=== PATIENT | male | born 1950 | race Caucasian/White ===

== ENCOUNTER 2017-10-19 11:16 | Observation (INO) | payer MEDICARE ==
[2017-10-19] MEDS ORDERED: Nitrostat 0.4 MG (ED) SL ONE ×2 (11:49→12:02)
--- NOTE | 2017-10-19 11:54 | ERPHSYRPT ---
- History of Present Illness Time Seen by Provider: 10/19/17 11:35 Historian: patient Exam Limitations: no limitations Patient Subjective Stated Complaint: pt reports indigestion in middle of chest radiating throughout chest-reports vomiting pain takes breath away and breaking out in sweat Triage Nursing Assessment: pt pink warm and dry-resp nonlabored-pt belching intermittant throughout triage-cap refill 3 seconds Physician History: 66 y/o male with history of a fib and DM comes to the ER with complaints of indigestion of the chest for the last few days. Pt describes the pain as pressure, constant, 10/10 and pt has not taken any pain meds. Pt also admits to having nausea, cough and congestion. Pt is on xarelto for a fib. Pt denies any fever, chills, dizziness, SOB or palpitations. Timing/Duration: day(s) Activities at Onset: none Quality: pressure Location: substernal Chest Pain Radiation: no radiation Severity of Pain-Max: severe Severity of Pain-Current: severe Modifying Factors: Improves With: nothing Associated Symptoms: nausea, vomiting Prior Chest Pain/Cardiac Workup: angina Nitro Today/Relief: no nitro taken today Aspirin Treatment Today: no aspirin today Allergies/Adverse Reactions: No Known Allergies Allergy (Verified 10/19/17 11:40) Home Medications: Gabapentin 300 mg [Neurontin 300 mg] 600 mg PO Q4H 02/22/12 [History] Insulin Aspart [Novolog] 10 units SQ TIDWMEALS 02/22/12 [History] Lisinopril 40 mg PO DAILY 02/22/12 [History] Insulin Glargine [Lantus Insulin] 15 unit SQ QAM 11/16/13 [History] Insulin Aspart [NovoLOG Insulin] 0 unit SQ UD PRN 05/20/16 [History] Rivaroxaban [Xarelto] 20 mg PO DAILY 05/20/16 [History] Atorvastatin Calcium [Lipitor] 10 mg PO DAILY 08/19/16 [History] Docusate Sodium [Colace Clear] 50 mg PO QID 08/19/16 [History] Metoprolol Tartrate 25 mg [Lopressor 25MG Tab] 12.5 mg PO BID 08/19/16 [ History] Hydrocodone/APAP 10/325 mg [Boling 10/325 MG Tablet] 1 tab PO Q4-6HPRN PRN 09/15/16 [History] Hx Tetanus, Diphtheria Vaccination/Date Given: Yes Hx Influenza Vaccination/Date Given: Yes Hx Pneumococcal Vaccination/Date Given: Yes Immunizations Up to Date: Yes - Review of Systems Constitutional: No Fever, No Chills Eyes: No Symptoms Ears, Nose, & Throat: No Symptoms Respiratory: No Cough, No Dyspnea Cardiac: Chest Pain, No Edema, No Syncope Abdominal/Gastrointestinal: No Abdominal Pain, No Nausea, No Vomiting, No Diarrhea Genitourinary Symptoms: No Dysuria Musculoskeletal: No Back Pain, No Neck Pain Skin: No Rash Neurological: No Dizziness, No Focal Weakness, No Sensory Changes Psychological: No Symptoms Endocrine: No Symptoms All Other Systems: Reviewed and Negative - Past Medical History Pertinent Past Medical History: Yes Neurological History: No Pertinent History ENT History: Glaucoma Cardiac History: Arrhythmia, Hypertension, Peripheral Vascular Disease Respiratory History: No Pertinent History Endocrine Medical History: Diabetes Type II Musculoskeletal History: Arthritis GI Medical History: Cirrhosis, GERD, Hepatitis, Hernia History: No Pertinent History Psycho-Social History: Anxiety, Bipolar, Depression, Other Male Reproductive Disorders: No Pertinent History Other Medical History: hepatitis C, AFib, has tried to commit suicide in the past - Past Surgical History Past Surgical History: Yes Neuro Surgical History: No Pertinent History Cardiac: No Pertinent History Respiratory: No Pertinent History Gastrointestinal: Hernia Repair Genitourinary: No Pertinent History Musculoskeletal: Amputation Male Surgical History: No Pertinent History Other Surgical History: 4th and 5th toe amputated off of left foot. 5th toe amputated off of the right foot - Social History Smoking Status: Former smoker Exposure to second hand smoke: No Drug Use: none Patient Lives Alone: Yes - Nursing Vital Signs Nursing Vital Signs: Initial Vital Signs Temperature 98.9 F 10/19/17 11:32 Pulse Rate 80 10/19/17 11:32 Respiratory Rate 20 10/19/17 11:32 Blood Pressure 189/100 10/19/17 11:32 O2 Sat by Pulse Oximetry 100 10/19/17 11:32 Pain Scale Pain Intensity 10 - Physical Exam General Appearance: no apparent distress, alert Eye Exam: PERRL/EOMI, eyes nml inspection Ears, Nose, Throat Exam: normal ENT inspection, moist mucous membranes Neck Exam: normal inspection, non-tender, supple, full range of motion Respiratory Exam: normal breath sounds, lungs clear, No chest tenderness, No respiratory distress Cardiovascular Exam: regular rate/rhythm, normal heart sounds Gastrointestinal/Abdomen Exam: soft, No tenderness, No mass Back Exam: normal inspection, No CVA tenderness, No vertebral tenderness Extremity Exam: normal inspection, normal range of motion Neurologic Exam: alert, oriented x 3, cooperative, normal mood/affect, sensation nml, No motor deficits Skin Exam: normal color, warm, dry SpO2: 100 Oxygen Delivery: Room Air - Course Nursing assessment & vital signs reviewed: Yes EKG Interpreted by Me: Sinus Tach, Other (flat t waves V3-V6) Ordered Tests: Active Orders 24 hr Category Date Time Status Bone Crusher STAT Care 10/19/17 11:49 Active EKG-ER Only STAT Care 10/19/17 11:49 Active IV Insertion STAT Care 10/19/17 11:49 Active CHEST 2 VIEWS (PA AND LAT) Stat Exams 10/19/17 11:49 Completed CBC W DIFF Stat Lab 10/19/17 12:00 Completed CK-Creatinine Phosphokinase Stat Lab 10/19/17 12:00 Completed CMP Stat Lab 10/19/17 12:00 Completed Manual Differential NC Stat Lab 10/19/17 12:00 Completed NT PRO BNP Stat Lab 10/19/17 12:00 Completed PROTIME WITH INR Stat Lab 10/19/17 12:00 Completed PTT Stat Lab 10/19/17 12:00 Completed TROPONIN Q3H Lab 10/19/17 12:00 Completed TROPONIN Q3H Lab 10/19/17 15:00 Ordered TROPONIN Q3H Lab 10/19/17 18:00 Ordered TROPONIN Q3H Lab 10/19/17 21:00 Ordered TROPONIN Q3H Lab 10/20/17 00:00 Ordered Medication Summary Discontinued Medications Generic Name Dose Route Start Last Admin Trade Name Freq PRN Reason Stop Dose Admin Al Hydrox/Mg Hydrox/Simethicone Confirm 10/19/17 12:22 Maalox Es 30 Ml Unit Dose Administered 10/19/17 12:23 Dose 30 ml .ROUTE .STK-MED ONE Lidocaine HCl Confirm 10/19/17 12:22 Xylocaine Hcl Viscous * Administered 10/19/17 12:23 Dose 15 ml .ROUTE .STK-MED ONE Magnesium Hydroxide 45 ml 10/19/17 12:17 10/19/17 12:26 Gi Cocktail 45 Ml (Maalox/Lidocaine) PO 10/19/17 12:18 45 ml STAT ONE Administration Morphine Sulfate 4 mg 10/19/17 12:49 Morphine Sulfate 4 Mg Inj IV 10/19/17 12:50 STAT ONE Nitroglycerin 0.4 mg 10/19/17 11:49 10/19/17 12:11 Nitrostat 0.4 Mg (Ed) SL 10/19/17 11:50 0.4 mg STAT ONE Administration Nitroglycerin Confirm 10/19/17 12:02 Nitrostat 0.4 Mg (Ed) Administered 10/19/17 12:03 Dose 0.4 mg SL .STK-MED ONE Ondansetron HCl 4 mg 10/19/17 12:49 Zofran 4 Mg/2 Ml Vial IV 10/19/17 12:50 STAT ONE Lab/Rad Data: Laboratory Result Diagrams 10/19/17 12:00 10/19/17 12:00 Laboratory Results 10/19/17 10/19/17 10/19/17 Range/Units 12:00 12:00 12:00 WBC (4.0-10.5) K/mm3 RBC (4.1-5.6) M/mm3 Hgb (12.5-18.0) gm/dl Hct (42-50) % MCV (78-100) fl MCH (26-32) pg MCHC (32-36) g/dl RDW (11.5-14.0) % Plt Count (150-450) K/mm3 MPV (6-9.5) fl Segmented Neutrophils (36.-66.) % Lymphocytes (Manual) (24-44) % Monocytes (Manual) (0.0-12.0) % Eosinophils (Manual) (0.00-3.0) % Differential Comment Platelet Estimate (NORMAL) Polychromasia Hypochromasia Poikilocytosis Anisocytosis INR 2.29 (0.8-3.0) APTT 40.3 H (24.1-36.1) SECONDS Sodium 136 (136-145) mEq/L Potassium 3.9 (3.5-5.1) mEq/L Chloride 100 (98-107) mEq/L Carbon Dioxide 28.5 (21-32) mEq/L Anion Gap 11.6 (5-15) MEQ/L BUN 16 (9-20) mg/dL Creatinine 0.92 (0.55-1.30) mg/dl Estimated GFR > 60 ML/MIN Glucose 295 H (70-110) MG/DL Calcium 8.9 (8.5-10.1) mg/dL Total Bilirubin 1.50 H (0.2-1.0) mg/dL AST 45 H (15-37) U/L ALT 13 (12-78) U/L Alkaline Phosphatase 122 H (46-116) U/L Creatine Kinase 102 (39-308) U/L Troponin I < 0.017 (0.000-0.056) ng/ml NT-Pro-B Natriuret Pep 415 H (0-125) pg/ml Serum Total Protein 7.1 (6.4-8.2) gm/dL Albumin 3.2 L (3.4-5.0) g/dL 10/19/17 Range/Units 12:00 WBC 2.8 L (4.0-10.5) K/mm3 RBC 3.99 L (4.1-5.6) M/mm3 Hgb 11.4 L (12.5-18.0) gm/dl Hct 35.0 L (42-50) % MCV 87.7 (78-100) fl MCH 28.5 (26-32) pg MCHC 32.6 (32-36) g/dl RDW 16.1 H (11.5-14.0) % Plt Count 50 L (150-450) K/mm3 MPV 12.6 H (6-9.5) fl Segmented Neutrophils 79 H (36.-66.) % Lymphocytes (Manual) 18 L (24-44) % Monocytes (Manual) 1 (0.0-12.0) % Eosinophils (Manual) 2 (0.00-3.0) % Differential Comment ABNORMAL Platelet Estimate DECREASED (NORMAL) Polychromasia RARE Hypochromasia 1+ Poikilocytosis 1+ Anisocytosis 1+ INR (0.8-3.0) APTT (24.1-36.1) SECONDS Sodium (136-145) mEq/L Potassium (3.5-5.1) mEq/L Chloride (98-107) mEq/L Carbon Dioxide (21-32) mEq/L Anion Gap (5-15) MEQ/L BUN (9-20) mg/dL Creatinine (0.55-1.30) mg/dl Estimated GFR ML/MIN Glucose (70-110) MG/DL Calcium (8.5-10.1) mg/dL Total Bilirubin (0.2-1.0) mg/dL AST (15-37) U/L ALT (12-78) U/L Alkaline Phosphatase (46-116) U/L Creatine Kinase (39-308) U/L Troponin I (0.000-0.056) ng/ml NT-Pro-B Natriuret Pep (0-125) pg/ml Serum Total Protein (6.4-8.2) gm/dL Albumin (3.4-5.0) g/dL - Progress Progress: unchanged Progress Note: 10/19/17 12:49 The patient is still having chest pain after receiving nitro and GI cocktail. The EKG does not show any acute findings and the first troponin is negative. Pt is on eliquis. The patient also has chronically low platelet at 50,000 today. The patient will be admitted to Dr Franklin for chest pain. 10/19/17 13:00 - Departure Time of Disposition: 12:52 Departure Disposition: In-patient Admission Clinical Impression: Chest pain Qualifiers: Chest pain type: unspecified Qualified Code(s): R07.9 - Chest pain, unspecified Condition: Fair Critical Care Time: Yes Critical Care Time(excluding separately billable procedures): 30-74 minutes Referrals: ARNAV GONZÁLES [Primary Care Provider] -
[2017-10-19 12:05] LABS: Granulocyte Absolute (ANC) 1.85 (1.4-6.9); Hemoglobin 11.4 gm/dl (12.5-18.0); Mean Cell Volume 87.7 fl (78-100); Mean Corpuscular Hgb Concent. 32.6 g/dl (32-36); Mean Platelet Volume 12.6 fl (6-9.5); Platelet Count 50 K/mm3 (150-450); Red Blood Count 3.99 M/mm3 (4.1-5.6); Red Cell Distribution Width 16.1 % (11.5-14.0); White Blood Count 2.8 K/mm3 (4.0-10.5)
[2017-10-19 12:07] LABS: Mean Corpuscular Hemoglobin 28.5 pg (26-32)
[2017-10-19] MEDS ORDERED: GI COCKTAIL 45 ML (Maalox/Lidocaine) PO ONE (12:17)
[2017-10-19] MEDS ORDERED: MAALOX ES 30 ML UNIT DOSE ONE (12:22)
[2017-10-19] MEDS ORDERED: XYLOCAINE HCl Viscous ONE (12:22)
--- NOTE | 2017-10-19 12:22 | XRAY ---
Indication: Chest pain. Comparison: August 12, 2016. PA/lateral chest again demonstrates normal heart and lungs with a few incidental calcified granulomas. Bony thorax intact again with mild degenerative changes. No new/acute findings.
[2017-10-19 12:25] LABS: INR 2.29 (0.8-3.0)
[2017-10-19 12:28] LABS: PTT 40.3 SECONDS (24.1-36.1)
[2017-10-19 12:32] LABS: Eosinophil 2 % (0.00-3.0); Lymphocytes 18 % (24-44); Monocyte 1 % (0.0-12.0); Neutrophils 79 % (36.-66.); Total Cells Counted 100
[2017-10-19 12:33] LABS: ANISOCYTOSIS 1+; Hypochromia 1+; Platelet Estimate DECREASED (NORMAL); Poikilocytosis 1+; Polychromasia RARE
[2017-10-19 12:35] LABS: ALBUMIN 3.2 g/dL (3.4-5.0); ALKALINE PHOSPHATASE 122 U/L (46-116); ANION GAP 11.6 MEQ/L (5-15); BLOOD UREA NITROGEN 16 mg/dL (9-20); CHLORIDE 100 mEq/L (98-107); CK-Creatinine Phosphokinase 102 U/L (39-308); Calcium 8.9 mg/dL (8.5-10.1); Carbon Dioxide 28.5 mEq/L (21-32); Creatinine 1 0.92 mg/dl (0.55-1.30); EST GLOMERULAR FILTRATION RATE > 60 ML/MIN; Glucose 295 MG/DL (70-110); NT PRO BNP 415 pg/ml (0-125); Potassium 3.9 mEq/L (3.5-5.1); SGOT/AST 45 U/L (15-37); SGPT/ALT 13 U/L (12-78); SODIUM 136 mEq/L (136-145); Total Protein 7.1 gm/dL (6.4-8.2)
[2017-10-19] MEDS ORDERED: Zofran 4 MG/2 ML VIAL IV ONE (12:49)
[2017-10-19] MEDS ORDERED: MORPHINE SULFATE 4 MG INJ IV ONE (12:49)
[2017-10-19] MEDS ORDERED: MORPHINE SULFATE 4 MG INJ ONE (12:59)
[2017-10-19] MEDS ORDERED: TYLENOL 325 MG PO PRN (13:00)
[2017-10-19] MEDS ORDERED: MILK OF MAGNESIA 30 ML PO PRN (13:00)
[2017-10-19] MEDS ORDERED: Senokot-S Tablet PO PRN (13:00)
[2017-10-19] MEDS ORDERED: Zofran 4 MG/2 ML VIAL IV PRN (13:00)
[2017-10-19] MEDS ORDERED: DIPRIVAN 200 MG/20 ML IV ONE (14:06)
[2017-10-19] MEDS ORDERED: Ketamine HCl 50 MG/ML IV ONE (14:06)
[2017-10-19] MEDS: MORPHINE SULFATE 2 MG INJ IV PRN ×2 (16:32→20:50)
[2017-10-19] MEDS: NovoLOG Insulin SQ PRN ×2 (16:49→21:56)
[2017-10-19] MEDS ORDERED: Zocor 10MG ONE (22:50)
[2017-10-19] MEDS: Lopressor 25MG Tab PO SCH (22:51)
[2017-10-19] MEDS: Zocor 10MG PO SCH (22:51)
[2017-10-19] MEDS: NEURONTIN 300 MG PO SCH (22:52)
[2017-10-19] MEDS: MAALOX ES 30 ML UNIT DOSE PO PRN (22:52)
[2017-10-19] MEDS: Lantus Insulin SQ SCH (22:54)
[2017-10-20] MEDS: MORPHINE SULFATE 2 MG INJ IV PRN ×5 (04:34→20:52)
[2017-10-20 06:36] LABS: Risk Ratio 2.9
[2017-10-20] MEDS: NovoLOG Insulin SQ PRN ×4 (07:59→21:34)
[2017-10-20] MEDS: MAALOX ES 30 ML UNIT DOSE PO PRN (08:34)
[2017-10-20] MEDS: NEURONTIN 300 MG PO SCH ×3 (08:35→20:52)
[2017-10-20] MEDS: Colace 100 MG PO SCH (08:35)
[2017-10-20] MEDS: XARELTO 10 MG TABLET PO SCH (08:35)
[2017-10-20] MEDS: LASIX 20 MG PO SCH (08:35)
[2017-10-20] MEDS: Lopressor 25MG Tab PO SCH ×2 (08:36→20:53)
[2017-10-20] MEDS ORDERED: DOCUSATE SODIUM 50 MG PO SCH (10:00)
[2017-10-20] MEDS ORDERED: NON-FORMULARY ITEM (Rivaroxaban [Xarelto] 20 MG) PO SCH (10:00)
[2017-10-20] MEDS: Carafate 1 GM PO SCH ×3 (11:46→20:53)
--- NOTE | 2017-10-20 15:04 | PCM.HP ---
History of Present Illness - Chief Complaint Chief Complaint: CHEST PAIN History of Present Illness: is a 66 year old male pt of mine from [facility] who came to ER with 2d hx of epigastric and RUQ pain. Some vomiting. no fever. Pain was 10/10 on admission, burning. Now 8-9/10. He did tolerate some breakfast. He has a hx of gastritis, EGD done February 2017 at the [facility] showed the gastritis and small varices. Denies any melena or hematochezia. He has a long history of alcoholism, which he has always admitted to me, but he states that his last drink was 6 mo ago. Pt is being treated for liver cancer - according to pt report has no other areas of cancer. - Review of Systems Respiratory: Cough Cardiac: Chest Pain Abdominal/Gastrointestinal: Abdominal Pain, Nausea, Vomiting Psychological: Alcohol Abuse (no EtOH per pt report x 6 mo), No Depression, No Suicidal Ideations All Other Systems: Reviewed and Negative Medications & Allergies Home Medications: Home Medication List Gabapentin 300 mg [Neurontin 300 mg] 600 mg PO TID 02/22/12 [History Confirmed 10/19/17] Insulin Glargine [Lantus Insulin] 50 unit SQ QHS 11/16/13 [History Confirmed 10/19/17] Insulin Aspart [NovoLOG Insulin] 0 unit SQ UD PRN 05/20/16 [History Confirmed 10/19/17] Rivaroxaban [Xarelto] 20 mg PO DAILY 05/20/16 [History Confirmed 10/19/17] Atorvastatin Calcium [Lipitor] 10 mg PO QHS 08/19/16 [History Confirmed 10/19/17 ] Docusate Sodium [Colace Clear] 50 mg PO DAILY 08/19/16 [History Confirmed ] Metoprolol Tartrate 25 mg [Lopressor 25MG Tab] 12.5 mg PO BID 08/19/16 [ History Confirmed 10/19/17] Furosemide 20 mg [Lasix 20 mg] 20 mg PO DAILY 10/19/17 [History Confirmed 10/19/17] Allergies/Adverse Reactions: Allergies Allergy/AdvReac Type Severity Reaction Status Date / Time No Known Allergies Allergy Verified 10/19/17 11:40 - Past Medical History Past Medical History: Yes Neurological History: No Pertinent History ENT History: Glaucoma Cardiac History: Arrhythmia, Hypertension, Peripheral Vascular Disease Respiratory History: No Pertinent History Endocrine Medical History: Diabetes Type II Musculoskelatal History: Arthritis GI Medical History: Cirrhosis, GERD, Hepatitis, Hernia History: No Pertinent History Pyscho-Social History: Anxiety, Bipolar, Depression, Other Male Reproductive Disorders: No Pertinent History Comment: hepatitis C, AFib, has tried to commit suicide in the past - Past Surgical History Past Surgical History: Yes Neuro Surgical History: No Pertinent History Cardiac History: No Pertinent History Respiratory Surgery: No Pertinent History GI Surgical History: Hernia Repair Genitourinary Surgical Hx: No Pertinent History Musculskeletal Surgical Hx: Amputation Male Surgical History: No Pertinent History Other Surgical History: 4th and 5th toe amputated off of left foot. 5th toe amputated off of the right foot - Social History Smoking Status: Former smoker How long have you smoked: 15 Exposure to second hand smoke: No Alcohol: Rarely Drug Use: none - Physical Exam Vital Signs: Vital Signs - 24 hr Temp Pulse Resp BP Pulse Ox 10/20/17 12:00 97 10/20/17 11:25 98.1 F 76 18 130/66 98 10/20/17 08:00 98 10/20/17 07:25 98.2 F 78 22 111/68 97 10/20/17 04:00 98.1 F 75 20 110/59 95 10/20/17 00:15 97.4 F 84 18 153/83 97 10/20/17 00:00 97 10/19/17 20:00 97.9 F 72 20 127/65 97 10/19/17 16:00 97 General Appearance: no apparent distress, alert Neurologic Exam: oriented x 3, cooperative, normal mood/affect Eye Exam: eyes nml inspection Ears, Nose, Throat Exam: moist mucous membranes Neck Exam: normal inspection Respiratory Exam: normal breath sounds, lungs clear, No crackles/rales, No rhonchi, No wheezing Cardiovascular Exam: normal heart sounds, irregular, No murmur Gastrointestinal/Abdomen Exam: soft, normal bowel sounds, tenderness (epigsatrum , RUQ), No mass, No guarding, No rebound Extremity Exam: normal inspection, No pedal edema, No swelling Skin Exam: normal color, warm, dry, No rash Results - Labs Lab/Micro Results: Accuchecks Date 10/19/17 Time 16:30 Accucheck Value: 294 Accucheck Value: 157 Accucheck Value: 292 Accucheck Value: 268 Lab Results-Last 24 Hours 10/19/17 10/19/17 10/19/17 Range/Units 15:13 15:30 18:37 Hemoglobin A1c 9.4 H (4.5-6.2) Troponin I < 0.017 < 0.017 (0.000-0.056) ng/ml Triglycerides (30-200) mg/dL Cholesterol (100-200) mg/dL LDL Cholesterol (5-99) mg/dL HDL Cholesterol (35-60) mg/dL Heart Disease Risk Ratio 10/19/17 10/20/17 10/20/17 Range/Units 21:30 00:25 05:42 Hemoglobin A1c (4.5-6.2) Troponin I < 0.017 < 0.017 (0.000-0.056) ng/ml Triglycerides 46 (30-200) mg/dL Cholesterol 101 (100-200) mg/dL LDL Cholesterol 60 (5-99) mg/dL HDL Cholesterol 35 (35-60) mg/dL Heart Disease Risk Ratio 2.9 Accuchecks Date 10/19/17 Time 16:30 Accucheck Value: 294 Accucheck Value: 157 Accucheck Value: 292 Accucheck Value: 268 - Radiology Impressions Radiology Exams & Impressions: Radiology Procedures Category Date Time Status GALLBLADDER [US] Routine Exams 10/20/17 Ordered - Other Procedures and Tests Respiratory Therapy 10/20/17 05:00 EKG ONCE 10/21/17 05:00 EKG ONCE 10/22/17 05:00 EKG ONCE Assessment/Plan (1) Abdominal pain Current Visit: Yes Status: Acute Qualifiers: Abdominal location: epigastric Qualified Code(s): R10.13 - Epigastric pain Assessment & Plan: Concern for worsening gastritic or PUD. Starting pt on carafate. He has been on PPI. EGD in the morning. Also check GB u/s today. Code(s): R10.9 - UNSPECIFIED ABDOMINAL PAIN (2) Chest pain Current Visit: Yes Status: Acute Qualifiers: Chest pain type: unspecified Qualified Code(s): R07.9 - Chest pain, unspecified Assessment & Plan: SC ruled out wiht negative troponins. Code(s): R07.9 - CHEST PAIN, UNSPECIFIED (3) Alcohol abuse Current Visit: No Status: Resolved Assessment & Plan: Hx of - pt states none x 6 mo. Code(s): F10.10 - ALCOHOL ABUSE, UNCOMPLICATED (4) Diabetes mellitus Current Visit: No Status: Chronic Assessment & Plan: Poorly controlled - BS 157-292 here. A1c = 9.4. Code(s): E11.9 - TYPE 2 DIABETES MELLITUS WITHOUT COMPLICATIONS (5) Liver cancer Current Visit: Yes Status: Acute Qualifiers: Liver malignancy type: unspecified primary liver malignancy Qualified Code( s): C22.8 - Malignant neoplasm of liver, primary, unspecified as to type Assessment & Plan: [facility] Code(s): C22.9 - MALIG NEOPLASM OF LIVER, NOT SPECIFIED PRIMARY OR SEC
--- NOTE | 2017-10-20 16:12 | XRAY ---
Indication: Epigastric pain. History liver carcinoma with chemotherapy and radiation therapy. Two-dimensional right upper quadrant abdominal sonogram performed. Comparison: None Gallbladder appears partially contracted without gallstones. There is wall thickening up to 3.4 mm. No pericholecystic fluid. Common bile duct measures 4.9 mm. No intrahepatic biliary distention. Visualized portions of the liver homogeneous without focal solid/cystic mass or ascites. Pancreas not well visualized due to overlying bowel gas. Right kidney measures 12.2 cm in length and sonographically unremarkable. Impression: 1. Gallbladder wall thickening without gallstones or pericholecystic fluid. Rule out acalculous chronic cholecystitis. 2. Pancreas not well evaluated. 3. Remaining right upper quadrant sonogram is negative.
[2017-10-20] MEDS: Zocor 10MG PO SCH (20:53)
[2017-10-20] MEDS: Lantus Insulin SQ SCH (20:55)
[2017-10-21] MEDS: MORPHINE SULFATE 2 MG INJ IV PRN ×3 (04:30→21:06)
[2017-10-21] MEDS ORDERED: Lactated Ringers 1,000 ML IV ONE (05:56)
[2017-10-21] MEDS ORDERED: Lactated Ringers 1,000 ML IV SCH (06:30)
[2017-10-21] MEDS: Carafate 1 GM PO SCH ×4 (08:27→21:07)
[2017-10-21] MEDS: LASIX 20 MG PO SCH (08:27)
[2017-10-21] MEDS: Lopressor 25MG Tab PO SCH ×2 (08:28→21:07)
[2017-10-21] MEDS: NEURONTIN 300 MG PO SCH ×3 (08:28→21:06)
[2017-10-21] MEDS: XARELTO 10 MG TABLET PO SCH (08:28)
[2017-10-21] MEDS: Colace 100 MG PO SCH (08:28)
--- NOTE | 2017-10-21 08:34 | PCM.NOTE ---
Date and Time: 10/21/17828 Subjective Assessment: He has continued to have epigastric pain radiating into the chest overnight. Just returned from EGD, he thinks the nurse told him he has gastritis. GB u/s done yesterday showed thickening of the GB wall, no stones. He is very hungry this morning. - Review of Systems Constitutional: No Fever Abdominal/Gastrointestinal: Abdominal Pain Objective Exam General Appearance: no apparent distress, alert Neurologic Exam: oriented x 3, cooperative Skin Exam: normal color, warm, dry, No rash Respiratory Exam: normal breath sounds, lungs clear, wheezing (faint scattered) , No crackles/rales, No rhonchi Cardiovascular Exam: regular rate/rhythm, normal heart sounds, No murmur Extremity Exam: normal inspection, No pedal edema, No swelling Back Exam: normal inspection, No rash OBJECTIVE DATA Vital Signs: Vital Signs - 24 hr Temp Pulse Resp BP Pulse Ox 10/21/17 07:20 98.3 F 85 20 141/82 96 10/21/17 06:05 98.3 F 85 20 141/82 96 10/21/17 04:10 98.7 F 77 20 124/67 96 10/21/17 04:00 98 10/21/17 00:01 97.7 F 68 16 120/72 98 10/21/17 00:00 95 10/20/17 20:05 97.9 F 70 18 138/81 99 10/20/17 20:00 99 10/20/17 16:00 96 10/20/17 15:42 98 F 80 20 126/85 96 10/20/17 12:00 97 10/20/17 11:25 98.1 F 76 18 130/66 98 Pain Assessment - Last Documented Pain Intensity 8 Pain Scale Used 0-10 Pain Scale Intake and Output: Intake & Output 10/18/17 10/19/17 10/20/17 10/21/17 11:59 11:59 11:59 11:59 Intake Total 1200 1010 Output Total 700 Balance 1200 310 Weight 110.4 kg 110.4 kg Lab Results: Accuchecks Date 10/21/17 Date 10/20/17 Time 07:00 Time 22:00 Accucheck Value: 83 Accucheck Value: 279 Accucheck Value: 212 Accucheck Value: 294 Radiology Exams: Radiology Procedures Category Date Time Status GALLBLADDER [US] Routine Exams 10/20/17 15:22 Completed HIDA-GALL BLADDER [NUCMED] Routine Exams 10/21/17 08:28 Ordered Assessment/Plan (1) Abdominal pain Current Visit: Yes Status: Acute Qualifiers: Abdominal location: epigastric Qualified Code(s): R10.13 - Epigastric pain Assessment & Plan: Do HIDA scan today. EGD report is pending. I started him on carafate yesterday , and started protonix today (I mistakenly thought he was already on a PPI). He had an EGD and colonoscopy at the [facility] in February 2017 (records were faxed to the office last week, should be scanned into [facility] [facility]). Showed gastritis and multiple colon polyps. Code(s): R10.9 - UNSPECIFIED ABDOMINAL PAIN (2) Chest pain Current Visit: Yes Status: Acute Qualifiers: Chest pain type: unspecified Qualified Code(s): R07.9 - Chest pain, unspecified Assessment & Plan: HI ruled out on admission. nitro without relief yesterday. Code(s): R07.9 - CHEST PAIN, UNSPECIFIED (3) Alcohol abuse Current Visit: No Status: Resolved Assessment & Plan: long hx. Claims no alcohol x 6 mo. Code(s): F10.10 - ALCOHOL ABUSE, UNCOMPLICATED (4) Diabetes mellitus Current Visit: No Status: Chronic Assessment & Plan: Uncontrolled. A1c 9.4. Code(s): E11.9 - TYPE 2 DIABETES MELLITUS WITHOUT COMPLICATIONS (5) Liver cancer Current Visit: Yes Status: Acute Qualifiers: Liver malignancy type: unspecified primary liver malignancy Qualified Code( s): C22.8 - Malignant neoplasm of liver, primary, unspecified as to type Assessment & Plan: Being treated now with radiation, after having had chemotherapy (per pt report) . He states it is a small area of cancer and claims no metastases have been found. Code(s): C22.9 - MALIG NEOPLASM OF LIVER, NOT SPECIFIED PRIMARY OR SEC
[2017-10-21 08:42] LABS: BASOPHIL % 0.4 % (0.0-0.4); Basophil (Absolute #) 0.01 (0-0.4); Eosinophil % 3.9 % (0.00-5.0); Granulocyte Absolute (ANC) 1.64 (1.4-6.9); Granulocytes % 63.3 % (36.0-66.0); Hematocrit 36.1 % (42-50); Hemoglobin 11.4 gm/dl (12.5-18.0); Lymphocyte (Absolute #) 0.41 (1.0-4.6); Lymphocytes % 15.8 % (24.0-44.0); Mean Cell Volume 89.6 fl (78-100); Mean Corpuscular Hgb Concent. 31.6 g/dl (32-36); Mean Platelet Volume 12.2 fl (6-9.5); Monocyte (Absolute #) 0.43 (0.0-1.3); Monocytes % 16.6 % (0.0-12.0); Platelet Count 48 K/mm3 (150-450); Red Blood Count 4.03 M/mm3 (4.1-5.6); Red Cell Distribution Width 16.2 % (11.5-14.0); White Blood Count 2.6 K/mm3 (4.0-10.5)
[2017-10-21 09:03] LABS: ANION GAP 9.2 MEQ/L (5-15); BLOOD UREA NITROGEN 13 mg/dL (9-20); CHLORIDE 103 mEq/L (98-107); Calcium 8.3 mg/dL (8.5-10.1); Carbon Dioxide 30.6 mEq/L (21-32); Creatinine 1 0.87 mg/dl (0.55-1.30); EST GLOMERULAR FILTRATION RATE > 60 ML/MIN; Glucose 109 MG/DL (70-110); Potassium 4.1 mEq/L (3.5-5.1); SODIUM 139 mEq/L (136-145)
[2017-10-21 09:08] LABS: Mean Corpuscular Hemoglobin 28.2 pg (26-32)
[2017-10-21 09:13] LABS: Slide Review 1 YES
[2017-10-21] MEDS ORDERED: Protonix 40MG Tablet PO SCH (10:00)
--- NOTE | 2017-10-21 11:58 | OP ---
SURGERY DATE/TIME: 10/21/201720 PREOPERATIVE DIAGNOSIS: Chest pain, nausea, reflux. POSTOPERATIVE DIAGNOSIS: Severe gastritis. PROCEDURE: Esophagogastroduodenoscopy with biopsy. SURGEON: Dr. Funk. ANESTHESIA: Medications were given by the anesthesia department. BRIEF HISTORY: The patient is a 66 year old white male patient who is currently hospitalized for chest discomfort. His heart had apparently been checked out and fine at this point. We felt he needed endoscopic evaluation to evaluate the esophagus and stomach for etiology of his chest discomfort. The patient was appraised of the risks of the procedure including the risk of perforation, phlebitis, untoward reaction to medication, bleeding and missed lesions. The patient verbalized his understanding and desired to have the procedure performed. DESCRIPTION OF PROCEDURE: The patient was given the medications by the anesthesia department. He had continuous pulse oximetry, ECG monitoring, intermittent blood pressure monitoring and tidal CO2 monitoring during the examination. He was placed in the left lateral decubitus position. A bite block was placed and the flexible Olympus gastroscope was used to intubate the oropharynx. A view of the larynx was obtained and was essentially normal. The scope was easily introduced in the esophagus which was normal throughout its length. The stomach was entered where moderate to severe gastritis was noted. The scope was passed along the greater curvature of the stomach to the antrum where there appeared to be erosions but no deep ulcerations and no bleeding. The pylorus was intubated and the duodenum inspected and found to be essentially normal. At this point the patient was noted to be hypoxic. We terminated this portion of the procedure and bagged him with Ambu for a while until his saturations came back up to normal again. Once he was stable once again we introduced the scope to the antrum and biopsied to rule out the presence of Helicobacter pylori-type organisms. The scope was then removed from the patient who afterwards was continued to be monitored carefully and he quickly responded after the propofol wore off. He was in good shape again and responding, alert and oriented x3. He appeared to be stable. He was taken back to the recovery room stable condition at this point and then back to the hospital [facility] in good condition.
[2017-10-21] MEDS: OXYCODONE-ACETAMINOPHEN 10-325 PO PRN (14:29)
--- NOTE | 2017-10-21 14:45 | XRAY ---
Indication: Epigastric pain. GERD. History liver cancer with radiation and chemotherapy. Gallbladder wall thickening on recent sonogram. Comparison: None Patient received 5.8 mCi technetium 99 Choletec. Immediate anterior planar imaging was performed out to 80 minutes. Normal hepatic activity on the first image. Normal biliary and biliary to bowel activity within 20 minutes. Normal gallbladder activity within 75 minutes. Patient received 2.2 g of IV CCK slowly and asymptomatic during injection. Ejection fraction calculated 45%, within normal range. Impression: Negative HIDA scan. Ejection fraction 45% within normal range.
[2017-10-21] MEDS ORDERED: PROTONIX 40 MG IV IV ONE (16:00)
[2017-10-21] MEDS: NovoLOG Insulin SQ PRN ×2 (16:04→21:08)
[2017-10-21] MEDS: Zocor 10MG PO SCH (21:07)
[2017-10-21] MEDS: Lantus Insulin SQ SCH (21:07)
[2017-10-22] MEDS: MORPHINE SULFATE 2 MG INJ IV PRN ×2 (03:58→07:46)
[2017-10-22 05:59] LABS: Hematocrit 32.6 % (42-50); Hemoglobin 10.3 gm/dl (12.5-18.0); Mean Cell Volume 89.8 fl (78-100); Mean Corpuscular Hgb Concent. 31.6 g/dl (32-36); Mean Platelet Volume 13.1 fl (6-9.5); Red Blood Count 3.63 M/mm3 (4.1-5.6); Red Cell Distribution Width 16.4 % (11.5-14.0); White Blood Count 2.3 K/mm3 (4.0-10.5)
[2017-10-22 06:03] LABS: ANION GAP 11.3 MEQ/L (5-15); BLOOD UREA NITROGEN 15 mg/dL (9-20); CHLORIDE 104 mEq/L (98-107); Calcium 8.4 mg/dL (8.5-10.1); Carbon Dioxide 30.1 mEq/L (21-32); Creatinine 1 0.86 mg/dl (0.55-1.30); EST GLOMERULAR FILTRATION RATE > 60 ML/MIN; Glucose 121 MG/DL (70-110); Potassium 4.1 mEq/L (3.5-5.1); SODIUM 141 mEq/L (136-145)
[2017-10-22 06:05] LABS: Mean Corpuscular Hemoglobin 28.3 pg (26-32)
[2017-10-22 07:31] VITALS: O2SAT 95
[2017-10-22] MEDS: Carafate 1 GM PO SCH ×2 (07:35→11:53)
[2017-10-22] MEDS: XARELTO 10 MG TABLET PO SCH (08:12)
[2017-10-22] MEDS ORDERED: PROTONIX 40 MG IV IV SCH (10:00)
[2017-10-22] MEDS: Colace 100 MG PO SCH (10:03)
[2017-10-22] MEDS: NEURONTIN 300 MG PO SCH (10:03)
[2017-10-22] MEDS: Lopressor 25MG Tab PO SCH (10:03)
[2017-10-22] MEDS: LASIX 20 MG PO SCH (10:04)
[2017-10-22] MEDS: OXYCODONE-ACETAMINOPHEN 10-325 PO PRN (10:12)
--- NOTE | 2017-10-22 10:58 | PCM.DCORD ---
- Discharge Discharge Date: 10/22/17 Disposition: Home, Self-Care Condition: Good Prescriptions: New Sucralfate 1 gm [Carafate 1 GM] 1 g PO ACHS #120 tablet Mag Hydrox/Al Hydrox/Simeth [Maalox Es 30 ml Unit Dose] 30 ml PO Q4H PRN PRN udcup PRN Reason: Indigestion Magnesium Hydroxide 30 ml [Milk of Magnesia 30 ml] 30 - 60 ml PO QDP PRN udcup PRN Reason: Constipation Oxycodone / APAP 10/325 mg [Oxycodone-Acetaminophen 10-325] 1 tab PO Q4H PRN PRN tablet MDD 6 PRN Reason: Pain PANTOPRAZOLE 40 mg Tablet [Protonix 40MG Tablet] 40 mg PO BID #60 tab Continue Gabapentin 300 mg [Neurontin 300 mg] 600 mg PO TID Insulin Glargine [Lantus Insulin] 50 unit SQ QHS Insulin Aspart [NovoLOG Insulin] 0 unit SQ UD PRN PRN Reason: elevated blood sugar Rivaroxaban [Xarelto] 20 mg PO DAILY Atorvastatin Calcium [Lipitor] 10 mg PO QHS Metoprolol Tartrate 25 mg [Lopressor 25MG Tab] 12.5 mg PO BID Docusate Sodium [Colace Clear] 50 mg PO DAILY Furosemide 20 mg [Lasix 20 mg] 20 mg PO DAILY Follow up with: ARNAV GONZÁLES [Primary Care Provider] - 1 Week
[2017-10-22 11:50] VITALS: BP 138/65; PULSE 81
[2017-10-22 14:20] LABS: Eosinophil 1 % (0.00-3.0); Lymphocytes 18 % (24-44); Monocyte 7 % (0.0-12.0); Neutrophils 74 % (36.-66.); Total Cells Counted 100
[2017-10-22 14:21] LABS: ANISOCYTOSIS 1+; Platelet Estimate DECREASED (NORMAL); Poikilocytosis 1+; Schistocytes 1+
[2017-10-22 14:23] LABS: Platelet Count 48 K/mm3 (150-450)
== END 2017-10-22 13:45 | disposition home or self-care (01) ==
LOC: ED 11:16 → MED SURG 14:05
PROVIDERS: ADMIT Family Medicine; ATTEND Family Medicine
PROC: 0DB78ZX Excision of Stomach, Pylorus, Via Natural or Artificial Opening Endoscopic, Diagnostic (ICD-10-PCS; principal; 2017-10-21)
DX: R10.13 Epigastric pain (principal); R07.9 Chest pain, unspecified; F10.10 Alcohol abuse, uncomplicated; E11.9 Type 2 diabetes mellitus without complications; C22.8 Malignant neoplasm of liver, primary, unspecified as to type; K29.70 Gastritis, unspecified, without bleeding
CPT/HCPCS: 00731; 36000; 36415; 71046; 76705; 78227; 80048; 80053; 80061; 82550; 82962; 83036; 83721; 83880; 84484; 85025; 85610; 85730; 93005; 93041; 93268; 96374; 96375; 99285; A9537; G0378; J2270; J2405; J2704; J2805; A9270-GY

== ENCOUNTER 2018-12-10 14:07 | Emergency (ER) | payer MEDICARE ==
[2018-12-10] MEDS ORDERED: MORPHINE SULFATE 2 MG INJ IV ONE (14:35)
[2018-12-10] MEDS ORDERED: MORPHINE SULFATE 2 MG INJ ONE (14:40)
--- NOTE | 2018-12-10 14:41 | ERPHSYRPT ---
- History of Present Illness Time Seen by Provider: 12/10/18 14:38 Source: patient Exam Limitations: no limitations Patient Subjective Stated Complaint: states noticed red, tender area to right lateral thigh this am. Triage Nursing Assessment: large red, tender open area noted to right lateral thigh. appears to have skin slough. small amt drainage noted. patient denies using a heating pad or injuring leg. Physician History: states noticed red, tender area to right lateral thigh this am. Timing/Duration: today Quality: burning, painful Severity: moderate Location: extremities Possible Causes: no cause identified Associated Symptoms: denies symptoms Allergies/Adverse Reactions: duloxetine [From Cymbalta] Allergy (Verified 12/10/18 14:12) pregabalin [From Lyrica] Allergy (Verified 12/10/18 14:12) Home Medications: Gabapentin 300 mg [Neurontin 300 mg] 600 mg PO TID 02/22/12 [History] Insulin Glargine [Lantus Insulin] 50 unit SQ QHS 11/16/13 [History] Insulin Aspart [NovoLOG Insulin] 0 unit SQ UD PRN 05/20/16 [History] Rivaroxaban [Xarelto] 20 mg PO DAILY 05/20/16 [History] Atorvastatin Calcium [Lipitor] 10 mg PO QHS 08/19/16 [History] Docusate Sodium [Colace Clear] 50 mg PO DAILY 08/19/16 [History] Metoprolol Tartrate 25 mg [Lopressor 25MG Tab] 12.5 mg PO BID 08/19/16 [ History] Furosemide 20 mg [Lasix 20 mg] 20 mg PO DAILY 10/19/17 [History] Hx Tetanus, Diphtheria Vaccination/Date Given: Yes Hx Influenza Vaccination/Date Given: Yes Hx Pneumococcal Vaccination/Date Given: Yes - Review of Systems Constitutional: No Fever, No Chills Eyes: No Symptoms Ears, Nose, & Throat: No Symptoms Respiratory: No Cough, No Dyspnea Cardiac: No Chest Pain, No Edema, No Syncope Abdominal/Gastrointestinal: No Abdominal Pain, No Nausea, No Vomiting, No Diarrhea Genitourinary Symptoms: No Dysuria Musculoskeletal: No Back Pain, No Neck Pain Skin: Other (superficial epidermal exfoliation), No Rash Neurological: No Dizziness, No Focal Weakness, No Sensory Changes Psychological: No Symptoms Endocrine: No Symptoms All Other Systems: Reviewed and Negative - Past Medical History Pertinent Past Medical History: Yes Neurological History: No Pertinent History ENT History: Glaucoma Cardiac History: Arrhythmia, Hypertension, Peripheral Vascular Disease Respiratory History: No Pertinent History Endocrine Medical History: Diabetes Type II Musculoskeletal History: Arthritis GI Medical History: Cirrhosis, GERD, Hepatitis, Hernia, Liver Cancer History: No Pertinent History Psycho-Social History: Anxiety, Bipolar, Depression, Other Male Reproductive Disorders: No Pertinent History Other Medical History: hepatitis C, AFib, has tried to commit suicide in the past - Past Surgical History Past Surgical History: Yes Neuro Surgical History: No Pertinent History Cardiac: No Pertinent History Respiratory: No Pertinent History Gastrointestinal: Hernia Repair Genitourinary: No Pertinent History Musculoskeletal: Amputation Male Surgical History: No Pertinent History Other Surgical History: 4th and 5th toe amputated off of left foot. 5th toe amputated off of the right foot - Social History Smoking Status: Former smoker How long have you smoked: 15 Exposure to second hand smoke: Yes Drug Use: none Patient Lives Alone: Yes - Nursing Vital Signs Nursing Vital Signs: Initial Vital Signs Temperature 98 F 12/10/18 14:10 Pulse Rate 73 12/10/18 14:10 Respiratory Rate 16 12/10/18 14:10 Blood Pressure 162/101 12/10/18 14:10 O2 Sat by Pulse Oximetry 96 12/10/18 14:10 Pain Scale Pain Intensity 8 - Physical Exam General Appearance: no apparent distress, alert Eye Exam: PERRL/EOMI, eyes nml inspection Ears, Nose, Throat Exam: normal ENT inspection, pharynx normal, moist mucous membranes Neck Exam: normal inspection, non-tender, supple, full range of motion Respiratory Exam: normal breath sounds, lungs clear, No respiratory distress Cardiovascular Exam: regular rate/rhythm, normal heart sounds Gastrointestinal/Abdomen Exam: soft, mass, No tenderness Back Exam: normal inspection, normal range of motion, No CVA tenderness, No vertebral tenderness Extremity Exam: normal inspection, normal range of motion Neurologic Exam: alert, oriented x 3, cooperative, normal mood/affect, sensation nml, No motor deficits Skin Exam: normal color, warm, dry, other (exfoliation of skin on right lateral thigh) SpO2: 96 - Course Nursing assessment & vital signs reviewed: Yes Ordered Tests: Active Orders 24 hr Category Date Time Status Wound Care STAT Care 12/10/18 14:35 Active CBC W DIFF Stat Lab 12/10/18 14:44 Completed CMP Stat Lab 12/10/18 14:44 Completed Lactic Acid Stat Lab 12/10/18 14:35 Completed UA W/RFX UR CULTURE Stat Lab 12/10/18 14:37 Uncollected Medication Summary Discontinued Medications Generic Name Dose Route Start Last Admin Trade Name Freq PRN Reason Stop Dose Admin Bacitracin Zinc 0.9 gm 12/10/18 14:49 12/10/18 14:51 Baciguent Packet TP 12/10/18 14:50 0.9 gm STAT ONE Administration Morphine Sulfate 2 mg 12/10/18 14:35 12/10/18 14:42 Morphine Sulfate 2 Mg Inj IV 12/10/18 14:36 2 mg STAT ONE Administration Morphine Sulfate Confirm 12/10/18 14:40 Morphine Sulfate 2 Mg Inj Administered 12/10/18 14:41 Dose 2 mg .ROUTE .STK-MED ONE Lab/Rad Data: Laboratory Result Diagrams 12/10/18 14:44 12/10/18 14:44 Laboratory Results 12/10/18 12/10/18 12/10/18 Range/Units 14:44 14:44 14:35 WBC 5.6 (4.0-10.5) K/mm3 RBC 3.76 L (4.1-5.6) M/mm3 Hgb 10.6 L (12.5-18.0) gm/dl Hct 33.6 L (42-50) % MCV 89.4 (78-100) fl MCH 28.1 (26-32) pg MCHC 31.5 L (32-36) g/dl RDW 18.2 H (11.5-14.0) % Plt Count 60 L (150-450) K/mm3 MPV 11.9 H (6-9.5) fl Gran % 78.5 H (36.0-66.0) % Eos # (Auto) 0.10 (0-0.5) Absolute Lymphs (auto) 0.60 L (1.0-4.6) Absolute Monos (auto) 0.50 (0.0-1.3) Lymphocytes % 10.6 L (24.0-44.0) % Monocytes % 8.9 (0.0-12.0) % Eosinophils % 1.8 (0.00-5.0) % Basophils % 0.2 (0.0-0.4) % Absolute Granulocytes 4.43 (1.4-6.9) Basophils # 0.01 (0-0.4) Sodium 136 L (137-145) mmol/L Potassium 4.1 (3.5-5.1) mmol/L Chloride 98 (98-107) mmol/L Carbon Dioxide 31 H (22-30) mmol/L Anion Gap 10.8 (5-15) MEQ/L BUN 13 (9-20) mg/dL Creatinine 0.71 (0.66-1.25) mg/dL Estimated GFR > 60.0 ML/MIN Glucose 323 H (74-106) mg/dL Lactic Acid 1.4 (0.4-2.0) Calcium 8.9 (8.4-10.2) mg/dL Total Bilirubin 1.70 H (0.2-1.3) mg/dL AST 34 (17-59) U/L ALT 12 (0-50) U/L Alkaline Phosphatase 158 H (38-126) U/L Serum Total Protein 7.6 (6.3-8.2) g/dL Albumin 3.6 (3.5-5.0) g/dL Slides for Path Review YES - Progress Progress: unchanged, pain not gone completely Counseled pt/family regarding: lab results, diagnosis, need for follow-up - Departure Departure Disposition: Home Clinical Impression: Cicatricial pemphigoid Condition: Stable Critical Care Time: No Referrals: ARNAV GONZÁLES [Primary Care Provider] - Prescriptions: Mupirocin [Bactroban OINTMENT] 1 gm TP BID #30 tube Methylprednisolone Packet [Medrol Dosepack] 4 mg PO UD #30 packet
[2018-12-10] MEDS ORDERED: BACIGUENT PACKET TP ONE (14:49)
[2018-12-10 14:50] LABS: BASOPHIL % 0.2 % (0.0-0.4); Basophil (Absolute #) 0.01 (0-0.4); Eosinophil % 1.8 % (0.00-5.0); Granulocyte Absolute (ANC) 4.43 (1.4-6.9); Granulocytes % 78.5 % (36.0-66.0); Hematocrit 33.6 % (42-50); Hemoglobin 10.6 gm/dl (12.5-18.0); Lymphocytes % 10.6 % (24.0-44.0); Mean Cell Volume 89.4 fl (78-100); Mean Corpuscular Hgb Concent. 31.5 g/dl (32-36); Mean Platelet Volume 11.9 fl (6-9.5); Monocytes % 8.9 % (0.0-12.0); Platelet Count 60 K/mm3 (150-450); Red Blood Count 3.76 M/mm3 (4.1-5.6); Red Cell Distribution Width 18.2 % (11.5-14.0); White Blood Count 5.6 K/mm3 (4.0-10.5)
[2018-12-10 14:57] LABS: ALBUMIN 3.6 g/dL (3.5-5.0); ALKALINE PHOSPHATASE 158 U/L (38-126); ANION GAP 10.8 MEQ/L (5-15); BLOOD UREA NITROGEN 13 mg/dL (9-20); CHLORIDE 98 mmol/L (98-107); Calcium 8.9 mg/dL (8.4-10.2); Carbon Dioxide 31 mmol/L (22-30); Creatinine 1 0.71 mg/dL (0.66-1.25); Glucose 323 mg/dL (74-106); Potassium 4.1 mmol/L (3.5-5.1); SGOT/AST 34 U/L (17-59); SGPT/ALT 12 U/L (0-50); SODIUM 136 mmol/L (137-145); Total Protein 7.6 g/dL (6.3-8.2)
[2018-12-10 14:58] LABS: Mean Corpuscular Hemoglobin 28.1 pg (26-32)
[2018-12-10 14:59] LABS: Slide Review 1 YES
[2018-12-10 16:19] VITALS: BP 155/85; PULSE 85; O2SAT 94
[2018-12-10] MEDS ORDERED: TORAdol 30 mg Injection IM ONE (16:36)
[2018-12-10] MEDS ORDERED: TORAdol 30 mg Injection ONE (16:45)
== END 2018-12-10 17:37 | disposition home or self-care (01) ==
LOC: ED 14:07
DX: L12.1 Cicatricial pemphigoid (principal); I10 Essential (primary) hypertension; I73.9 Peripheral vascular disease, unspecified; E11.8 Type 2 diabetes mellitus with unspecified complications; K74.60 Unspecified cirrhosis of liver; K21.9 Gastro-esophageal reflux disease without esophagitis; K75.9 Inflammatory liver disease, unspecified; Z85.05 Personal history of malignant neoplasm of liver
CPT/HCPCS: 36415; 80053; 83605; 85025; 96372; 96374; 99284; J1885; J2270; A9270-GY

== ENCOUNTER 2019-03-08 13:02 | Emergency (ER) | payer MEDICARE ==
--- NOTE | 2019-03-08 13:51 | ERPHSYRPT ---
- History of Present Illness Source: patient Exam Limitations: clinical condition Patient Subjective Stated Complaint: Pt states that he has drank over 9 (1/2 gallon) bottles of vodka in the past 2 weeks and hasn't eaten anything for 2 weeks, been an alcoholic for years, stated that the [facility] told him to get in here and get some fluids, he had called Dr. Zhou's office and they told him that they were going to see about getting him admitted Triage Nursing Assessment: Pt walks in with a cane with an unsteady gait, stated that his last drink was about 0300, tremors, hypertensive, belching, bowel sounds heard in all 4 quadrants, pulses normal, rates pain 8/10 in abdomen and lower extremeties, states that he does have neuropathy, liver cancer , sleepy Physician History: Pt is a 68 y/o male with a h/o alcohol abvuse, and hepatic carcinoma. Pt had Hep C as well, but was treated for it. Pt was on a drinking binge and had multiple bottles of vodka in the last two weeks. He did not eat for a prolonged period of time. Pt called the [facility], and was told to come to the ER and to go to [facility]. Pt complains of severe N/V, tremors and anxiety. He said that5 did not have seizures in the past with his DTs. Last ETOH drink was today at 3; 30AM. Timing/Duration: today Severity of Symptoms-Max: moderate Severity of Symptoms-Current: moderate Associated Symptoms: anxiety, depressed, impaired concentration Allergies/Adverse Reactions: duloxetine [From Cymbalta] Allergy (Verified 12/10/18 14:12) pregabalin [From Lyrica] Allergy (Verified 12/10/18 14:12) Home Medications: Insulin Glargine [Lantus Insulin] 50 unit SQ QHS 11/16/13 [History] Insulin Aspart [NovoLOG Insulin] 0 unit SQ UD PRN 05/20/16 [History] Metoprolol Tartrate 25 mg [Lopressor 25MG Tab] 12.5 mg PO BID 08/19/16 [ History] Furosemide 20 mg [Lasix 20 mg] 20 mg PO DAILY 10/19/17 [History] Spironolactone 25 mg [Aldactone 25 MG] 50 mg PO DAILY 03/08/19 [History] Hx Tetanus, Diphtheria Vaccination/Date Given: Yes Hx Influenza Vaccination/Date Given: Yes Hx Pneumococcal Vaccination/Date Given: Yes - Past Medical History Pertinent Past Medical History: Yes Neurological History: No Pertinent History ENT History: Glaucoma Cardiac History: Arrhythmia, Hypertension, Peripheral Vascular Disease Respiratory History: No Pertinent History Endocrine Medical History: Diabetes Type II Musculoskeletal History: Arthritis GI Medical History: Cirrhosis, GERD, Hepatitis, Hernia, Liver Cancer History: No Pertinent History Psycho-Social History: Anxiety, Bipolar, Depression, Other Male Reproductive Disorders: No Pertinent History Other Medical History: hepatitis C, AFib, has tried to commit suicide in the past - Past Surgical History Past Surgical History: Yes Neuro Surgical History: No Pertinent History Cardiac: No Pertinent History Respiratory: No Pertinent History Gastrointestinal: Hernia Repair Genitourinary: No Pertinent History Musculoskeletal: Amputation Male Surgical History: No Pertinent History Other Surgical History: 4th and 5th toe amputated off of left foot. 5th toe amputated off of the right foot - Social History Smoking Status: Former smoker How long have you smoked: 15 Exposure to second hand smoke: Yes Drug Use: none Patient Lives Alone: Yes - Review of Systems Constitutional: Malaise, Night Sweats, Weakness Eyes: No Symptoms Ears, Nose, & Throat: No Symptoms Respiratory: No Cough, No Dyspnea Cardiac: No Chest Pain, No Edema, No Syncope Abdominal/Gastrointestinal: Abdominal Pain, Nausea, Vomiting, Diarrhea Genitourinary Symptoms: No Dysuria Musculoskeletal: Arthralgias, Myalgias Skin: No Rash Psychological: Alcohol Abuse, Anxiety, Depression - Nursing Vital Signs Nursing Vital Signs: Initial Vital Signs Temperature 97.4 F 03/08/19 13:11 Pulse Rate 96 H 03/08/19 13:11 Respiratory Rate 16 03/08/19 13:11 Blood Pressure 163/94 03/08/19 13:11 O2 Sat by Pulse Oximetry 96 03/08/19 13:11 Pain Scale Pain Intensity 8 - Physical Exam General Appearance: moderate distress, anxiety Eyes, Ears, Nose, Throat Exam: normal ENT inspection, moist mucous membranes Neck Exam: normal inspection, non-tender, supple Respiratory Exam: normal breath sounds, lungs clear, No respiratory distress Cardiovascular Exam: regular rate/rhythm, No edema Gastrointestinal/Abdominal Exam: soft, tenderness (diffused) Current Suicidality: denies suicide plan Neurological Exam: anxious, depressed affect Appearance: disheveled Behavior/Eye Contact/Speech: alert & cooperative Skin Exam: normal color, warm, dry, No rash SpO2 Interpretation: normal SpO2: 96 O2 Delivery: Room Air - Progress Progress: unchanged Progress Note: 03/08/19 13:54 [facility]. Pt will be give IVF, and Ativan 2mg IV prior to transfer. [facility] Pt is aware of the transfer. Will see patient in: other ([facility] the [facility]) Counseled pt/family regarding: drug and/or alcohol abuse - Departure Departure Disposition: Transfer Clinical Impression: DTs (delirium tremens), Alcohol withdrawal syndrome Condition: Stable Critical Care Time: No Referrals: ARNAV ZHOU [Primary Care Provider] - Additional Instructions: [facility].
[2019-03-08] MEDS ORDERED: Sodium Chloride 0.9% 1000 ML 1,000 ML IV STA (13:56)
[2019-03-08] MEDS ORDERED: Ativan 2 MG/1 ML VIAL IV ONE (13:57)
[2019-03-08] MEDS ORDERED: Vitamins For Infusion 10 ML INJECTION*** 10 ML, THIAMINE 200 MG/2 ML*** 100 MG, FOLNATE... IV SCH ×4 (14:00)
[2019-03-08] MEDS ORDERED: Ativan 2 MG/1 ML VIAL ONE (14:04)
[2019-03-08] MEDS ORDERED: Sodium Chloride 0.9% 1000 ML 1,000 ML ONE (14:05)
[2019-03-08 14:18] LABS: BASOPHIL % 0.2 % (0.0-0.4); Basophil (Absolute #) 0.01 (0-0.4); Granulocyte Absolute (ANC) 3.23 (1.4-6.9); Granulocytes % 64.9 % (36.0-66.0); Hematocrit 37.6 % (42-50); Hemoglobin 12.7 gm/dl (12.5-18.0); Lymphocyte (Absolute #) 1.07 (1.0-4.6); Lymphocytes % 21.5 % (24.0-44.0); Mean Cell Volume 94.5 fl (78-100); Mean Corpuscular Hemoglobin 31.9 pg (26-32); Mean Corpuscular Hgb Concent. 33.8 g/dl (32-36); Monocyte (Absolute #) 0.57 (0.0-1.3); Monocytes % 11.4 % (0.0-12.0); Platelet Count 46 K/mm3 (150-450); Red Blood Count 3.98 M/mm3 (4.1-5.6); Red Cell Distribution Width 17.8 % (11.5-14.0)
[2019-03-08 14:30] LABS: ALBUMIN 3.7 g/dL (3.5-5.0); ALKALINE PHOSPHATASE 151 U/L (38-126); ANION GAP 14.9 MEQ/L (5-15); BLOOD UREA NITROGEN 15 mg/dL (9-20); CHLORIDE 96 mmol/L (98-107); Calcium 8.8 mg/dL (8.4-10.2); Carbon Dioxide 30 mmol/L (22-30); Creatinine 1 0.65 mg/dL (0.66-1.25); Glucose 209 mg/dL (74-106); Potassium 3.8 mmol/L (3.5-5.1); SGOT/AST 64 U/L (17-59); SGPT/ALT 17 U/L (0-50); SODIUM 137 mmol/L (137-145); Total Protein 7.4 g/dL (6.3-8.2)
[2019-03-08] MEDS ORDERED: MORPHINE SULFATE 2 MG INJ IV ONE (15:16)
[2019-03-08 15:23] LABS: MAGNESIUM 1.7 mg/dL (1.6-2.3)
[2019-03-08] MEDS ORDERED: MORPHINE SULFATE 2 MG INJ ONE (15:28)
[2019-03-08 16:07] VITALS: BP 160/106; PULSE 98; O2SAT 95
== END 2019-03-08 16:08 | disposition short-term general hospital (02) ==
LOC: ED 13:02 → UNDOADMOB 14:19 → MED SURG 14:19 → ED 16:08
DX: F10.231 Alcohol dependence with withdrawal delirium (principal); F10.239 Alcohol dependence with withdrawal, unspecified; E11.9 Type 2 diabetes mellitus without complications; Z79.899 Other long term (current) drug therapy; I73.9 Peripheral vascular disease, unspecified; M19.90 Unspecified osteoarthritis, unspecified site; K21.9 Gastro-esophageal reflux disease without esophagitis; F31.9 Bipolar disorder, unspecified; B19.20 Unspecified viral hepatitis C without hepatic coma
CPT/HCPCS: 36415; 80053; 82746; 83735; 85025; 96360; 96374; 96375; 99285; G0480; 80307; J2060; J2270

== ENCOUNTER 2019-04-06 11:58 | Observation (INO) | payer OTHER, MEDICARE ==
[2019-04-06] MEDS ORDERED: XYLOCAINE 1% HCL 20 ML MDV IJ ONE (11:59)
--- NOTE | 2019-04-06 12:34 | ERPHSYRPT ---
- History of Present Illness Time Seen by Provider: 04/06/19 12:24 Source: patient Exam Limitations: no limitations Physician History: 68-year-old white male with history of glaucoma, redness, high blood pressure, peripheral vascular disease, diabetes type 2, arthritis, cirrhosis Patient states she's been short of breath for 2 weeks he states that this has been worse since last night he apparently has been seen by his physician [facility] yesterday and told he had fluid on the right side of his lung he states he occasionally gets fluid in his lungs and he goes to the [facility] in a drain in his. He denies any chest pain he does have some pain in his shoulders but she's had for several days. Past medical history includes glaucoma coronary, high blood pressure, peripheral vascular disease, diabetes type 2, arthritis, cirrhosis, GERD, hepatitis, hernia, liver cancer, anxiety, bipolar depression, hepatitis C, atrial fibrillation patient has had a suicide attempt in the past. Past surgical history includes amputation of fourth and fifth toes on the left fifth toe on her right, appendectomy, Timing/Duration: other (short of breath for a week worse since last night) Activities at Onset: none Severity of Dyspnea-Max: moderate Severity of Dyspnea-Current: moderate Possible Cause: frequent episodes Modifying Factors: Improves With: nothing Associated Symptoms: constant, edema, ankle swelling, No intermittent, No anxiety, No cough, No chest pain/discomfort, No fever, No insomnia, No loss of appetite, No lightheadedness, No wheezing, No weakness, No chills, No hemoptysis , No calf pain, No dizziness, No heaviness, No heart racing, No lightheadedness , No leg swelling, No muscle spasms feet, No muscle spasms hands, No painful breathing, No productive cough, No sweating, No tightness, No tingling face International travel in last 2 weeks: No Allergies/Adverse Reactions: duloxetine [From Cymbalta] Allergy (Verified 04/06/19 12:18) pregabalin [From Lyrica] Allergy (Verified 04/06/19 12:18) Home Medications: Insulin Glargine [Lantus Insulin] 50 unit SQ QHS 11/16/13 [History] Insulin Aspart [NovoLOG Insulin] 0 unit SQ UD PRN 05/20/16 [History] Metoprolol Tartrate 25 mg [Lopressor 25MG Tab] 12.5 mg PO BID 08/19/16 [ History] Folic Acid 1 mg [Folate 1 mg] 1 mg PO DAILY 04/06/19 [History] Multivitamin [Multivitamins] 1 each PO DAILY 04/06/19 [History] Hx Tetanus, Diphtheria Vaccination/Date Given: Yes Hx Influenza Vaccination/Date Given: Yes Hx Pneumococcal Vaccination/Date Given: Yes - Review of Systems Constitutional: No Fever, No Chills Eyes: No Symptoms Ears, Nose, & Throat: No Symptoms Respiratory: Dyspnea Cardiac: Edema, No Chest Pain, No Palpitations, No Syncope, No Orthopnea, No PND Abdominal/Gastrointestinal: No Abdominal Pain, No Nausea, No Vomiting, No Diarrhea Genitourinary Symptoms: No Dysuria Musculoskeletal: No Back Pain, No Neck Pain Skin: No Rash Neurological: No Dizziness, No Focal Weakness, No Sensory Changes Psychological: No Symptoms Endocrine: No Symptoms All Other Systems: Reviewed and Negative - Past Medical History Pertinent Past Medical History: Yes Neurological History: No Pertinent History ENT History: Glaucoma Cardiac History: Arrhythmia, Hypertension, Peripheral Vascular Disease Respiratory History: No Pertinent History Endocrine Medical History: Diabetes Type II Musculoskeletal History: Arthritis GI Medical History: Cirrhosis, GERD, Hepatitis, Hernia, Liver Cancer History: No Pertinent History Psycho-Social History: Anxiety, Bipolar, Depression, Other Male Reproductive Disorders: No Pertinent History Other Medical History: hepatitis C, AFib, has tried to commit suicide in the past - Past Surgical History Past Surgical History: Yes Neuro Surgical History: No Pertinent History Cardiac: No Pertinent History Respiratory: No Pertinent History Gastrointestinal: Hernia Repair Genitourinary: No Pertinent History Musculoskeletal: Amputation Male Surgical History: No Pertinent History Other Surgical History: 4th and 5th toe amputated off of left foot. 5th toe amputated off of the right foot - Social History Smoking Status: Former smoker How long have you smoked: 15 Exposure to second hand smoke: Yes Drug Use: none Patient Lives Alone: Yes - Nursing Vital Signs Nursing Vital Signs: Initial Vital Signs Temperature 97.8 F 04/06/19 12:06 Pulse Rate 85 04/06/19 12:06 Respiratory Rate 22 04/06/19 12:06 Blood Pressure 135/88 04/06/19 12:06 O2 Sat by Pulse Oximetry 90 L 04/06/19 12:06 Pain Scale Pain Intensity 7 - Physical Exam General Appearance: mild distress, alert Eye Exam: PERRL/EOMI Ears, Nose, Throat Exam: hearing grossly normal, normal ENT inspection, normal pharynx, No abnormal TM (R), No abnormal TM (L), No sinus pain/drainage, No hearing decreased Neck Exam: normal inspection, supple Respiratory Exam: airway intact, diminished breath sounds (breath sounds diminished on the right), No normal breath sounds Cardiovascular/Chest Exam: normal heart sounds, regular rate/rhythm Abdominal/Gastrointestinal Exam: soft, No tenderness, No distention, No mass Extremity Exam: non-tender, normal range of motion, normal inspection, no calf tenderness, no pedal edema Peripheral Pulses Exam: dorsalis-pedis (R): 2+, dorsalis-pedis (L): 2+ Neurologic Exam: alert, oriented x 3, cooperative, batch maker II-XII nml as tested, sensation nml, No motor deficits Skin Exam: normal color, warm, No dry SpO2 Interpretation: normal - Course Nursing assessment & vital signs reviewed: Yes EKG Interpreted by Me: RATE, A-fib, NORMAL AXIS (EKG: Atrial fibrillation, 82 beats per minute, normal axis, no acute ST or T wave changes noted compared to October 22, 2017) - Radiology Exams Chest X-ray Interpretation: Discussed w/ radiologist (chest x-ray: Impression: New right effusion/atelectasis occupying more than 50% of the right hemithorax. Remaining heart and lungs unremarkable with incidental calcified granuloma. Bony thorax intact) - CT Exams Chest CT Interpretation: Discussed w/radiologist (CT chest: Impression: 1. Pulmonary embolism evaluation limited by respiratory artifact no large central pulmonary embolus 2. Large right effusion with compressive atelectasis and mediastinal shift. 3. And completely visualize right lobe hepatic mass present known malignancy. 4. Cirrhotic liver with and completely visualized perihepatic fluid and splenomegaly. 5. Incidental bilateral gynecomastia) Ordered Tests: Active Orders 24 hr Category Date Time Status EKG-ER Only STAT Care 04/06/19 12:28 Active IV Insertion STAT Care 04/06/19 12:28 Active Pulse Oximetry (ED) STAT Care 04/06/19 12:28 Active CHEST 1 VIEW (PORTABLE) Routine Exams 04/06/19 15:08 Completed CHEST 1 VIEW (PORTABLE) Stat Exams 04/06/19 12:40 Completed CHEST WITH CONTRAST [CT] Stat Exams 04/06/19 13:33 Completed THORACENTESIS [US] Stat Exams 04/06/19 15:16 Completed BLOOD CULTURE Stat Lab 04/06/19 12:40 Received CBC W DIFF Stat Lab 04/06/19 12:40 Completed CMP Stat Lab 04/06/19 12:40 Completed CULTURE,URINE Stat Lab 04/06/19 14:40 Received D-DIMER QUANTITATION Stat Lab 04/06/19 12:40 Completed NT PRO BNP Stat Lab 04/06/19 12:40 Completed TROPONIN Q3H Lab 04/06/19 12:40 Completed TROPONIN Q3H Lab 04/06/19 15:30 Ordered TROPONIN Q3H Lab 04/06/19 18:30 Ordered TROPONIN Q3H Lab 04/06/19 21:30 Ordered TROPONIN Q3H Lab 04/07/19 00:30 Ordered UA W/RFX UR CULTURE Stat Lab 04/06/19 14:40 Completed VENOUS BLOOD GAS Stat Lab 04/06/19 12:28 Completed Peak Expiratory Flow Rate ONCE RT 04/06/19 14:08 Completed Respiratory Therapy Assessment DAILY RT 04/06/19 14:07 Completed Medication Summary Discontinued Medications Generic Name Dose Route Start Last Admin Trade Name Freq PRN Reason Stop Dose Admin Albuterol/Ipratropium 3 ml 04/06/19 12:51 04/06/19 12:55 Duoneb 0.5-3 Mg/3 Ml Neb IH 04/06/19 12:52 3 ml STAT ONE Administration Albuterol/Ipratropium Confirm 04/06/19 12:51 Duoneb 0.5-3 Mg/3 Ml Neb Administered 04/06/19 12:52 Dose 3 ml IH .STK-MED ONE Furosemide 40 mg 04/06/19 13:50 04/06/19 14:09 Lasix 40 Mg/4 Ml IV 04/06/19 13:51 40 mg STAT ONE Administration Furosemide Confirm 04/06/19 14:07 Lasix 40 Mg/4 Ml Administered 04/06/19 14:08 Dose 40 mg .ROUTE .STK-MED ONE Lidocaine HCl 20 ml 04/06/19 11:59 Xylocaine 1% Hcl 20 Ml Mdv IJ 04/06/19 12:00 .STK-MED ONE Morphine Sulfate 4 mg 04/06/19 16:29 Morphine Sulfate 4 Mg Inj IV 04/06/19 16:30 STAT ONE Ondansetron HCl 4 mg 04/06/19 16:29 Zofran 4 Mg/2 Ml Vial IV 04/06/19 16:30 STAT ONE Lab/Rad Data: Laboratory Result Diagrams 04/06/19 12:40 04/06/19 12:40 Laboratory Results 04/06/19 04/06/19 04/06/19 Range/Units 14:40 12:40 12:40 WBC (4.0-10.5) K/mm3 RBC (4.1-5.6) M/mm3 Hgb (12.5-18.0) gm/dl Hct (42-50) % MCV (78-100) fl MCH (26-32) pg MCHC (32-36) g/dl RDW (11.5-14.0) % Plt Count (150-450) K/mm3 MPV (6-9.5) fl Gran % (36.0-66.0) % Eos # (Auto) (0-0.5) Absolute Lymphs (auto) (1.0-4.6) Absolute Monos (auto) (0.0-1.3) Lymphocytes % (24.0-44.0) % Monocytes % (0.0-12.0) % Eosinophils % (0.00-5.0) % Basophils % (0.0-0.4) % Absolute Granulocytes (1.4-6.9) Basophils # (0-0.4) D-Dimer 1779 H* (215-500) ng/mL pO2/FiO2 Ratio % VBG pH (7.32-7.42) VBG pCO2 at Pat Temp (42-55) mm/Hg VBG pO2 at Pat Temp (25-40) mm/Hg VBG HCO3 (22-28) meq/L VBG O2 Sat (Jeff) (95-100) VBG Base Excess (-2.0-2.0) VBG Hemoglobin VBG Carboxyhemoglobin (0.0-6.9) % T HGB POC Potassium (3.5-5.1) Sodium (137-145) mmol/L Potassium (3.5-5.1) mmol/L Chloride (98-107) mmol/L Carbon Dioxide (22-30) mmol/L Anion Gap (5-15) MEQ/L BUN (9-20) mg/dL Creatinine (0.66-1.25) mg/dL Estimated GFR ML/MIN Glucose (74-106) mg/dL Calcium (8.4-10.2) mg/dL Total Bilirubin (0.2-1.3) mg/dL AST (17-59) U/L ALT (0-50) U/L Alkaline Phosphatase (38-126) U/L Troponin I 0.015 (0.000-0.034) ng/mL NT-Pro-B Natriuret Pep (0-900) pg/mL Serum Total Protein (6.3-8.2) g/dL Albumin (3.5-5.0) g/dL Urine Color YELLOW (YELLOW) Urine Appearance CLEAR (CLEAR) Urine pH 5.0 (5-6) Ur Specific Spencer 1.025 (1.005-1.025) Urine Protein 30 (Negative) Urine Ketones NEGATIVE (NEGATIVE) Urine Blood MODERATE (0-5) Alvarado/ul Urine Nitrite NEGATIVE (NEGATIVE) Urine Bilirubin NEGATIVE (NEGATIVE) Urine Urobilinogen 2 (0-1) mg/dL Ur Leukocyte Esterase NEGATIVE (NEGATIVE) Urine WBC (Auto) 3-5 (0-5) /HPF Urine RBC (Auto) 6-10 (0-2) /HPF U Hyaline Cast (Auto) 0-2 (0-2) /LPF U Epithel Cells (Auto) NONE (FEW) /HPF Urine Bacteria (Auto) NONE (NEGATIVE) /HPF Urine Mucus (Auto) SLIGHT (NEGATIVE) /HPF Urine Culture Reflexed YES (NO) Urine Glucose 50 (NEGATIVE) mg/dL Slides for Path Review 04/06/19 04/06/19 04/06/19 Range/Units 12:40 12:40 12:28 WBC 4.0 (4.0-10.5) K/mm3 RBC 4.12 (4.1-5.6) M/mm3 Hgb 13.3 (12.5-18.0) gm/dl Hct 40.6 L (42-50) % MCV 98.5 (78-100) fl MCH 32.3 H (26-32) pg MCHC 32.8 (32-36) g/dl RDW 15.8 H (11.5-14.0) % Plt Count 41 L (150-450) K/mm3 MPV 12.7 H (6-9.5) fl Gran % 66.9 H (36.0-66.0) % Eos # (Auto) 0.16 (0-0.5) Absolute Lymphs (auto) 0.71 L (1.0-4.6) Absolute Monos (auto) 0.43 (0.0-1.3) Lymphocytes % 17.8 L (24.0-44.0) % Monocytes % 10.8 (0.0-12.0) % Eosinophils % 4.0 (0.00-5.0) % Basophils % 0.5 (0.0-0.4) % Absolute Granulocytes 2.66 (1.4-6.9) Basophils # 0.02 (0-0.4) D-Dimer (215-500) ng/mL pO2/FiO2 Ratio 28.0 % VBG pH 7.33 (7.32-7.42) VBG pCO2 at Pat Temp 57 H (42-55) mm/Hg VBG pO2 at Pat Temp 63 H (25-40) mm/Hg VBG HCO3 30.1 H* (22-28) meq/L VBG O2 Sat (Jeff) 93.6 L (95-100) VBG Base Excess 2.8 H (-2.0-2.0) VBG Hemoglobin 13.4 VBG Carboxyhemoglobin 4.7 (0.0-6.9) % T HGB POC Potassium 4.0 (3.5-5.1) Sodium 140 (137-145) mmol/L Potassium 3.7 (3.5-5.1) mmol/L Chloride 103 (98-107) mmol/L Carbon Dioxide 29 (22-30) mmol/L Anion Gap 11.8 (5-15) MEQ/L BUN 17 (9-20) mg/dL Creatinine 0.56 L (0.66-1.25) mg/dL Estimated GFR > 60.0 ML/MIN Glucose 203 H (74-106) mg/dL Calcium 8.9 (8.4-10.2) mg/dL Total Bilirubin 1.00 (0.2-1.3) mg/dL AST 69 H (17-59) U/L ALT 17 (0-50) U/L Alkaline Phosphatase 155 H (38-126) U/L Troponin I (0.000-0.034) ng/mL NT-Pro-B Natriuret Pep 353 (0-900) pg/mL Serum Total Protein 7.3 (6.3-8.2) g/dL Albumin 3.6 (3.5-5.0) g/dL Urine Color (YELLOW) Urine Appearance (CLEAR) Urine pH (5-6) Ur Specific Spencer (1.005-1.025) Urine Protein (Negative) Urine Ketones (NEGATIVE) Urine Blood (0-5) Alvarado/ul Urine Nitrite (NEGATIVE) Urine Bilirubin (NEGATIVE) Urine Urobilinogen (0-1) mg/dL Ur Leukocyte Esterase (NEGATIVE) Urine WBC (Auto) (0-5) /HPF Urine RBC (Auto) (0-2) /HPF U Hyaline Cast (Auto) (0-2) /LPF U Epithel Cells (Auto) (FEW) /HPF Urine Bacteria (Auto) (NEGATIVE) /HPF Urine Mucus (Auto) (NEGATIVE) /HPF Urine Culture Reflexed (NO) Urine Glucose (NEGATIVE) mg/dL Slides for Path Review YES - Progress Progress: improved Air Movement: fair Progress Note: 04/06/19 15:52 68-year-old white male with history of liver cancer and history of recurrent effusions in his lungs who has had pleural fluid removed in the past arrives with complaint of shortness of breath for a week which has been much worse yesterday since yesterday Patient was x-ray of the chest which is remarkable for a new large right effusion/atelectasis occupying more and 50% of the right hemithorax Patient had a CT secondary to elevated d-dimer which was remarkable for limited evaluation for pulmonary embolism secondary to respiratory artifact no large central pulmonary embolus, large right effusion with compressive atelectasis and mediastinal shift. 3. Incompletely visualized right lobe hepatic mass presumed known malignancy. Slight liver with incompletely visualized. Pelvic fluid and splenomegaly. 5 incidental bilateral gynecomastia patient was given duo neb treatment as well as Lasix 40 mg IV he continued to complain of shortness of breath I discussed the patient with Dr. Lion in radiology he was able to perform her right chest thoracentesis using ultrasound guidance for diagnostic and therapeutic purposes and approximately 4 L of fluid was aspirated Patient had a post procedure chest x-ray which was negative for pneumothorax. The patient's large right effusion/atelectasis was improved with small residual near the base Remaining heart and lungs unremarkable is incidental calcified granulomas Patient's blood gases on arrival pH 7.33 PCO2 is 57 this was a venous sample troponin was 0.015 Chemistry sodium 140 potassium 3.7 chloride 103 bicarbonate 29 BUN 17 creatinine 0.56 glucose 203 CBC white blood cell 4.0 hemoglobin 13.3 hematocrit 40.6 platelets were 41,000 Patient's d-dimer 1779 EKG atrial fibrillation 82 beats per minute normal axis no acute ST or T wave changes The patient states he doesn't feel a whole lot better after having the fluid pulled off his lungs however he is breathing well saturations are improved and he has increased air movement on auscultation. I've discussed the patient's case briefly with Dr. Zhou she states she would prefer that the patient be referred to the [facility]. Will go ahead and contact them for possible transfer. Impression shortness of breath. , Pleural effusion. History of liver cancer. 04/06/19 15:59 04/06/19 16:26 [facility] was contacted by the patient's nurse unfortunately the beds are full at the [facility] and none are available therefore I contacted Dr. Zhou. Will place patient on observation telemetry provide morphine for pain control oxygen duo nebs as needed. impression shortness of breath, pleural effusion - Departure Departure Disposition: Observation Clinical Impression: Shortness of breath, Pleural effusion Condition: Fair Critical Care Time: No Referrals: ARNAV ZHOU [Primary Care Provider] -
[2019-04-06 12:49] LABS: VBG BASE EXCESS 2.8 (-2.0-2.0); VBG CARBOXYHEMOGLOBIN 4.7 % T HGB (0.0-6.9); VBG HCO3- 30.1 meq/L (22-28); VBG HEMOGLOBIN 13.4; VBG O2 SATURATION 93.6 (95-100); VBG pH 7.33 (7.32-7.42)
[2019-04-06] MEDS ORDERED: DUONEB 0.5-3 MG/3 ml Neb IH ONE ×2 (12:51)
--- NOTE | 2019-04-06 12:54 | XRAY ---
Indication: Short of breath. History liver cancer. Comparison: October 19, 2017. Portable chest demonstrates new large right effusion/atelectasis occupying more than 50% of the right hemithorax. Remaining heart and lungs unremarkable again with incidental calcified granulomas. Bony thorax intact.
[2019-04-06 13:09] LABS: BASOPHIL % 0.5 % (0.0-0.4); Basophil (Absolute #) 0.02 (0-0.4); Eosinophil (Absolute #) 0.16 (0-0.5); Granulocyte Absolute (ANC) 2.66 (1.4-6.9); Granulocytes % 66.9 % (36.0-66.0); Hematocrit 40.6 % (42-50); Hemoglobin 13.3 gm/dl (12.5-18.0); Lymphocyte (Absolute #) 0.71 (1.0-4.6); Lymphocytes % 17.8 % (24.0-44.0); Mean Cell Volume 98.5 fl (78-100); Mean Corpuscular Hemoglobin 32.3 pg (26-32); Mean Corpuscular Hgb Concent. 32.8 g/dl (32-36); Mean Platelet Volume 12.7 fl (6-9.5); Monocyte (Absolute #) 0.43 (0.0-1.3); Monocytes % 10.8 % (0.0-12.0); Platelet Count 41 K/mm3 (150-450); Red Blood Count 4.12 M/mm3 (4.1-5.6); Red Cell Distribution Width 15.8 % (11.5-14.0)
[2019-04-06 13:29] LABS: ALBUMIN 3.6 g/dL (3.5-5.0); ALKALINE PHOSPHATASE 155 U/L (38-126); ANION GAP 11.8 MEQ/L (5-15); BLOOD UREA NITROGEN 17 mg/dL (9-20); CHLORIDE 103 mmol/L (98-107); Calcium 8.9 mg/dL (8.4-10.2); Carbon Dioxide 29 mmol/L (22-30); Creatinine 1 0.56 mg/dL (0.66-1.25); Glucose 203 mg/dL (74-106); NT PRO BNP 353 pg/mL (0-900); Potassium 3.7 mmol/L (3.5-5.1); SGOT/AST 69 U/L (17-59); SGPT/ALT 17 U/L (0-50); SODIUM 140 mmol/L (137-145); Total Protein 7.3 g/dL (6.3-8.2)
[2019-04-06] MEDS ORDERED: Lasix 40 MG/4 ML IV ONE (13:50)
[2019-04-06] MEDS ORDERED: Lasix 40 MG/4 ML ONE (14:07)
[2019-04-06 14:22] LABS: Slide Review 1 YES
--- NOTE | 2019-04-06 14:36 | XRAY ---
Indication: Short of breath. Elevated d-dimer. History liver carcinoma. Multiple contiguous axial images obtained through the chest using 100 cc Isovue 370 contrast and PE protocol. Comparison: None There is satisfactory opacification of the pulmonary arteries. However mild respiratory motion artifact limits evaluation for pulmonary embolus. No central pulmonary embolus. Heart is not enlarged. Aorta is mildly arteriosclerotic without aneurysm/dissection. Left perihilar calcified nodes. No pathologic mediastinal/hilar lymphadenopathy. Large right effusion occupies at least 75% of the right hemithorax. There is also compressive right lower lobe and lesser degree right middle lobe atelectasis. Heart and mediastinal structures slightly shifted to the left. Left lung demonstrates small lingula calcified granuloma. Bony thorax intact with minimal degenerative changes throughout the spine. Incidental bilateral gynecomastia. Limited upper abdomen demonstrates cirrhotic liver. Also incompletely visualized right lobe hepatic mass measuring at least 6.5 x 7.7 cm presumed known malignancy. Also partially visualized perihepatic fluid inferiorly and 15.3 cm splenomegaly. Impression: 1. Pulmonary embolus evaluation limited by respiration artifact. No large central pulmonary embolus. 2. Large right effusion with compressive atelectasis and mediastinal shift. 3. Incompletely visualized right lobe hepatic mass presumed known malignancy. 4. Cirrhotic liver with incompletely visualized perihepatic fluid and splenomegaly. 5. Incidental bilateral gynecomastia. CT DI 23.68
--- NOTE | 2019-04-06 15:19 | XRAY ---
Indication: Right pleural effusion. Thoracentesis for therapeutic and diagnostic purpose. Informed consent obtained. Initial sonographic imaging of the right lower back was performed for localization. Skin was prepped and draped in sterile fashion. 1% lidocaine plain used for local anesthesia. Tiny skin incision made. Then a 5 [employer] thoracentesis catheter with introducer needle was inserted into the right hemithorax. Small flash of effusion seen in the syringe at which point the outer catheter was advanced and the inner needle removed. Catheter was then connected to a Vacutainer. Approximately 4 L tyler colored transudative fluid was aspirated. Fluid was sent to laboratory for analysis. Repeat sonogram demonstrates markedly diminished effusion with small residual. Hemostasis achieved using digital pressure over the puncture site. Small Band-Aid applied. Postoperative instructions and orders given. Impression: Technically successful right chest thoracentesis using ultrasound guidance for diagnostic and therapeutic purpose. Approximately 4 L aspirated. Postprocedure chest radiograph pending.
--- NOTE | 2019-04-06 15:27 | XRAY ---
Indication: Status post right thoracentesis. Comparison: Taken earlier in the day. Portable chest obtained in expiration negative for pneumothorax. Previous large right effusion/atelectasis improved with small residual near the base. Remaining heart and lungs unremarkable again with incidental calcified granulomas.
[2019-04-06 16:02] LABS: Appearance CLEAR (CLEAR); Bilirubin NEGATIVE (NEGATIVE); Blood MODERATE Ery/ul (0-5); Glucose 50 mg/dL (NEGATIVE); Hyaline Casts 0-2 /LPF (0-2); Ketones NEGATIVE (NEGATIVE); Leukocyte Esterase NEGATIVE (NEGATIVE); Mucus SLIGHT /HPF (NEGATIVE); Nitrite NEGATIVE (NEGATIVE); Protein,Urine Dip 30 (Negative); Specific Gravity 1.025 (1.005-1.025); Urobilinogen 2 mg/dL (0-1)
[2019-04-06] MEDS ORDERED: Zofran 4 MG/2 ML VIAL IV ONE (16:29)
[2019-04-06] MEDS ORDERED: MORPHINE SULFATE 4 MG INJ IV ONE (16:29)
[2019-04-06] MEDS ORDERED: Zofran 4 MG/2 ML VIAL ONE (17:06)
[2019-04-06] MEDS ORDERED: MORPHINE SULFATE 4 MG INJ ONE (17:07)
[2019-04-06] MEDS ORDERED: NovoLOG Insulin SQ PRN (17:33)
[2019-04-06] MEDS ORDERED: DUONEB 0.5-3 MG/3 ml Neb IH PRN (17:33)
--- NOTE | 2019-04-06 19:09 | PCM.HP ---
History of Present Illness - Chief Complaint Chief Complaint: SOB pleural effusion History of Present Illness: is a 68 year old male pt of the [facility], who has seen my in office, with liver ca, alcoholism, afib, HTM, and DM who was admitted for a tap of his pleural fluid. [facility] and was set up for a tap on 04/16/19, but the pt was having R sided CP (05/08) and SOB, had to sleep sitting up last night, so he came to the ER today. Dr. Lion pulled 4L of fluid from his chest cavity. Pt is still having pain, now 8-, but is feeling better evidenced by the fact that he ate a large supper ( previously not feeling well enough to eat). Mr. Olguin was dx with liver ca about 3 yrs ago and has had chemotherapy and radiation at the [facility]. He thinks his liver tests recently have come back good. He endorses a possible history of esophageal varices but does not sound as though he's had a rupture. Pt states he last drank alcohol about 1 mo ago. - Review of Systems Respiratory: Cough (prod some sputum) Cardiac: Chest Pain, Edema Abdominal/Gastrointestinal: Appetite Changes Musculoskeletal: Arthralgias (R shoulder pain rad to neck and L shoulder) Psychological: No Suicidal Ideations, No Homicidal Ideations All Other Systems: Reviewed and Negative Medications & Allergies Home Medications: Home Medication List Insulin Glargine [Lantus Insulin] 50 unit SQ QHS 11/16/13 [History Confirmed 04/06/19] Insulin Aspart [NovoLOG Insulin] 0 unit SQ UD PRN 05/20/16 [History Confirmed 04/06/19] Metoprolol Tartrate 25 mg [Lopressor 25MG Tab] 12.5 mg PO BID 08/19/16 [ History Confirmed 04/06/19] Folic Acid 1 mg [Folate 1 mg] 1 mg PO DAILY 04/06/19 [History Confirmed ] Multivitamin [Multivitamins] 1 each PO DAILY 04/06/19 [History Confirmed ] Allergies/Adverse Reactions: Allergies Allergy/AdvReac Type Severity Reaction Status Date / Time pregabalin [From Lyrica] Allergy Severe Verified 04/06/19 17:42 duloxetine [From Cymbalta] Allergy Rash Verified 04/06/19 17:42 - Past Medical History Past Medical History: Yes Neurological History: No Pertinent History ENT History: Glaucoma Cardiac History: Arrhythmia, Hypertension, Peripheral Vascular Disease Respiratory History: No Pertinent History Endocrine Medical History: Diabetes Type II Musculoskelatal History: Arthritis GI Medical History: Cirrhosis, GERD, Hepatitis, Hernia, Liver Cancer History: No Pertinent History Pyscho-Social History: Anxiety, Bipolar, Depression, Other Male Reproductive Disorders: No Pertinent History Comment: hepatitis C (treated), AFib, has tried to commit suicide in the past. Prior drug and ETOH use (no longer uses) - Past Surgical History Past Surgical History: Yes Neuro Surgical History: No Pertinent History Cardiac History: No Pertinent History Respiratory Surgery: No Pertinent History GI Surgical History: Hernia Repair Genitourinary Surgical Hx: No Pertinent History Musculskeletal Surgical Hx: Amputation Male Surgical History: No Pertinent History Other Surgical History: 4th and 5th toe amputated off of left foot. 5th toe amputated off of the right foot. fluid drained from lungs 4 times in the last 3 months. fluid drained from abd once in the last 3 months - Social History Smoking Status: Former smoker How long have you smoked: 20 years Exposure to second hand smoke: Yes Alcohol: None, Occasionally Drug Use: none - Physical Exam Vital Signs: Vital Signs - 24 hr Temp Pulse Resp BP Pulse Ox 04/06/19 17:59 90 20 171/84 95 04/06/19 17:54 91 H 20 96 04/06/19 17:53 96 04/06/19 17:28 98.7 F 96 H 20 171/84 96 04/06/19 17:01 98.2 F 80 16 134/99 97 04/06/19 16:08 77 20 157/97 97 04/06/19 15:00 24 155/101 96 04/06/19 14:08 99 04/06/19 13:37 156/94 04/06/19 12:42 90 L 04/06/19 12:06 97.8 F 85 22 135/88 90 L Oxygen-Last 24 hours O2 Percentage 2 Liters = 28% O2 Percentage 2 Liters = 28% O2 Percentage 3 Liters = 32% O2 Percentage 3 Liters = 32% General Appearance: no apparent distress, alert, other (somewhat disheveled) Neurologic Exam: cooperative, normal mood/affect Eye Exam: eyes nml inspection Ears, Nose, Throat Exam: moist mucous membranes Neck Exam: normal inspection, non-tender, No lymphadenopathy Respiratory Exam: diminished breath sounds (minimal sounds in RLL) Cardiovascular Exam: normal heart sounds, irregular, No murmur Gastrointestinal/Abdomen Exam: soft, normal bowel sounds, No tenderness, No distention, No mass, No guarding, No rebound Extremity Exam: pedal edema (1+ LE edema bilat), No normal inspection (bilat feet with digit amputations. no lesions.) Skin Exam: normal color, warm, dry, No rash Results - Labs Lab/Micro Results: Lab Results-Last 24 Hours 04/06/19 04/06/19 04/06/19 Range/Units 12:28 12:40 12:40 WBC 4.0 (4.0-10.5) K/mm3 RBC 4.12 (4.1-5.6) M/mm3 Hgb 13.3 (12.5-18.0) gm/dl Hct 40.6 L (42-50) % MCV 98.5 (78-100) fl MCH 32.3 H (26-32) pg MCHC 32.8 (32-36) g/dl RDW 15.8 H (11.5-14.0) % Plt Count 41 L (150-450) K/mm3 MPV 12.7 H (6-9.5) fl Gran % 66.9 H (36.0-66.0) % Eos # (Auto) 0.16 (0-0.5) Absolute Lymphs (auto) 0.71 L (1.0-4.6) Absolute Monos (auto) 0.43 (0.0-1.3) Lymphocytes % 17.8 L (24.0-44.0) % Monocytes % 10.8 (0.0-12.0) % Eosinophils % 4.0 (0.00-5.0) % Basophils % 0.5 (0.0-0.4) % Absolute Granulocytes 2.66 (1.4-6.9) Basophils # 0.02 (0-0.4) D-Dimer (215-500) ng/mL pO2/FiO2 Ratio 28.0 % VBG pH 7.33 (7.32-7.42) VBG pCO2 at Pat Temp 57 H (42-55) mm/Hg VBG pO2 at Pat Temp 63 H (25-40) mm/Hg VBG HCO3 30.1 H* (22-28) meq/L VBG O2 Sat (Jeff) 93.6 L (95-100) VBG Base Excess 2.8 H (-2.0-2.0) VBG Hemoglobin 13.4 VBG Carboxyhemoglobin 4.7 (0.0-6.9) % T HGB POC Potassium 4.0 (3.5-5.1) Sodium 140 (137-145) mmol/L Potassium 3.7 (3.5-5.1) mmol/L Chloride 103 (98-107) mmol/L Carbon Dioxide 29 (22-30) mmol/L Anion Gap 11.8 (5-15) MEQ/L BUN 17 (9-20) mg/dL Creatinine 0.56 L (0.66-1.25) mg/dL Estimated GFR > 60.0 ML/MIN Glucose 203 H (74-106) mg/dL Calcium 8.9 (8.4-10.2) mg/dL Total Bilirubin 1.00 (0.2-1.3) mg/dL AST 69 H (17-59) U/L ALT 17 (0-50) U/L Alkaline Phosphatase 155 H (38-126) U/L Troponin I (0.000-0.034) ng/mL NT-Pro-B Natriuret Pep 353 (0-900) pg/mL Serum Total Protein 7.3 (6.3-8.2) g/dL Albumin 3.6 (3.5-5.0) g/dL Urine Color (YELLOW) Urine Appearance (CLEAR) Urine pH (5-6) Ur Specific [place] (1.005-1.025) Urine Protein (Negative) Urine Ketones (NEGATIVE) Urine Blood (0-5) Alvarado/ul Urine Nitrite (NEGATIVE) Urine Bilirubin (NEGATIVE) Urine Urobilinogen (0-1) mg/dL Ur Leukocyte Esterase (NEGATIVE) Urine WBC (Auto) (0-5) /HPF Urine RBC (Auto) (0-2) /HPF U Hyaline Cast (Auto) (0-2) /LPF U Epithel Cells (Auto) (FEW) /HPF Urine Bacteria (Auto) (NEGATIVE) /HPF Urine Mucus (Auto) (NEGATIVE) /HPF Urine Culture Reflexed (NO) Urine Glucose (NEGATIVE) mg/dL Slides for Path Review YES 04/06/19 04/06/19 04/06/19 Range/Units 12:40 12:40 14:40 WBC (4.0-10.5) K/mm3 RBC (4.1-5.6) M/mm3 Hgb (12.5-18.0) gm/dl Hct (42-50) % MCV (78-100) fl MCH (26-32) pg MCHC (32-36) g/dl RDW (11.5-14.0) % Plt Count (150-450) K/mm3 MPV (6-9.5) fl Gran % (36.0-66.0) % Eos # (Auto) (0-0.5) Absolute Lymphs (auto) (1.0-4.6) Absolute Monos (auto) (0.0-1.3) Lymphocytes % (24.0-44.0) % Monocytes % (0.0-12.0) % Eosinophils % (0.00-5.0) % Basophils % (0.0-0.4) % Absolute Granulocytes (1.4-6.9) Basophils # (0-0.4) D-Dimer 1779 H* (215-500) ng/mL pO2/FiO2 Ratio % VBG pH (7.32-7.42) VBG pCO2 at Pat Temp (42-55) mm/Hg VBG pO2 at Pat Temp (25-40) mm/Hg VBG HCO3 (22-28) meq/L VBG O2 Sat (Jeff) (95-100) VBG Base Excess (-2.0-2.0) VBG Hemoglobin VBG Carboxyhemoglobin (0.0-6.9) % T HGB POC Potassium (3.5-5.1) Sodium (137-145) mmol/L Potassium (3.5-5.1) mmol/L Chloride (98-107) mmol/L Carbon Dioxide (22-30) mmol/L Anion Gap (5-15) MEQ/L BUN (9-20) mg/dL Creatinine (0.66-1.25) mg/dL Estimated GFR ML/MIN Glucose (74-106) mg/dL Calcium (8.4-10.2) mg/dL Total Bilirubin (0.2-1.3) mg/dL AST (17-59) U/L ALT (0-50) U/L Alkaline Phosphatase (38-126) U/L Troponin I 0.015 (0.000-0.034) ng/mL NT-Pro-B Natriuret Pep (0-900) pg/mL Serum Total Protein (6.3-8.2) g/dL Albumin (3.5-5.0) g/dL Urine Color YELLOW (YELLOW) Urine Appearance CLEAR (CLEAR) Urine pH 5.0 (5-6) Ur Specific [place] 1.025 (1.005-1.025) Urine Protein 30 (Negative) Urine Ketones NEGATIVE (NEGATIVE) Urine Blood MODERATE (0-5) Alvarado/ul Urine Nitrite NEGATIVE (NEGATIVE) Urine Bilirubin NEGATIVE (NEGATIVE) Urine Urobilinogen 2 (0-1) mg/dL Ur Leukocyte Esterase NEGATIVE (NEGATIVE) Urine WBC (Auto) 3-5 (0-5) /HPF Urine RBC (Auto) 6-10 (0-2) /HPF U Hyaline Cast (Auto) 0-2 (0-2) /LPF U Epithel Cells (Auto) NONE (FEW) /HPF Urine Bacteria (Auto) NONE (NEGATIVE) /HPF Urine Mucus (Auto) SLIGHT (NEGATIVE) /HPF Urine Culture Reflexed YES (NO) Urine Glucose 50 (NEGATIVE) mg/dL Slides for Path Review 04/06/19 Range/Units 16:10 WBC (4.0-10.5) K/mm3 RBC (4.1-5.6) M/mm3 Hgb (12.5-18.0) gm/dl Hct (42-50) % MCV (78-100) fl MCH (26-32) pg MCHC (32-36) g/dl RDW (11.5-14.0) % Plt Count (150-450) K/mm3 MPV (6-9.5) fl Gran % (36.0-66.0) % Eos # (Auto) (0-0.5) Absolute Lymphs (auto) (1.0-4.6) Absolute Monos (auto) (0.0-1.3) Lymphocytes % (24.0-44.0) % Monocytes % (0.0-12.0) % Eosinophils % (0.00-5.0) % Basophils % (0.0-0.4) % Absolute Granulocytes (1.4-6.9) Basophils # (0-0.4) D-Dimer (215-500) ng/mL pO2/FiO2 Ratio % VBG pH (7.32-7.42) VBG pCO2 at Pat Temp (42-55) mm/Hg VBG pO2 at Pat Temp (25-40) mm/Hg VBG HCO3 (22-28) meq/L VBG O2 Sat (Jeff) (95-100) VBG Base Excess (-2.0-2.0) VBG Hemoglobin VBG Carboxyhemoglobin (0.0-6.9) % T HGB POC Potassium (3.5-5.1) Sodium (137-145) mmol/L Potassium (3.5-5.1) mmol/L Chloride (98-107) mmol/L Carbon Dioxide (22-30) mmol/L Anion Gap (5-15) MEQ/L BUN (9-20) mg/dL Creatinine (0.66-1.25) mg/dL Estimated GFR ML/MIN Glucose (74-106) mg/dL Calcium (8.4-10.2) mg/dL Total Bilirubin (0.2-1.3) mg/dL AST (17-59) U/L ALT (0-50) U/L Alkaline Phosphatase (38-126) U/L Troponin I 0.017 (0.000-0.034) ng/mL NT-Pro-B Natriuret Pep (0-900) pg/mL Serum Total Protein (6.3-8.2) g/dL Albumin (3.5-5.0) g/dL Urine Color (YELLOW) Urine Appearance (CLEAR) Urine pH (5-6) Ur Specific [place] (1.005-1.025) Urine Protein (Negative) Urine Ketones (NEGATIVE) Urine Blood (0-5) Alvarado/ul Urine Nitrite (NEGATIVE) Urine Bilirubin (NEGATIVE) Urine Urobilinogen (0-1) mg/dL Ur Leukocyte Esterase (NEGATIVE) Urine WBC (Auto) (0-5) /HPF Urine RBC (Auto) (0-2) /HPF U Hyaline Cast (Auto) (0-2) /LPF U Epithel Cells (Auto) (FEW) /HPF Urine Bacteria (Auto) (NEGATIVE) /HPF Urine Mucus (Auto) (NEGATIVE) /HPF Urine Culture Reflexed (NO) Urine Glucose (NEGATIVE) mg/dL Slides for Path Review - Radiology Impressions Radiology Exams & Impressions: Radiology Procedures Category Date Time Status CHEST 1 VIEW (PORTABLE) Routine Exams 04/06/19 15:08 Completed CHEST 1 VIEW (PORTABLE) Stat Exams 04/06/19 12:40 Completed CHEST WITH CONTRAST [CT] Stat Exams 04/06/19 13:33 Completed THORACENTESIS [US] Stat Exams 04/06/19 15:16 Completed - Other Procedures and Tests Respiratory Therapy 04/06/19 17:33 Oxygen Nasal Cannula 2 lpm 04/06/19 17:54 Respiratory Therapy Assessment DAILY Assessment/Plan (1) Pleural effusion Current Visit: Yes Status: Chronic Assessment & Plan: Has been drained apparently 4x in the past 3 mo. Expect him to start feeling better this evening. If stable x 24 h can probably send him home. Code(s): J90 - PLEURAL EFFUSION, NOT ELSEWHERE CLASSIFIED (2) Chest pain Current Visit: No Status: Acute Qualifiers: Chest pain type: unspecified Qualified Code(s): R07.9 - Chest pain, unspecified Assessment & Plan: I think just related to the fluid, troponin wnl x 2. Code(s): R07.9 - CHEST PAIN, UNSPECIFIED (3) Liver cancer Current Visit: No Status: Chronic Qualifiers: Liver malignancy type: unspecified primary liver malignancy Qualified Code( s): C22.8 - Malignant neoplasm of liver, primary, unspecified as to type Code(s): C22.9 - MALIG NEOPLASM OF LIVER, NOT SPECIFIED PRIMARY OR SEC (4) Diabetes mellitus Current Visit: No Status: Chronic Code(s): E11.9 - TYPE 2 DIABETES MELLITUS WITHOUT COMPLICATIONS (5) Atrial fibrillation Current Visit: Yes Status: Chronic Qualifiers: Atrial fibrillation type: chronic Qualified Code(s): I48.2 - Chronic atrial fibrillation Code(s): I48.91 - UNSPECIFIED ATRIAL FIBRILLATION
[2019-04-06] MEDS ORDERED: Tums EX 750 MG PO PRN (19:59)
[2019-04-06] MEDS: Lopressor 25MG Tab PO SCH (21:03)
[2019-04-06] MEDS: Zofran 4 MG/2 ML VIAL IV PRN (21:03)
[2019-04-06] MEDS: Lantus Insulin SQ SCH (21:05)
[2019-04-06] MEDS: NovoLOG Insulin SQ PRN (21:06)
[2019-04-06] MEDS: MORPHINE SULFATE 4 MG INJ IV PRN (22:05)
[2019-04-07 01:04] LABS: BASOPHIL % 0.4 % (0.0-0.4); Basophil (Absolute #) 0.02 (0-0.4); Eosinophil % 2.5 % (0.00-5.0); Eosinophil (Absolute #) 0.13 (0-0.5); Granulocyte Absolute (ANC) 3.71 (1.4-6.9); Granulocytes % 70.8 % (36.0-66.0); Hematocrit 39.4 % (42-50); Hemoglobin 12.9 gm/dl (12.5-18.0); Lymphocyte (Absolute #) 0.72 (1.0-4.6); Lymphocytes % 13.7 % (24.0-44.0); Mean Corpuscular Hgb Concent. 32.7 g/dl (32-36); Mean Platelet Volume 12.9 fl (6-9.5); Monocyte (Absolute #) 0.66 (0.0-1.3); Monocytes % 12.6 % (0.0-12.0); Platelet Count 39 K/mm3 (150-450); Red Blood Count 4.02 M/mm3 (4.1-5.6); Red Cell Distribution Width 15.7 % (11.5-14.0); White Blood Count 5.2 K/mm3 (4.0-10.5)
[2019-04-07 01:15] LABS: ALBUMIN 2.9 g/dL (3.5-5.0); ALKALINE PHOSPHATASE 124 U/L (38-126); ANION GAP 8.9 MEQ/L (5-15); BLOOD UREA NITROGEN 16 mg/dL (9-20); CHLORIDE 100 mmol/L (98-107); Calcium 8.5 mg/dL (8.4-10.2); Carbon Dioxide 32 mmol/L (22-30); Creatinine 1 0.56 mg/dL (0.66-1.25); Glucose 217 mg/dL (74-106); Potassium 3.8 mmol/L (3.5-5.1); SGOT/AST 55 U/L (17-59); SGPT/ALT 16 U/L (0-50); SODIUM 137 mmol/L (137-145); Total Protein 6.3 g/dL (6.3-8.2)
[2019-04-07 04:02] LABS: BF Color Straw; BF Mononuclear 81 %; BF Polymorphonuclear 19 %
[2019-04-07] MEDS: OXYCODONE-ACETAMINOPHEN 10-325 PO PRN ×3 (06:19→22:29)
[2019-04-07] MEDS: FOLATE 1 MG PO SCH (08:12)
[2019-04-07] MEDS: Lopressor 25MG Tab PO SCH ×2 (08:12→22:26)
[2019-04-07] MEDS: THERAGRAN MULTIVITAMIN PO SCH (08:12)
[2019-04-07] MEDS: NovoLOG Insulin SQ SCH ×3 (08:13→16:48)
[2019-04-07] MEDS: NovoLOG Insulin SQ PRN ×2 (08:14→22:37)
[2019-04-07] MEDS: Zofran 4 MG/2 ML VIAL IV PRN (08:21)
[2019-04-07] MEDS ORDERED: NON-FORMULARY ITEM (Multivitamin [Multivitamins] 1 EACH) PO SCH (10:00)
--- NOTE | 2019-04-07 11:55 | PCM.NOTE ---
Date and Time: 04/07/19 1150 Subjective Assessment: He is not feeling great today. Feels shaky and fatigued; feels that he needs help getting up to the bathroom. Chest and shoulder pain are decreased but persistent. Laura po,but having some nausea despite anti-emetics. - Review of Systems Constitutional: No Fever Neurological: Other (gen weakness) Objective Exam General Appearance: no apparent distress, alert Neurologic Exam: oriented x 3, cooperative Skin Exam: normal color, warm, dry, No rash Ears, Nose, Throat Exam: moist mucous membranes Respiratory Exam: diminished breath sounds (very diminished RLL, however some crackles audible), other (MARCELA and LLL wnl), No rhonchi, No wheezing Cardiovascular Exam: regular rate/rhythm, normal heart sounds, No murmur Gastrointestinal/Abdomen Exam: soft, normal bowel sounds, tenderness (RUQ), other (pt burping almost continually when he sits up during exam) Extremity Exam: other (tr LE edema) Back Exam: normal inspection, No rash OBJECTIVE DATA Vital Signs: Vital Signs - 24 hr Temp Pulse Resp BP Pulse Ox 04/07/19 07:45 97.6 F 86 20 137/60 97 04/07/19 07:12 73 18 96 04/07/19 03:39 97.6 F 94 H 20 149/70 96 04/06/19 23:58 82 20 98 04/06/19 20:00 97.9 F 99 H 20 148/70 93 L 04/06/19 19:57 104 H 20 94 L 04/06/19 17:59 90 20 171/84 95 04/06/19 17:54 91 H 20 96 04/06/19 17:53 96 04/06/19 17:28 98.7 F 96 H 20 171/84 96 04/06/19 17:01 98.2 F 80 16 134/99 97 04/06/19 16:08 77 20 157/97 97 04/06/19 15:00 24 155/101 96 04/06/19 14:08 99 04/06/19 13:37 156/94 04/06/19 12:42 90 L 04/06/19 12:06 97.8 F 85 22 135/88 90 L Oxygen-Last 24 hours O2 Percentage 2 Liters = 28% O2 Percentage 2 Liters = 28% O2 Percentage 3 Liters = 32% O2 Percentage 3 Liters = 32% Oxygen Flowrate (L/min)-RT 2 Oxygen Flowrate (L/min)-RT 2 Oxygen Flowrate (L/min)-RT 2 Pain Assessment - Last Documented Pain Intensity 7 Pain Scale Used 0-10 Pain Scale Intake and Output: Intake & Output 04/04/19 04/05/19 04/06/19 04/07/19 11:59 11:59 11:59 11:59 Intake Total 560 Balance 560 Weight 101.2 kg Lab Results: Accuchecks Date 04/06/19 Date 04/06/19 Time 20:30 Time 20:30 Accucheck Value: 211 Accucheck Value: 301 Accucheck Value: 301 Lab Results-Last 24 Hours 04/06/19 04/06/19 04/06/19 Range/Units 12:28 12:40 12:40 WBC 4.0 (4.0-10.5) K/mm3 RBC 4.12 (4.1-5.6) M/mm3 Hgb 13.3 (12.5-18.0) gm/dl Hct 40.6 L (42-50) % MCV 98.5 (78-100) fl MCH 32.3 H (26-32) pg MCHC 32.8 (32-36) g/dl RDW 15.8 H (11.5-14.0) % Plt Count 41 L (150-450) K/mm3 MPV 12.7 H (6-9.5) fl Gran % 66.9 H (36.0-66.0) % Eos # (Auto) 0.16 (0-0.5) Absolute Lymphs (auto) 0.71 L (1.0-4.6) Absolute Monos (auto) 0.43 (0.0-1.3) Lymphocytes % 17.8 L (24.0-44.0) % Monocytes % 10.8 (0.0-12.0) % Eosinophils % 4.0 (0.00-5.0) % Basophils % 0.5 (0.0-0.4) % Absolute Granulocytes 2.66 (1.4-6.9) Basophils # 0.02 (0-0.4) D-Dimer (215-500) ng/mL pO2/FiO2 Ratio 28.0 % VBG pH 7.33 (7.32-7.42) VBG pCO2 at Pat Temp 57 H (42-55) mm/Hg VBG pO2 at Pat Temp 63 H (25-40) mm/Hg VBG HCO3 30.1 H* (22-28) meq/L VBG O2 Sat (Jeff) 93.6 L (95-100) VBG Base Excess 2.8 H (-2.0-2.0) VBG Hemoglobin 13.4 VBG Carboxyhemoglobin 4.7 (0.0-6.9) % T HGB POC Potassium 4.0 (3.5-5.1) Sodium 140 (137-145) mmol/L Potassium 3.7 (3.5-5.1) mmol/L Chloride 103 (98-107) mmol/L Carbon Dioxide 29 (22-30) mmol/L Anion Gap 11.8 (5-15) MEQ/L BUN 17 (9-20) mg/dL Creatinine 0.56 L (0.66-1.25) mg/dL Estimated GFR > 60.0 ML/MIN Glucose 203 H (74-106) mg/dL Hemoglobin A1c (4.5-6.0) % Calcium 8.9 (8.4-10.2) mg/dL Total Bilirubin 1.00 (0.2-1.3) mg/dL AST 69 H (17-59) U/L ALT 17 (0-50) U/L Alkaline Phosphatase 155 H (38-126) U/L Troponin I (0.000-0.034) ng/mL NT-Pro-B Natriuret Pep 353 (0-900) pg/mL Serum Total Protein 7.3 (6.3-8.2) g/dL Albumin 3.6 (3.5-5.0) g/dL Urine Color (YELLOW) Urine Appearance (CLEAR) Urine pH (5-6) Ur Specific [place] (1.005-1.025) Urine Protein (Negative) Urine Ketones (NEGATIVE) Urine Blood (0-5) Alvarado/ul Urine Nitrite (NEGATIVE) Urine Bilirubin (NEGATIVE) Urine Urobilinogen (0-1) mg/dL Ur Leukocyte Esterase (NEGATIVE) Urine WBC (Auto) (0-5) /HPF Urine RBC (Auto) (0-2) /HPF U Hyaline Cast (Auto) (0-2) /LPF U Epithel Cells (Auto) (FEW) /HPF Urine Bacteria (Auto) (NEGATIVE) /HPF Urine Mucus (Auto) (NEGATIVE) /HPF Urine Culture Reflexed (NO) Urine Glucose (NEGATIVE) mg/dL Slides for Path Review YES 04/06/19 04/06/19 04/06/19 Range/Units 12:40 12:40 12:40 WBC (4.0-10.5) K/mm3 RBC (4.1-5.6) M/mm3 Hgb (12.5-18.0) gm/dl Hct (42-50) % MCV (78-100) fl MCH (26-32) pg MCHC (32-36) g/dl RDW (11.5-14.0) % Plt Count (150-450) K/mm3 MPV (6-9.5) fl Gran % (36.0-66.0) % Eos # (Auto) (0-0.5) Absolute Lymphs (auto) (1.0-4.6) Absolute Monos (auto) (0.0-1.3) Lymphocytes % (24.0-44.0) % Monocytes % (0.0-12.0) % Eosinophils % (0.00-5.0) % Basophils % (0.0-0.4) % Absolute Granulocytes (1.4-6.9) Basophils # (0-0.4) D-Dimer 1779 H* (215-500) ng/mL pO2/FiO2 Ratio % VBG pH (7.32-7.42) VBG pCO2 at Pat Temp (42-55) mm/Hg VBG pO2 at Pat Temp (25-40) mm/Hg VBG HCO3 (22-28) meq/L VBG O2 Sat (Jeff) (95-100) VBG Base Excess (-2.0-2.0) VBG Hemoglobin VBG Carboxyhemoglobin (0.0-6.9) % T HGB POC Potassium (3.5-5.1) Sodium (137-145) mmol/L Potassium (3.5-5.1) mmol/L Chloride (98-107) mmol/L Carbon Dioxide (22-30) mmol/L Anion Gap (5-15) MEQ/L BUN (9-20) mg/dL Creatinine (0.66-1.25) mg/dL Estimated GFR ML/MIN Glucose (74-106) mg/dL Hemoglobin A1c 7.90 H (4.5-6.0) % Calcium (8.4-10.2) mg/dL Total Bilirubin (0.2-1.3) mg/dL AST (17-59) U/L ALT (0-50) U/L Alkaline Phosphatase (38-126) U/L Troponin I 0.015 (0.000-0.034) ng/mL NT-Pro-B Natriuret Pep (0-900) pg/mL Serum Total Protein (6.3-8.2) g/dL Albumin (3.5-5.0) g/dL Urine Color (YELLOW) Urine Appearance (CLEAR) Urine pH (5-6) Ur Specific [place] (1.005-1.025) Urine Protein (Negative) Urine Ketones (NEGATIVE) Urine Blood (0-5) Alvarado/ul Urine Nitrite (NEGATIVE) Urine Bilirubin (NEGATIVE) Urine Urobilinogen (0-1) mg/dL Ur Leukocyte Esterase (NEGATIVE) Urine WBC (Auto) (0-5) /HPF Urine RBC (Auto) (0-2) /HPF U Hyaline Cast (Auto) (0-2) /LPF U Epithel Cells (Auto) (FEW) /HPF Urine Bacteria (Auto) (NEGATIVE) /HPF Urine Mucus (Auto) (NEGATIVE) /HPF Urine Culture Reflexed (NO) Urine Glucose (NEGATIVE) mg/dL Slides for Path Review 04/06/19 04/06/19 04/06/19 Range/Units 14:40 16:10 18:37 WBC (4.0-10.5) K/mm3 RBC (4.1-5.6) M/mm3 Hgb (12.5-18.0) gm/dl Hct (42-50) % MCV (78-100) fl MCH (26-32) pg MCHC (32-36) g/dl RDW (11.5-14.0) % Plt Count (150-450) K/mm3 MPV (6-9.5) fl Gran % (36.0-66.0) % Eos # (Auto) (0-0.5) Absolute Lymphs (auto) (1.0-4.6) Absolute Monos (auto) (0.0-1.3) Lymphocytes % (24.0-44.0) % Monocytes % (0.0-12.0) % Eosinophils % (0.00-5.0) % Basophils % (0.0-0.4) % Absolute Granulocytes (1.4-6.9) Basophils # (0-0.4) D-Dimer (215-500) ng/mL pO2/FiO2 Ratio % VBG pH (7.32-7.42) VBG pCO2 at Pat Temp (42-55) mm/Hg VBG pO2 at Pat Temp (25-40) mm/Hg VBG HCO3 (22-28) meq/L VBG O2 Sat (Jeff) (95-100) VBG Base Excess (-2.0-2.0) VBG Hemoglobin VBG Carboxyhemoglobin (0.0-6.9) % T HGB POC Potassium (3.5-5.1) Sodium (137-145) mmol/L Potassium (3.5-5.1) mmol/L Chloride (98-107) mmol/L Carbon Dioxide (22-30) mmol/L Anion Gap (5-15) MEQ/L BUN (9-20) mg/dL Creatinine (0.66-1.25) mg/dL Estimated GFR ML/MIN Glucose (74-106) mg/dL Hemoglobin A1c (4.5-6.0) % Calcium (8.4-10.2) mg/dL Total Bilirubin (0.2-1.3) mg/dL AST (17-59) U/L ALT (0-50) U/L Alkaline Phosphatase (38-126) U/L Troponin I 0.017 0.015 (0.000-0.034) ng/mL NT-Pro-B Natriuret Pep (0-900) pg/mL Serum Total Protein (6.3-8.2) g/dL Albumin (3.5-5.0) g/dL Urine Color YELLOW (YELLOW) Urine Appearance CLEAR (CLEAR) Urine pH 5.0 (5-6) Ur Specific [place] 1.025 (1.005-1.025) Urine Protein 30 (Negative) Urine Ketones NEGATIVE (NEGATIVE) Urine Blood MODERATE (0-5) Alvarado/ul Urine Nitrite NEGATIVE (NEGATIVE) Urine Bilirubin NEGATIVE (NEGATIVE) Urine Urobilinogen 2 (0-1) mg/dL Ur Leukocyte Esterase NEGATIVE (NEGATIVE) Urine WBC (Auto) 3-5 (0-5) /HPF Urine RBC (Auto) 6-10 (0-2) /HPF U Hyaline Cast (Auto) 0-2 (0-2) /LPF U Epithel Cells (Auto) NONE (FEW) /HPF Urine Bacteria (Auto) NONE (NEGATIVE) /HPF Urine Mucus (Auto) SLIGHT (NEGATIVE) /HPF Urine Culture Reflexed YES (NO) Urine Glucose 50 (NEGATIVE) mg/dL Slides for Path Review 04/06/19 04/07/19 04/07/19 Range/Units 21:45 00:59 00:59 WBC 5.2 (4.0-10.5) K/mm3 RBC 4.02 L (4.1-5.6) M/mm3 Hgb 12.9 (12.5-18.0) gm/dl Hct 39.4 L (42-50) % MCV 98.0 (78-100) fl MCH 32.0 (26-32) pg MCHC 32.7 (32-36) g/dl RDW 15.7 H (11.5-14.0) % Plt Count 39 L (150-450) K/mm3 MPV 12.9 H (6-9.5) fl Gran % 70.8 H (36.0-66.0) % Eos # (Auto) 0.13 (0-0.5) Absolute Lymphs (auto) 0.72 L (1.0-4.6) Absolute Monos (auto) 0.66 (0.0-1.3) Lymphocytes % 13.7 L (24.0-44.0) % Monocytes % 12.6 H (0.0-12.0) % Eosinophils % 2.5 (0.00-5.0) % Basophils % 0.4 (0.0-0.4) % Absolute Granulocytes 3.71 (1.4-6.9) Basophils # 0.02 (0-0.4) D-Dimer (215-500) ng/mL pO2/FiO2 Ratio % VBG pH (7.32-7.42) VBG pCO2 at Pat Temp (42-55) mm/Hg VBG pO2 at Pat Temp (25-40) mm/Hg VBG HCO3 (22-28) meq/L VBG O2 Sat (Jeff) (95-100) VBG Base Excess (-2.0-2.0) VBG Hemoglobin VBG Carboxyhemoglobin (0.0-6.9) % T HGB POC Potassium (3.5-5.1) Sodium (137-145) mmol/L Potassium (3.5-5.1) mmol/L Chloride (98-107) mmol/L Carbon Dioxide (22-30) mmol/L Anion Gap (5-15) MEQ/L BUN (9-20) mg/dL Creatinine (0.66-1.25) mg/dL Estimated GFR ML/MIN Glucose (74-106) mg/dL Hemoglobin A1c (4.5-6.0) % Calcium (8.4-10.2) mg/dL Total Bilirubin (0.2-1.3) mg/dL AST (17-59) U/L ALT (0-50) U/L Alkaline Phosphatase (38-126) U/L Troponin I 0.013 0.013 (0.000-0.034) ng/mL NT-Pro-B Natriuret Pep (0-900) pg/mL Serum Total Protein (6.3-8.2) g/dL Albumin (3.5-5.0) g/dL Urine Color (YELLOW) Urine Appearance (CLEAR) Urine pH (5-6) Ur Specific [place] (1.005-1.025) Urine Protein (Negative) Urine Ketones (NEGATIVE) Urine Blood (0-5) Alvarado/ul Urine Nitrite (NEGATIVE) Urine Bilirubin (NEGATIVE) Urine Urobilinogen (0-1) mg/dL Ur Leukocyte Esterase (NEGATIVE) Urine WBC (Auto) (0-5) /HPF Urine RBC (Auto) (0-2) /HPF U Hyaline Cast (Auto) (0-2) /LPF U Epithel Cells (Auto) (FEW) /HPF Urine Bacteria (Auto) (NEGATIVE) /HPF Urine Mucus (Auto) (NEGATIVE) /HPF Urine Culture Reflexed (NO) Urine Glucose (NEGATIVE) mg/dL Slides for Path Review 04/07/19 Range/Units 00:59 WBC (4.0-10.5) K/mm3 RBC (4.1-5.6) M/mm3 Hgb (12.5-18.0) gm/dl Hct (42-50) % MCV (78-100) fl MCH (26-32) pg MCHC (32-36) g/dl RDW (11.5-14.0) % Plt Count (150-450) K/mm3 MPV (6-9.5) fl Gran % (36.0-66.0) % Eos # (Auto) (0-0.5) Absolute Lymphs (auto) (1.0-4.6) Absolute Monos (auto) (0.0-1.3) Lymphocytes % (24.0-44.0) % Monocytes % (0.0-12.0) % Eosinophils % (0.00-5.0) % Basophils % (0.0-0.4) % Absolute Granulocytes (1.4-6.9) Basophils # (0-0.4) D-Dimer (215-500) ng/mL pO2/FiO2 Ratio % VBG pH (7.32-7.42) VBG pCO2 at Pat Temp (42-55) mm/Hg VBG pO2 at Pat Temp (25-40) mm/Hg VBG HCO3 (22-28) meq/L VBG O2 Sat (Jeff) (95-100) VBG Base Excess (-2.0-2.0) VBG Hemoglobin VBG Carboxyhemoglobin (0.0-6.9) % T HGB POC Potassium (3.5-5.1) Sodium 137 (137-145) mmol/L Potassium 3.8 (3.5-5.1) mmol/L Chloride 100 (98-107) mmol/L Carbon Dioxide 32 H (22-30) mmol/L Anion Gap 8.9 (5-15) MEQ/L BUN 16 (9-20) mg/dL Creatinine 0.56 L (0.66-1.25) mg/dL Estimated GFR > 60.0 ML/MIN Glucose 217 H (74-106) mg/dL Hemoglobin A1c (4.5-6.0) % Calcium 8.5 (8.4-10.2) mg/dL Total Bilirubin 1.20 (0.2-1.3) mg/dL AST 55 (17-59) U/L ALT 16 (0-50) U/L Alkaline Phosphatase 124 (38-126) U/L Troponin I (0.000-0.034) ng/mL NT-Pro-B Natriuret Pep (0-900) pg/mL Serum Total Protein 6.3 (6.3-8.2) g/dL Albumin 2.9 L (3.5-5.0) g/dL Urine Color (YELLOW) Urine Appearance (CLEAR) Urine pH (5-6) Ur Specific [place] (1.005-1.025) Urine Protein (Negative) Urine Ketones (NEGATIVE) Urine Blood (0-5) Alvarado/ul Urine Nitrite (NEGATIVE) Urine Bilirubin (NEGATIVE) Urine Urobilinogen (0-1) mg/dL Ur Leukocyte Esterase (NEGATIVE) Urine WBC (Auto) (0-5) /HPF Urine RBC (Auto) (0-2) /HPF U Hyaline Cast (Auto) (0-2) /LPF U Epithel Cells (Auto) (FEW) /HPF Urine Bacteria (Auto) (NEGATIVE) /HPF Urine Mucus (Auto) (NEGATIVE) /HPF Urine Culture Reflexed (NO) Urine Glucose (NEGATIVE) mg/dL Slides for Path Review Radiology Exams: Radiology Procedures Category Date Time Status CHEST 1 VIEW (PORTABLE) Routine Exams 04/06/19 15:08 Completed CHEST 1 VIEW (PORTABLE) Stat Exams 04/06/19 12:40 Completed CHEST WITH CONTRAST [CT] Stat Exams 04/06/19 13:33 Completed THORACENTESIS [US] Stat Exams 04/06/19 15:16 Completed Assessment/Plan (1) Pleural effusion Current Visit: Yes Status: Chronic Assessment & Plan: s/p draining 4L. He is still having pain, although it is less. Code(s): J90 - PLEURAL EFFUSION, NOT ELSEWHERE CLASSIFIED (2) General weakness Current Visit: No Status: Acute Assessment & Plan: work with PT as tolerated. I think due to his chronic conditions and recent pleural effusion. Code(s): R53.1 - WEAKNESS (3) Chest pain Current Visit: No Status: Acute Qualifiers: Chest pain type: unspecified Qualified Code(s): R07.9 - Chest pain, unspecified Code(s): R07.9 - CHEST PAIN, UNSPECIFIED (4) Liver cancer Current Visit: No Status: Chronic Qualifiers: Liver malignancy type: unspecified primary liver malignancy Qualified Code( s): C22.8 - Malignant neoplasm of liver, primary, unspecified as to type Code(s): C22.9 - MALIG NEOPLASM OF LIVER, NOT SPECIFIED PRIMARY OR SEC (5) Diabetes mellitus Current Visit: No Status: Chronic Code(s): E11.9 - TYPE 2 DIABETES MELLITUS WITHOUT COMPLICATIONS (6) Atrial fibrillation Current Visit: Yes Status: Chronic Qualifiers: Atrial fibrillation type: chronic Qualified Code(s): I48.2 - Chronic atrial fibrillation Code(s): I48.91 - UNSPECIFIED ATRIAL FIBRILLATION
[2019-04-07] MEDS: Phenergan 25 MG INJ IV PRN (12:09)
[2019-04-07] MEDS: MORPHINE SULFATE 4 MG INJ IV PRN (16:35)
[2019-04-07] MEDS: Lantus Insulin SQ SCH (22:30)
[2019-04-08] MEDS: MORPHINE SULFATE 4 MG INJ IV PRN ×2 (03:06→13:00)
[2019-04-08] MEDS: Phenergan 25 MG INJ IV PRN (03:33)
[2019-04-08] MEDS: NovoLOG Insulin SQ SCH ×3 (07:40→17:25)
[2019-04-08] MEDS: THERAGRAN MULTIVITAMIN PO SCH (09:36)
[2019-04-08] MEDS: Lopressor 25MG Tab PO SCH ×2 (09:36→22:53)
[2019-04-08] MEDS: FOLATE 1 MG PO SCH (09:37)
--- NOTE | 2019-04-08 15:35 | PCM.NOTE ---
Date and Time: 04/08/19 1531 Subjective Assessment: BP up to 160s systolic. He is still c/o R upper back pain. After morphine his pain decreases from 9/10 to 7/10. He needs assist to get to the bathroom. - Review of Systems Constitutional: No Fever Musculoskeletal: Back Pain Objective Exam General Appearance: no apparent distress, alert Neurologic Exam: oriented x 3, cooperative Skin Exam: normal color, warm, dry, No rash Respiratory Exam: lungs clear, diminished breath sounds (but present/increased in RLL), No crackles/rales, No rhonchi, No wheezing Cardiovascular Exam: regular rate/rhythm, normal heart sounds, No murmur Gastrointestinal/Abdomen Exam: soft, normal bowel sounds, tenderness (RUQ), No mass, No guarding, No rebound Extremity Exam: normal inspection, No pedal edema, No swelling (ASHLEY hose inplace ; SCDs unhooked) OBJECTIVE DATA Vital Signs: Vital Signs - 24 hr Temp Pulse Resp BP Pulse Ox 04/08/19 11:50 97.8 F 99 H 20 139/72 97 04/08/19 07:54 97.7 F 92 H 20 147/79 90 L 04/08/19 06:41 86 18 92 L 04/08/19 04:00 97.6 F 82 18 163/76 95 04/07/19 23:41 98.2 F 91 H 20 160/77 97 04/07/19 20:00 97.6 F 87 20 166/84 95 04/07/19 19:13 86 18 96 04/07/19 16:30 97.0 F 80 20 138/76 95 04/07/19 16:00 97.0 F 80 20 138/76 95 Oxygen-Last 24 hours O2 Percentage 2 Liters = 28% O2 Percentage 2 Liters = 28% O2 Percentage 2 Liters = 28% Pain Assessment - Last Documented Pain Intensity 8 Pain Scale Used 0-10 Pain Scale Intake and Output: Intake & Output 04/06/19 04/07/19 04/08/19 04/09/19 11:59 11:59 11:59 11:59 Intake Total 560 1720 480 Output Total 875 Balance 560 845 480 Weight 101.2 kg 100.1 kg Lab Results: Accuchecks Date 04/08/19 Date 04/08/19 Date 04/07/19 Time 11:30 Time 07:41 Time 21:00 Accucheck Value: 79 Accucheck Value: 231 Accucheck Value: 122 Radiology Exams: Radiology Procedures Category Date Time Status CHEST 1 VIEW (PORTABLE) Routine Exams 04/06/19 15:08 Completed CHEST 2 VIEWS (PA AND LAT) Routine Exams 04/08/19 14:41 Taken THORACENTESIS [US] Stat Exams 04/06/19 15:16 Completed Assessment/Plan (1) Pleural effusion Current Visit: Yes Status: Chronic Assessment & Plan: Recheck CXR, but his exam is much better. Code(s): J90 - PLEURAL EFFUSION, NOT ELSEWHERE CLASSIFIED (2) General weakness Current Visit: No Status: Acute Assessment & Plan: Persistent. Would definitely benefit from therapy; will talk to discharge planning tomorrow about whether he may qualify for a swing bed stay or rehab. Definitely not safe to go home at this time. Code(s): R53.1 - WEAKNESS (3) Chest pain Current Visit: No Status: Acute Qualifiers: Chest pain type: unspecified Qualified Code(s): R07.9 - Chest pain, unspecified Assessment & Plan: actually it's back/shoulder pain, but has been present since he needed the fluid tapped so I am considering it to be chest pain. Code(s): R07.9 - CHEST PAIN, UNSPECIFIED (4) Liver cancer Current Visit: No Status: Chronic Qualifiers: Liver malignancy type: unspecified primary liver malignancy Qualified Code( s): C22.8 - Malignant neoplasm of liver, primary, unspecified as to type Code(s): C22.9 - MALIG NEOPLASM OF LIVER, NOT SPECIFIED PRIMARY OR SEC (5) Diabetes mellitus Current Visit: No Status: Chronic Code(s): E11.9 - TYPE 2 DIABETES MELLITUS WITHOUT COMPLICATIONS (6) Atrial fibrillation Current Visit: Yes Status: Chronic Qualifiers: Atrial fibrillation type: chronic Qualified Code(s): I48.2 - Chronic atrial fibrillation Code(s): I48.91 - UNSPECIFIED ATRIAL FIBRILLATION
[2019-04-08] MEDS: NovoLOG Insulin SQ PRN (17:26)
--- NOTE | 2019-04-08 20:36 | XRAY ---
Indication: Short of breath. Shoulder pain. Status post right thoracentesis 2 days ago. Comparison: April 06, 2019. PA/lateral chest demonstrates reaccumulating moderate right effusion with compressive atelectasis now occupying at least 50% of the hemithorax. Remaining heart and lungs unremarkable again with left lung calcified granulomas. Comment: Preliminary interpretation was made by [facility]. No discrepancy.
[2019-04-08] MEDS: OXYCODONE-ACETAMINOPHEN 10-325 PO PRN (20:46)
[2019-04-08] MEDS: Lantus Insulin SQ SCH (22:55)
[2019-04-09] MEDS: MORPHINE SULFATE 4 MG INJ IV PRN (01:51)
[2019-04-09] MEDS: OXYCODONE-ACETAMINOPHEN 10-325 PO PRN ×2 (08:25→12:54)
[2019-04-09] MEDS: THERAGRAN MULTIVITAMIN PO SCH (08:25)
[2019-04-09] MEDS: Lopressor 25MG Tab PO SCH (08:25)
[2019-04-09] MEDS: FOLATE 1 MG PO SCH (08:26)
[2019-04-09] MEDS: NovoLOG Insulin SQ SCH ×2 (08:34→12:49)
[2019-04-09 09:13] LABS: BASOPHIL % 0.3 % (0.0-0.4); Basophil (Absolute #) 0.01 (0-0.4); Eosinophil % 5.4 % (0.00-5.0); Eosinophil (Absolute #) 0.19 (0-0.5); Granulocyte Absolute (ANC) 2.24 (1.4-6.9); Hematocrit 38.3 % (42-50); Hemoglobin 12.9 gm/dl (12.5-18.0); Lymphocyte (Absolute #) 0.62 (1.0-4.6); Lymphocytes % 17.7 % (24.0-44.0); Mean Cell Volume 98.7 fl (78-100); Mean Corpuscular Hemoglobin 33.2 pg (26-32); Mean Corpuscular Hgb Concent. 33.7 g/dl (32-36); Mean Platelet Volume 13.6 fl (6-9.5); Monocyte (Absolute #) 0.44 (0.0-1.3); Monocytes % 12.6 % (0.0-12.0); Platelet Count 34 K/mm3 (150-450); Red Blood Count 3.88 M/mm3 (4.1-5.6); Red Cell Distribution Width 15.9 % (11.5-14.0); White Blood Count 3.5 K/mm3 (4.0-10.5)
[2019-04-09 09:35] LABS: ALKALINE PHOSPHATASE 131 U/L (38-126); ANION GAP 6.7 MEQ/L (5-15); BLOOD UREA NITROGEN 19 mg/dL (9-20); CHLORIDE 97 mmol/L (98-107); Calcium 8.9 mg/dL (8.4-10.2); Carbon Dioxide 39 mmol/L (22-30); Creatinine 1 0.54 mg/dL (0.66-1.25); Glucose 179 mg/dL (74-106); Potassium 4.6 mmol/L (3.5-5.1); SGOT/AST 53 U/L (17-59); SGPT/ALT 14 U/L (0-50); SODIUM 138 mmol/L (137-145); Total Protein 6.5 g/dL (6.3-8.2)
[2019-04-09 10:16] LABS: Slide Review 1 YES
[2019-04-09 12:29] VITALS: BP 141/67; PULSE 73; O2SAT 96
[2019-04-09] MEDS: NovoLOG Insulin SQ PRN (12:48)
--- NOTE | 2019-04-09 13:21 | PCM.DS ---
Discharge Summary Date of Admission: 04/06/19 17:21 Admitting Physician: ARNAV GONZÁLES Primary Care Provider: ARNAV GONZÁLES Allergies Allergies pregabalin [From Lyrica] Allergy (Severe, Verified 04/06/19 17:42) trouble breathing and rash duloxetine [From Cymbalta] Allergy (Verified 04/06/19 17:42) Rash Hospital Summary - Hospital Course Hospital Course: Pt is a 68 yo male pt of the [place] [facility], does see me in clinic at times as well, with hx alcohol abuse, liver cancer, HTN, DM, afib who was admitted directly 3d ago after his pleural fluid was drained. Pt was seen at [facility] in by Dr. Valiente and was set up wtih an appt to have his fluid drained on 04/16, but was told he might need to come to [place] to see about getting it drained earlier. Pt was up all nigth having SOB and R upper back pain so he came to ER. On CXR >50% of the R hemithorax was opaque. On CT scan 75% of the R hemithorax had fluid and there was a mediastinal shift, so our radiologist Dr. Lion drained 4L of fluid. Pt was still not feeling well so was admitted for observation. He continued to have the pain, although it was somewhat better until last night. He was also SOB last night. CXR done yesterday (called to me at 6 a.m. this morning) showed re-accumulation of fluid, to 50% of the hemithorax on R. I called the [facility] and spoke with Dr. Chavis; she spoke with the pt's pulmonary team and they would like the pt transferred up so they can evaluate him in person. Discussed drainage tube but thought he might not qualify due to his alcohol abuse (I did let them know he states he was sober x 1 mo). Pt's vitals have been stable throughout his stay. Plt are low at 34. Hgb is stable, nl. CMP overall grossly nl. Pt continues to complain of feeling weak, has to have assistance to the bathroom. He lives alone so may be interested in rehab after he is discharged. - Vitals & Intake/Output Vital Signs: Vital Signs Temperature 98.0 F 04/09/19 12:00 Pulse Rate 73 04/09/19 12:00 Respiratory Rate 20 08/12/19 12:00 Blood Pressure 141/67 04/09/19 12:00 O2 Sat by Pulse Oximetry 96 04/09/19 12:00 Oxygen-Last Documented O2 Percentage 2 Liters = 28% Intake & Output: Intake & Output 04/07/19 04/08/19 04/09/19 04/10/19 11:59 11:59 11:59 11:59 Intake Total 560 1720 1360 Output Total 875 Balance 718 904 2011 Weight 101.2 kg 100.1 kg 103.6 kg - Lab Result Diagrams: 04/09/19 08:42 04/09/19 08:42 Lab Results-Last 24 Hrs: Accuchecks Date 04/08/19 Date 04/08/19 Time 21:00 Time 16:30 Accucheck Value: 216 Accucheck Value: 126 Accucheck Value: 101 Accucheck Value: 211 Lab Results-Last 24 Hours 04/09/19 04/09/19 Range/Units 08:42 08:42 WBC 3.5 L (4.0-10.5) K/mm3 RBC 3.88 L (4.1-5.6) M/mm3 Hgb 12.9 (12.5-18.0) gm/dl Hct 38.3 L (42-50) % MCV 98.7 (78-100) fl MCH 33.2 H (26-32) pg MCHC 33.7 (32-36) g/dl RDW 15.9 H (11.5-14.0) % Plt Count 34 L (150-450) K/mm3 MPV 13.6 H (6-9.5) fl Gran % 64.0 (36.0-66.0) % Eos # (Auto) 0.19 (0-0.5) Absolute Lymphs (auto) 0.62 L (1.0-4.6) Absolute Monos (auto) 0.44 (0.0-1.3) Lymphocytes % 17.7 L (24.0-44.0) % Monocytes % 12.6 H (0.0-12.0) % Eosinophils % 5.4 H (0.00-5.0) % Basophils % 0.3 (0.0-0.4) % Absolute Granulocytes 2.24 (1.4-6.9) Basophils # 0.01 (0-0.4) Sodium 138 (137-145) mmol/L Potassium 4.6 (3.5-5.1) mmol/L Chloride 97 L (98-107) mmol/L Carbon Dioxide 39 H (22-30) mmol/L Anion Gap 6.7 (5-15) MEQ/L BUN 19 (9-20) mg/dL Creatinine 0.54 L (0.66-1.25) mg/dL Estimated GFR > 60.0 ML/MIN Glucose 179 H (74-106) mg/dL Calcium 8.9 (8.4-10.2) mg/dL Total Bilirubin 1.00 (0.2-1.3) mg/dL AST 53 (17-59) U/L ALT 14 (0-50) U/L Alkaline Phosphatase 131 H (38-126) U/L Serum Total Protein 6.5 (6.3-8.2) g/dL Albumin 3.0 L (3.5-5.0) g/dL Slides for Path Review YES Micro Results-Entire Visit: Microbiology 04/06/19 14:40 Urine Culture - Final Urine, Void NO GROWTH Accuchecks Date 04/08/19 Date 04/08/19 Time 21:00 Time 16:30 Accucheck Value: 216 Accucheck Value: 126 Accucheck Value: 101 Accucheck Value: 211 - Radiology Exams Ordered Rad Exams-Entire Visit: Radiology Procedures Category Date Time Status CHEST 2 VIEWS (PA AND LAT) Routine Exams 04/08/19 14:41 Completed - Procedures and Test Procedures and Tests throughout Hospitalization: Therapy Orders & Screens 04/06/19 14:07 Respiratory Therapy Assessment DAILY Comment: 04/06/19 14:08 Peak Expiratory Flow Rate ONCE Comment: Reason For Exam: 04/06/19 17:33 Oxygen Nasal Cannula 2 lpm Comment: Respiratory Therapy Consult ROUTINE Comment: Reason For Exam: 04/06/19 17:54 Respiratory Therapy Assessment DAILY Comment: 04/07/19 11:56 PT Eval & Treat (MD Order) Reason for Eval:: Generalized weakness and unsteadiness Diagnosis: SOB pleural effusion Discharge Exam General Appearance: mild distress, other (exam done this morning) Neurologic Exam: alert, oriented x 3, cooperative Eye Exam: eyes nml inspection Ears, Nose, Throat Exam: moist mucous membranes Respiratory Exam: diminished breath sounds (very diminished RLL), crackles/ rales (LLL), No rhonchi, No wheezing Cardiovascular Exam: regular rate/rhythm, normal heart sounds, No murmur Skin Exam: normal color, warm, dry, No rash Final Diagnosis/Problem List - Final Discharge Diagnosis/Problem (1) Pleural effusion Current Visit: Yes Status: Chronic Assessment & Plan: WIll transfer pt up to [facility]. I spoke with Dr. Chavis. thank you! Code(s): J90 - PLEURAL EFFUSION, NOT ELSEWHERE CLASSIFIED (2) General weakness Current Visit: No Status: Acute Assessment & Plan: worse this past week. Code(s): R53.1 - WEAKNESS (3) Chest pain Current Visit: No Status: Acute Assessment & Plan: His pain is actually upper back on R, but I do believe it is due to the pleural effusion. Code(s): R07.9 - CHEST PAIN, UNSPECIFIED (4) Liver cancer Current Visit: No Status: Chronic Code(s): C22.9 - MALIG NEOPLASM OF LIVER, NOT SPECIFIED PRIMARY OR SEC (5) Diabetes mellitus Current Visit: No Status: Chronic Code(s): E11.9 - TYPE 2 DIABETES MELLITUS WITHOUT COMPLICATIONS (6) Atrial fibrillation Current Visit: Yes Status: Chronic Code(s): I48.91 - UNSPECIFIED ATRIAL FIBRILLATION - Discharge Disposition: DC TO OTHER HOSP Condition: Stable Prescriptions: No Action Insulin Glargine [Lantus Insulin] 50 unit SQ QHS Insulin Aspart [NovoLOG Insulin] 0 unit SQ UD PRN PRN Reason: elevated blood sugar Metoprolol Tartrate 25 mg [Lopressor 25MG Tab] 12.5 mg PO BID Folic Acid 1 mg [Folate 1 mg] 1 mg PO DAILY Multivitamin [Multivitamins] 1 each PO DAILY Follow up with: ARNAV GONZÁLES [Primary Care Provider] - 1 Week
== END 2019-04-09 13:50 ==
LOC: ED 11:58 → MED SURG 17:21
PROVIDERS: ADMIT Family Medicine; ATTEND Family Medicine
DX: J90 Pleural effusion, not elsewhere classified (principal); R53.1 Weakness; R07.9 Chest pain, unspecified; C22.9 Malignant neoplasm of liver, not specified as primary or secondary; E11.9 Type 2 diabetes mellitus without complications; I48.91 Unspecified atrial fibrillation; Z79.899 Other long term (current) drug therapy; I10 Essential (primary) hypertension; M25.512 Pain in left shoulder; M25.511 Pain in right shoulder; K74.60 Unspecified cirrhosis of liver; B19.20 Unspecified viral hepatitis C without hepatic coma; R09.02 Hypoxemia; F10.21 Alcohol dependence, in remission
CPT/HCPCS: 32557; 36000; 36415; 71045; 71046; 71260; 80053; 81001; 82805; 82962; 83036; 83880; 84484; 85025; 85379; 87040; 87070; 87086; 89050; 89051; 93005; 93268; 94150; 94640; 94760; 94762; 96374; 96375; 99285; G0378; J1940; J2270; J2405; J2550; A9270-GY

== ENCOUNTER 2019-08-04 15:56 | Inpatient (IN) | payer MEDICARE, OTHER ==
[2019-08-04] MEDS ORDERED: Dextrose 5%-Lr IV Solution 1000 ML 1,000 ML IV ONE ×4 (16:08→17:54)
--- NOTE | 2019-08-04 16:38 | ERPHSYRPT ---
- History of Present Illness Source: patient, family Exam Limitations: clinical condition, physical impairment Patient Subjective Stated Complaint: INCREASED WEAKNESS TODAY. HX OF LIVER CA. STATES UNABLE TO EAT OR DRINK TODAY. Triage Nursing Assessment: TO ROOM PER AMB COT. SKIN W/D, COLOR JAUNDICED. RESP NONLABORED. PATIENT DOZING OFF DURING TRIAGE. Associated Symptoms: loss of appetite, weakness Hx Tetanus, Diphtheria Vaccination/Date Given: Yes Hx Influenza Vaccination/Date Given: Yes Hx Pneumococcal Vaccination/Date Given: Yes - History of Present Illness Time Seen by Provider: 08/04/19 16:33 Physician History: patient came to ER c/o weakness and unable to eat. 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 (OTILIA,YONIS) Allergies/Adverse Reactions: pregabalin [From Lyrica] Allergy (Severe, Verified 04/06/19 17:42) trouble breathing and rash duloxetine [From Cymbalta] Allergy (Verified 04/06/19 17:42) Rash Home Medications: Insulin Glargine [Lantus Insulin] 50 unit SQ QHS 11/16/13 [History] Insulin Aspart [NovoLOG Insulin] 0 unit SQ UD PRN 05/20/16 [History] Metoprolol Tartrate 25 mg [Lopressor 25MG Tab] 12.5 mg PO BID 08/19/16 [ History] Folic Acid 1 mg [Folate 1 mg] 1 mg PO DAILY 04/06/19 [History] Multivitamin [Multivitamins] 1 each PO DAILY 04/06/19 [History] - Review of Systems Constitutional: Fatigue, Lethargy, Malaise, Weakness Eyes: No Symptoms Ears, Nose, & Throat: No Symptoms Respiratory: Dyspnea on Exertion (ZACARIAS) Cardiac: No Symptoms Abdominal/Gastrointestinal: Abdominal Pain, Nausea Genitourinary Symptoms: No Symptoms Musculoskeletal: No Symptoms Skin: No Symptoms Neurological: Lethargy Psychological: No Symptoms - Past Medical History Pertinent Past Medical History: Yes Neurological History: No Pertinent History ENT History: Glaucoma Cardiac History: Arrhythmia, Hypertension, Peripheral Vascular Disease Respiratory History: No Pertinent History Endocrine Medical History: Diabetes Type II Musculoskeletal History: Arthritis GI Medical History: Cirrhosis, GERD, Hepatitis, Hernia, Liver Cancer History: No Pertinent History Psycho-Social History: Anxiety, Bipolar, Depression, Other Male Reproductive Disorders: No Pertinent History Other Medical History: hepatitis C (treated), AFib, has tried to commit suicide in the past. Prior drug and ETOH use (no longer uses) - Past Surgical History Past Surgical History: Yes Neuro Surgical History: No Pertinent History Cardiac: No Pertinent History Respiratory: No Pertinent History Gastrointestinal: Hernia Repair Genitourinary: No Pertinent History Musculoskeletal: Amputation Male Surgical History: No Pertinent History Other Surgical History: 4th and 5th toe amputated off of left foot. 5th toe amputated off of the right foot. fluid drained from lungs 4 times in the last 3 months. fluid drained from abd once in the last 3 months - Social History Smoking Status: Former smoker How long have you smoked: 20 years Exposure to second hand smoke: No Drug Use: none Patient Lives Alone: Yes - Physical Exam General Appearance: moderate distress, alert Eye Exam: PERRL/EOMI, eyes nml inspection Ears, Nose, Throat Exam: normal ENT inspection, TMs normal, pharynx normal, moist mucous membranes Neck Exam: normal inspection, non-tender, supple, full range of motion Respiratory Exam: normal breath sounds, lungs clear, No respiratory distress Cardiovascular Exam: regular rate/rhythm, normal heart sounds, normal peripheral pulses Gastrointestinal/Abdomen Exam: soft, normal bowel sounds, No tenderness, No mass Back Exam: normal inspection, normal range of motion, No CVA tenderness, No vertebral tenderness Extremity Exam: normal inspection, normal range of motion, pelvis stable Neurologic Exam: alert, oriented x 3, cooperative, normal mood/affect, nml cerebellar function, nml station & gait, sensation nml, No motor deficits Skin Exam: normal color, warm, dry, No rash Lymphatic Exam: No adenopathy SpO2: 94 - Nursing Vital Signs Nursing Vital Signs: Initial Vital Signs Temperature 97.3 F 08/04/19 16:04 Pulse Rate 63 08/04/19 16:04 Respiratory Rate 18 08/04/19 16:04 Blood Pressure 152/93 08/04/19 16:04 O2 Sat by Pulse Oximetry 94 L 08/04/19 16:04 Pain Scale Pain Intensity 4 - Course Nursing assessment & vital signs reviewed: Yes Ordered Tests: Active Orders 24 hr Category Date Time Status Up Ad Katie ROUTINE Activity 08/04/19 21:23 Active Admit as Inpatient ROUTINE Care 08/04/19 21:23 Active Code Status Order ROUTINE Care 08/04/19 21:23 Active Fall Protocol ROUTINE Care 08/04/19 21:23 Active IV Care Q6H Care 08/04/19 21:23 Active Miscellaneous Nursing Order ROUTINE Care 08/04/19 21:23 Active Regular Diet Diet 08/04/19 Breakfast Active Transfer Order Routine Transfer 08/04/19 Completed Medication Summary Generic Name Dose Route Start Last Admin Trade Name Freq PRN Reason Stop Dose Admin Dextrose/Sodium Chloride 1,000 mls @ 100 mls/hr 08/04/19 21:23 Dextrose 5% -0.45 Nacl 1000 Ml IV 09/03/19 21:22 .Q10H AMADA Morphine Sulfate 4 mg 08/04/19 21:23 Morphine Sulfate 4 Mg Inj IV 08/09/19 21:22 Q4H PRN PRN PAIN Ondansetron HCl 4 mg 08/04/19 21:23 Zofran 4 Mg/2 Ml Vial IV 09/03/19 21:22 Q6H PRN PRN NAUSEA/VOMITING Discontinued Medications Generic Name Dose Route Start Last Admin Trade Name Freq PRN Reason Stop Dose Admin Dextrose/Lactated Ringer's 1,000 mls @ 999 mls/hr 08/04/19 16:08 08/04/19 18: 49 Dextrose 5%-Lr Iv Solution 1000 Ml IV 08/04/19 17:08 Infused .Q1H1M ONE Infusion Dextrose/Lactated Ringer's Confirm 08/04/19 16:19 Dextrose 5%-Lr Iv Solution 1000 Ml Administered 08/04/19 16:20 Dose 1,000 mls @ ud IV .STK-MED ONE Dextrose/Lactated Ringer's 1,000 mls @ 999 mls/hr 08/04/19 17:54 08/04/19 19: 00 Dextrose 5%-Lr Iv Solution 1000 Ml IV 08/04/19 18:54 Infused .Q1H1M ONE Infusion Dextrose/Lactated Ringer's Confirm 08/04/19 17:54 Dextrose 5%-Lr Iv Solution 1000 Ml Administered 08/04/19 17:55 Dose 1,000 mls @ ud IV .STK-MED ONE Morphine Sulfate 4 mg 08/04/19 18:04 08/04/19 18:28 Morphine Sulfate 4 Mg Inj IV 08/04/19 18:05 4 mg STAT ONE Administration Morphine Sulfate Confirm 08/04/19 18:19 Morphine Sulfate 4 Mg Inj Administered 08/04/19 18:20 Dose 4 mg .ROUTE .STK-MED ONE - Progress Progress: unchanged Counseled pt/family regarding: diagnosis - Progress Progress Note: 08/04/19 18:05 Initially [facility]PID care at local [facility] was considered but due to weekend, no perssonel were available . [facility] local arrangements can be made as patient is very weak and do require 24 hours care. Son is trying to make arrangement at his home but It may take 2-3 days so we will try to arrange temporary placement. 08/04/19 18:51 c/o intractable abdominal pain , morphine has not helped him. unable to reach anybody at [facility]. will admit patient at [facility] as G[facility] for control of abdominal pain and other related symptoms (YONIS BINGHAM) 08/04/19 21:26 pt was admitted by Dr. Bingham , but also required hospice eval in ER prior to sending to floor - pt tolerating this well and is comfortable and now transfered to floor without additional concerns. (CHILO BERNAL) - Departure Departure Disposition: In-patient Admission Critical Care Time: No - Departure Clinical Impression: Liver cancer, primary, with metastasis from liver to other site, Hospice care patient, Intractable abdominal pain Condition: Fair
[2019-08-04] MEDS ORDERED: MORPHINE SULFATE 4 MG INJ IV ONE (18:04)
[2019-08-04] MEDS ORDERED: MORPHINE SULFATE 4 MG INJ ONE (18:19)
[2019-08-04] MEDS ORDERED: Dextrose 5% -0.45 NaCl 1000 ML 1,000 ML IV SCH (21:23)
[2019-08-04] MEDS ORDERED: Ativan 2 MG/1 ML VIAL ONE (22:02)
[2019-08-04] MEDS: Ativan 2 MG/1 ML VIAL IV PRN (22:14)
[2019-08-04] MEDS: MORPHINE SULFATE 4 MG INJ IV PRN (22:14)
[2019-08-04] MEDS: Zofran 4 MG/2 ML VIAL IV PRN (22:14)
[2019-08-05] MEDS: MORPHINE SULFATE 4 MG INJ IV PRN ×4 (08:02→20:19)
[2019-08-05] MEDS: Zofran 4 MG/2 ML VIAL IV PRN ×2 (12:13→16:34)
[2019-08-06] MEDS: MORPHINE SULFATE 4 MG INJ IV PRN ×4 (00:43→23:27)
[2019-08-06] MEDS: Ativan 2 MG/1 ML VIAL IV PRN ×3 (03:31→18:13)
--- NOTE | 2019-08-06 13:29 | PCM.HP ---
History of Present Illness - Chief Complaint Chief Complaint: patient admitted for pain control and dysphagia management under hospice ca History of Present Illness: is a 68 year old male admitted for comfort measures and pain and dysphagia symptoms control - Review of Systems Constitutional: Lethargy, Weakness, Weight Loss, No Fever, No Chills Eyes: No Symptoms Ears, Nose, & Throat: No Symptoms Respiratory: Orthopnea, Short Of Breath, No Cough Cardiac: No Chest Pain, No Edema, No Syncope Abdominal/Gastrointestinal: No Abdominal Pain, No Nausea, No Vomiting, No Diarrhea Genitourinary Symptoms: No Dysuria Musculoskeletal: No Back Pain, No Neck Pain Skin: No Rash Neurological: Lethargy, Speech Changes, No Dizziness, No Focal Weakness, No Sensory Changes Psychological: No Symptoms Endocrine: No Symptoms Hematologic/Lymphatic: No Symptoms Immunological/Allergic: No Symptoms Medications & Allergies Home Medications: Home Medication List Insulin Glargine [Lantus Insulin] 50 unit SQ QHS 11/16/13 [History Confirmed 04/06/19] Insulin Aspart [NovoLOG Insulin] 0 unit SQ UD PRN 05/20/16 [History Confirmed 04/06/19] Metoprolol Tartrate 25 mg [Lopressor 25MG Tab] 12.5 mg PO BID 08/19/16 [ History Confirmed 04/06/19] Folic Acid 1 mg [Folate 1 mg] 1 mg PO DAILY 04/06/19 [History Confirmed ] Multivitamin [Multivitamins] 1 each PO DAILY 04/06/19 [History Confirmed ] Allergies/Adverse Reactions: Allergies Allergy/AdvReac Type Severity Reaction Status Date / Time pregabalin [From Lyrica] Allergy Severe Verified 04/06/19 17:42 duloxetine [From Cymbalta] Allergy Rash Verified 04/06/19 17:42 - Past Medical History Past Medical History: Yes Neurological History: No Pertinent History ENT History: Glaucoma Cardiac History: Arrhythmia, Hypertension, Peripheral Vascular Disease Respiratory History: No Pertinent History Endocrine Medical History: Diabetes Type II Musculoskelatal History: Arthritis GI Medical History: Cirrhosis, GERD, Hepatitis, Hernia, Liver Cancer History: No Pertinent History Pyscho-Social History: Anxiety, Bipolar, Depression, Other Male Reproductive Disorders: No Pertinent History Comment: hepatitis C (treated), AFib, has tried to commit suicide in the past. Prior drug and ETOH use (no longer uses) - Past Surgical History Past Surgical History: Yes Neuro Surgical History: No Pertinent History Cardiac History: No Pertinent History Respiratory Surgery: No Pertinent History GI Surgical History: Hernia Repair Genitourinary Surgical Hx: No Pertinent History Musculskeletal Surgical Hx: Amputation Male Surgical History: No Pertinent History Other Surgical History: 4th and 5th toe amputated off of left foot. 5th toe amputated off of the right foot. fluid drained from lungs 4 times in the last 3 months. fluid drained from abd once in the last 3 months - Social History Smoking Status: Former smoker How long have you smoked: 20 years Exposure to second hand smoke: No Alcohol: None Drug Use: none - Physical Exam Vital Signs: Vital Signs - 24 hr Temp Pulse Resp BP Pulse Ox 08/06/19 07:45 92 L 08/06/19 07:26 97.9 F 93 H 18 163/86 91 L 08/05/19 20:24 98.2 F 84 18 185/100 93 L 08/05/19 18:50 93 L General Appearance: moderate distress, lethargy Neurologic Exam: slurred speech Eye Exam: PERRL/EOMI Ears, Nose, Throat Exam: normal ENT inspection Neck Exam: normal inspection Respiratory Exam: diminished breath sounds, crackles/rales, rhonchi Cardiovascular Exam: regular rate/rhythm Gastrointestinal/Abdomen Exam: distention, hepatomegaly, organomegaly Assessment/Plan (1) Hospice care patient Current Visit: Yes Status: Acute Assessment & Plan: Chief Complaint Diagnosis Abdominal pain Allergies Allergy/AdvReac Type Severity Reaction Status Date / Time pregabalin [From Lyrica] Allergy Severe Verified 04/06/19 17:42 duloxetine [From Cymbalta] Allergy Rash Verified 04/06/19 17:42 Vital Signs (Last 24 hours) Temp Pulse Resp BP Pulse Ox 08/06/19 07:45 92 L 08/06/19 07:26 97.9 F 93 H 18 163/86 91 L 08/05/19 20:24 98.2 F 84 18 185/100 93 L 08/05/19 18:50 93 L Current Medications Generic Name Dose Route Start Last Admin Trade Name Freq PRN Reason Stop Dose Admin Lorazepam 1 mg 08/04/19 22:07 08/06/19 10:55 Ativan 2 Mg/1 Ml Vial IV 09/03/19 22:06 1 mg Q4H PRN PRN Administration ANXIETY/AGITATION Morphine Sulfate 4 mg 08/04/19 21:23 08/06/19 10:03 Morphine Sulfate 4 Mg Inj IV 08/09/19 21:22 4 mg Q4H PRN PRN Administration PAIN Ondansetron HCl 4 mg 08/04/19 21:23 08/05/19 16:34 Zofran 4 Mg/2 Ml Vial IV 09/03/19 21:22 4 mg Q6H PRN PRN Administration NAUSEA/VOMITING Discontinued Medications Generic Name Dose Route Start Last Admin Trade Name Freq PRN Reason Stop Dose Admin Dextrose/Lactated Ringer's 1,000 mls @ 999 mls/hr 08/04/19 16:08 08/04/19 18: 49 Dextrose 5%-Lr Iv Solution 1000 Ml IV 08/04/19 17:08 Infused .Q1H1M ONE Infusion Dextrose/Lactated Ringer's Confirm 08/04/19 16:19 Dextrose 5%-Lr Iv Solution 1000 Ml Administered 08/04/19 16:20 Dose 1,000 mls @ ud IV .STK-MED ONE Dextrose/Lactated Ringer's 1,000 mls @ 999 mls/hr 08/04/19 17:54 08/04/19 19: 00 Dextrose 5%-Lr Iv Solution 1000 Ml IV 08/04/19 18:54 Infused .Q1H1M ONE Infusion Dextrose/Lactated Ringer's Confirm 08/04/19 17:54 Dextrose 5%-Lr Iv Solution 1000 Ml Administered 08/04/19 17:55 Dose 1,000 mls @ ud IV .STK-MED ONE Dextrose/Sodium Chloride 1,000 mls @ 100 mls/hr 08/04/19 21:23 Dextrose 5% -0.45 Nacl 1000 Ml IV 09/03/19 21:22 .Q10H AMADA Lorazepam Confirm 08/04/19 22:02 Ativan 2 Mg/1 Ml Vial Administered 08/04/19 22:03 Dose 2 mg .ROUTE .STK-MED ONE Morphine Sulfate 4 mg 08/04/19 18:04 08/04/19 18:28 Morphine Sulfate 4 Mg Inj IV 08/04/19 18:05 4 mg STAT ONE Administration Morphine Sulfate Confirm 08/04/19 18:19 Morphine Sulfate 4 Mg Inj Administered 08/04/19 18:20 Dose 4 mg .ROUTE .STK-MED ONE Intake & Output (Last 24 hours) 08/04/19 08/05/19 08/06/19 08/07/19 11:59 11:59 11:59 11:59 Intake Total 220 320 Output Total 350 625 Balance -130 -305 Weight 93.6 kg Orders (Last 24 hours) Category Date Time Status Saline Lock ROUTINE Care 08/05/19 15:56 Active Patient Care Notes (Last 24 hours) 08/06/19 12:22 Case Management Note by Lilian Maya PAPERWORK IN PROGRESS. AWAIT NOTIFICATION FROM [facility] IF LEVEL II WILL BE NEEDED. PT SHOULD QUALIFY FOR 30 DAY EXEMPTION. WILL FOLLOW. Initialized on 08/06/19 12:22 - END OF NOTE 08/06/19 09:45 (created 08/06/19 12:18) Case Management Note by Lilian Maya PT WANTING TO GO TO PRISON, REPORTS THAT HE DOES NOT WANT TO BE A BURDEN TO HIS FAMILY. HOSPICE IS HERE TALKING WITH PT ABOUT GOING TO [facility] FOR RESPITE STAY. PT IS IN AGREEMENT WITH THIS PLAN. VALERIA, GENERAL TECHNICIAN WITH HOSPICE AT BEDSIDE TALKING WITH PT. WILL PLAN FOR TRANSITION TO RESPITE STAY IF [facility] CAN ACCEPT PT. Initialized on 08/06/19 12:18 - END OF NOTE 08/05/19 16:26 Nursing Note by Manan Kaba Earlier today pt's son Johnathan came in and brought in home meds for us to update home meds in chart. Bisacodyl 5mg, Sennoside 25mg, loperimide 2mg, and Xarleto 20mg were brought in. I asked if that was all the meds that he takes, son stated yes. After writing down meds, I instructed son to take meds back home. After son left a pill was discovered on pt's gown, verified with [facility] the pill was Lasix 40mg. No PO meds have been administered by nursing staff today. Pill disposed of properly. Will educate family if son returns and inform nurse at shift change during report Initialized on 08/05/19 16:26 - END OF NOTE 08/05/19 15:53 Nursing Note by Manan Kaba Spoke to Tessa from [facility], states she talked to Dr Bailey, pt can be saline locked Initialized on 08/05/19 15:53 - END OF NOTE 08/05/19 15:30 Nursing Note by Manan aKba Pt requesting for us to call hospice because he wants to be taken off IV fluids , called [facility] answering service Initialized on 08/05/19 15:30 - END OF NOTE (2) Intractable abdominal pain Current Visit: Yes Status: Acute Code(s): R10.9 - UNSPECIFIED ABDOMINAL PAIN (3) Liver cancer, primary, with metastasis from liver to other site Current Visit: Yes Status: Acute Code(s): C22.8 - MALIGNANT NEOPLASM OF LIVER, PRIMARY, UNSPECIFIED TO TYPE
--- NOTE | 2019-08-06 13:35 | PCM.NOTE ---
Date and Time: 08/06/19 1329 Subjective Assessment: patient seen and examined. still c/o abdominal pain, severe dysphagia - Review of Systems Constitutional: Fatigue, Lethargy, Malaise, Weakness, Weight Loss, No Fever, No Chills Eyes: No Symptoms Ears, Nose, & Throat: No Symptoms Respiratory: No Cough, No Short Of Breath Cardiac: No Chest Pain, No Edema, No Syncope Abdominal/Gastrointestinal: Abdominal Pain, No Nausea, No Vomiting, No Diarrhea Genitourinary Symptoms: No Dysuria Musculoskeletal: No Back Pain, No Neck Pain Skin: No Rash Neurological: No Dizziness, No Focal Weakness, No Sensory Changes Psychological: No Symptoms Endocrine: No Symptoms Hematologic/Lymphatic: No Symptoms Immunological/Allergic: No Symptoms Objective Exam General Appearance: moderate distress Neurologic Exam: alert, depressed mood/affect Skin Exam: jaundice Eye Exam: PERRL Ears, Nose, Throat Exam: normal ENT inspection Respiratory Exam: diminished breath sounds, prolonged expirations, crackles/ rales, rhonchi, wheezing OBJECTIVE DATA Vital Signs: Vital Signs - 24 hr Temp Pulse Resp BP Pulse Ox 08/06/19 07:45 92 L 08/06/19 07:26 97.9 F 93 H 18 163/86 91 L 08/05/19 20:24 98.2 F 84 18 185/100 93 L 08/05/19 18:50 93 L Pain Assessment - Last Documented Pain Intensity 10 Pain Scale Used 0-10 Pain Scale Intake and Output: Intake & Output 08/04/19 08/05/19 08/06/19 08/07/19 11:59 11:59 11:59 11:59 Intake Total 220 320 Output Total 350 625 Balance -130 -305 Weight 93.6 kg Multi-Disciplinary Progress Notes: Multi-Disciplinary Progress Notes 08/06/19 12:22 Case Management Note by Lilian Maya PAPERWORK IN PROGRESS. AWAIT NOTIFICATION FROM [facility] IF LEVEL II WILL BE NEEDED. PT SHOULD QUALIFY FOR 30 DAY EXEMPTION. WILL FOLLOW. Initialized on 08/06/19 12:22 - END OF NOTE 08/06/19 09:45 (created 08/06/19 12:18) Case Management Note by Lilian Maya PT WANTING TO GO TO [facility], REPORTS THAT HE DOES NOT WANT TO BE A BURDEN TO HIS FAMILY. HOSPICE IS HERE TALKING WITH PT ABOUT GOING TO [facility] FOR RESPITE STAY. PT IS IN AGREEMENT WITH THIS PLAN. [facility]ILOS[facility]HY FACULTY WITH HOSPICE AT BEDSIDE TALKING WITH PT. WILL PLAN FOR TRANSITION TO RESPITE STAY IF [facility] CAN ACCEPT PT. Initialized on 08/06/19 12:18 - END OF NOTE Assessment/Plan (1) Hospice care patient Current Visit: Yes Status: Acute Assessment & Plan: Chief Complaint Diagnosis patient admitted for pain control and dysphagia management under hospice ca Allergies Allergy/AdvReac Type Severity Reaction Status Date / Time pregabalin [From Lyrica] Allergy Severe Verified 04/06/19 17:42 duloxetine [From Cymbalta] Allergy Rash Verified 04/06/19 17:42 Vital Signs (Last 24 hours) Temp Pulse Resp BP Pulse Ox 08/06/19 07:45 92 L 08/06/19 07:26 97.9 F 93 H 18 163/86 91 L 08/05/19 20:24 98.2 F 84 18 185/100 93 L 08/05/19 18:50 93 L Current Medications Generic Name Dose Route Start Last Admin Trade Name Freq PRN Reason Stop Dose Admin Lorazepam 1 mg 08/04/19 22:07 08/06/19 10:55 Ativan 2 Mg/1 Ml Vial IV 09/03/19 22:06 1 mg Q4H PRN PRN Administration ANXIETY/AGITATION Morphine Sulfate 4 mg 08/04/19 21:23 08/06/19 10:03 Morphine Sulfate 4 Mg Inj IV 08/09/19 21:22 4 mg Q4H PRN PRN Administration PAIN Ondansetron HCl 4 mg 08/04/19 21:23 08/05/19 16:34 Zofran 4 Mg/2 Ml Vial IV 09/03/19 21:22 4 mg Q6H PRN PRN Administration NAUSEA/VOMITING Discontinued Medications Generic Name Dose Route Start Last Admin Trade Name Freq PRN Reason Stop Dose Admin Dextrose/Lactated Ringer's 1,000 mls @ 999 mls/hr 08/04/19 16:08 08/04/19 18: 49 Dextrose 5%-Lr Iv Solution 1000 Ml IV 08/04/19 17:08 Infused .Q1H1M ONE Infusion Dextrose/Lactated Ringer's Confirm 08/04/19 16:19 Dextrose 5%-Lr Iv Solution 1000 Ml Administered 12/07/19 16:20 Dose 1,000 mls @ ud IV .STK-MED ONE Dextrose/Lactated Ringer's 1,000 mls @ 999 mls/hr 08/04/19 17:54 08/04/19 19: 00 Dextrose 5%-Lr Iv Solution 1000 Ml IV 08/04/19 18:54 Infused .Q1H1M ONE Infusion Dextrose/Lactated Ringer's Confirm 08/04/19 17:54 Dextrose 5%-Lr Iv Solution 1000 Ml Administered 08/04/19 17:55 Dose 1,000 mls @ ud IV .STK-MED ONE Dextrose/Sodium Chloride 1,000 mls @ 100 mls/hr 08/04/19 21:23 Dextrose 5% -0.45 Nacl 1000 Ml IV 09/03/19 21:22 .Q10H AMADA Lorazepam Confirm 08/04/19 22:02 Ativan 2 Mg/1 Ml Vial Administered 08/04/19 22:03 Dose 2 mg .ROUTE .STK-MED ONE Morphine Sulfate 4 mg 08/04/19 18:04 08/04/19 18:28 Morphine Sulfate 4 Mg Inj IV 08/04/19 18:05 4 mg STAT ONE Administration Morphine Sulfate Confirm 08/04/19 18:19 Morphine Sulfate 4 Mg Inj Administered 08/04/19 18:20 Dose 4 mg .ROUTE .STK-MED ONE Intake & Output (Last 24 hours) 08/04/19 08/05/19 08/06/19 08/07/19 11:59 11:59 11:59 11:59 Intake Total 220 320 Output Total 350 625 Balance -130 -305 Weight 93.6 kg Orders (Last 24 hours) Category Date Time Status Saline Lock ROUTINE Care 08/05/19 15:56 Active Patient Care Notes (Last 24 hours) 08/06/19 12:22 Case Management Note by Lilian Maya PAPERWORK IN PROGRESS. AWAIT NOTIFICATION FROM [facility] IF LEVEL II WILL BE NEEDED. PT SHOULD QUALIFY FOR 30 DAY EXEMPTION. WILL FOLLOW. Initialized on 08/06/19 12:22 - END OF NOTE 08/06/19 09:45 (created 08/06/19 12:18) Case Management Note by Lilian Maya PT WANTING TO GO TO [facility], REPORTS THAT HE DOES NOT WANT TO BE A BURDEN TO HIS FAMILY. HOSPICE IS HERE TALKING WITH PT ABOUT GOING TO [facility] FOR RESPITE STAY. PT IS IN AGREEMENT WITH THIS PLAN. [facility], PHILOSOPHY FACULTY WITH HOSPICE AT BEDSIDE TALKING WITH PT. WILL PLAN FOR TRANSITION TO RESPITE STAY IF [facility] CAN ACCEPT PT. Initialized on 08/06/19 12:18 - END OF NOTE 08/05/19 16:26 Nursing Note by Manan Kaba Earlier today pt's son Johnathan came in and brought in home meds for us to update home meds in chart. Bisacodyl 5mg, Sennoside 25mg, loperimide 2mg, and Xarleto 20mg were brought in. I asked if that was all the meds that he takes, son stated yes. After writing down meds, I instructed son to take meds back home. After son left a pill was discovered on pt's gown, verified with [facility] the pill was Lasix 40mg. No PO meds have been administered by nursing staff today. Pill disposed of properly. Will educate family if son returns and inform nurse at shift change during report Initialized on 08/05/19 16:26 - END OF NOTE 08/05/19 15:53 Nursing Note by Manan Kaba Spoke to Tessa Machado, states she talked to Dr Bailey, pt can be saline locked Initialized on 08/05/19 15:53 - END OF NOTE 08/05/19 15:30 Nursing Note by Manan Kaba Pt requesting for us to call hospice because he wants to be taken off IV fluids , called [place] answering service Initialized on 08/05/19 15:30 - END OF NOTE (2) Intractable abdominal pain Current Visit: Yes Status: Acute Code(s): R10.9 - UNSPECIFIED ABDOMINAL PAIN (3) Liver cancer, primary, with metastasis from liver to other site Current Visit: Yes Status: Acute Code(s): C22.8 - MALIGNANT NEOPLASM OF LIVER, PRIMARY, UNSPECIFIED TO TYPE
[2019-08-07] MEDS: MORPHINE SULFATE 4 MG INJ IV PRN ×3 (06:20→15:52)
[2019-08-07] MEDS: Ativan 2 MG/1 ML VIAL IV PRN (07:55)
--- NOTE | 2019-08-07 09:05 | PCM.NOTE ---
Date and Time: 08/07/19903 Subjective Assessment: doing better - Review of Systems Constitutional: No Fever, No Chills Eyes: No Symptoms Ears, Nose, & Throat: No Symptoms Respiratory: No Cough, No Short Of Breath Cardiac: No Chest Pain, No Edema, No Syncope Abdominal/Gastrointestinal: No Abdominal Pain, No Nausea, No Vomiting, No Diarrhea Genitourinary Symptoms: No Dysuria Musculoskeletal: No Back Pain, No Neck Pain Skin: No Rash Neurological: No Dizziness, No Focal Weakness, No Sensory Changes Psychological: No Symptoms Endocrine: No Symptoms Hematologic/Lymphatic: No Symptoms Immunological/Allergic: No Symptoms Objective Exam General Appearance: no apparent distress, alert Neurologic Exam: alert, oriented x 3, cooperative, normal mood/affect, nml cerebellar function, sensation nml, No motor deficits Skin Exam: normal color, warm, dry Eye Exam: PERRL, EOMI, eyes nml inspection Ears, Nose, Throat Exam: normal ENT inspection, pharynx normal, moist mucous membranes Neck Exam: normal inspection, non-tender, supple, full range of motion Respiratory Exam: normal breath sounds, lungs clear, No respiratory distress Cardiovascular Exam: regular rate/rhythm, normal heart sounds Gastrointestinal/Abdomen Exam: soft, No tenderness, No mass Extremity Exam: normal inspection, normal range of motion Back Exam: normal inspection, normal range of motion, No CVA tenderness, No vertebral tenderness Male Genitalia Exam: deferred Rectal Exam: deferred OBJECTIVE DATA Vital Signs: Vital Signs - 24 hr Temp Pulse Resp BP Pulse Ox 08/07/19 07:19 98.2 F 103 H 18 178/92 91 L 08/06/19 23:36 97.6 F 91 H 17 144/77 90 L Pain Assessment - Last Documented Pain Intensity 10 Pain Scale Used 0-10 Pain Scale Intake and Output: Intake & Output 08/04/19 08/05/19 08/06/19 08/07/19 11:59 11:59 11:59 11:59 Intake Total 220 320 360 Output Total 350 638 575 Balance -130 -305 -215 Weight 93.6 kg 93.6 kg Multi-Disciplinary Progress Notes: Multi-Disciplinary Progress Notes 08/06/19 12:22 Case Management Note by Lilian Maya PAPERWORK IN PROGRESS. AWAIT NOTIFICATION FROM [facility] IF LEVEL II WILL BE NEEDED. PT SHOULD QUALIFY FOR 30 DAY EXEMPTION. WILL FOLLOW. Initialized on 08/06/19 12:22 - END OF NOTE 08/06/19 09:45 (created 08/06/19 12:18) Case Management Note by Lilian Maya PT WANTING TO GO TO [facility], REPORTS THAT HE DOES NOT WANT TO BE A BURDEN TO HIS FAMILY. HOSPICE IS HERE TALKING WITH PT ABOUT GOING TO [facility] FOR RESPITE STAY. PT IS IN AGREEMENT WITH THIS PLAN. [facility] GEMOLOGIST WITH HOSPICE AT BEDSIDE TALKING WITH PT. WILL PLAN FOR TRANSITION TO RESPITE STAY IF [facility] CAN ACCEPT PT. Initialized on 08/06/19 12:18 - END OF NOTE Assessment/Plan (1) Hospice care patient Current Visit: Yes Status: Acute (2) Intractable abdominal pain Current Visit: Yes Status: Acute Code(s): R10.9 - UNSPECIFIED ABDOMINAL PAIN (3) Liver cancer, primary, with metastasis from liver to other site Current Visit: Yes Status: Acute Code(s): C22.8 - MALIGNANT NEOPLASM OF LIVER, PRIMARY, UNSPECIFIED TO TYPE
[2019-08-07] MEDS: MORPHINE SULFATE 4 MG INJ IV SCH ×2 (19:53→23:09)
[2019-08-08] MEDS: Ativan 2 MG/1 ML VIAL IV PRN ×2 (01:55→17:46)
[2019-08-08] MEDS: MORPHINE SULFATE 4 MG INJ IV SCH ×5 (04:30→20:21)
[2019-08-08] MEDS: Colace 100 MG PO SCH (09:46)
--- NOTE | 2019-08-08 13:16 | PCM.DS ---
Discharge Summary Date of Admission: 08/04/19 21:17 Admitting Physician: YONIS BINGHAM Primary Care Provider: ARNAV GONZÁLES Allergies Allergies pregabalin [From Lyrica] Allergy (Severe, Verified 04/06/19 17:42) trouble breathing and rash duloxetine [From Cymbalta] Allergy (Verified 04/06/19 17:42) Rash Hospital Summary - Hospital Course Hospital Course: Chief Complaint Diagnosis patient admitted for pain control and dysphagia management under hospice ca Allergies Allergy/AdvReac Type Severity Reaction Status Date / Time pregabalin [From Lyrica] Allergy Severe Verified 04/06/19 17:42 duloxetine [From Cymbalta] Allergy Rash Verified 04/06/19 17:42 Vital Signs (Last 24 hours) Temp Pulse Resp BP Pulse Ox 08/08/19 07:37 93 L 08/08/19 07:00 97.6 F 89 18 160/92 97 08/07/19 21:24 91 L Current Medications Generic Name Dose Route Start Last Admin Trade Name Freq PRN Reason Stop Dose Admin Docusate Sodium 100 mg 08/08/19 10:00 08/08/19 09:46 Colace 100 Mg PO 09/07/19 09:59 100 mg DAILY AMADA Administration Lorazepam 1 mg 08/04/19 22:07 08/08/19 01:55 Ativan 2 Mg/1 Ml Vial IV 09/03/19 22:06 1 mg Q4H PRN PRN Administration ANXIETY/AGITATION Morphine Sulfate 4 mg 08/07/19 20:00 08/08/19 12:03 Morphine Sulfate 4 Mg Inj IV 08/12/19 19:59 4 mg Q4H AMADA Administration Ondansetron HCl 4 mg 08/04/19 21:23 08/05/19 16:34 Zofran 4 Mg/2 Ml Vial IV 09/03/19 21:22 4 mg Q6H PRN PRN Administration NAUSEA/VOMITING Discontinued Medications Generic Name Dose Route Start Last Admin Trade Name Freq PRN Reason Stop Dose Admin Dextrose/Lactated Ringer's 1,000 mls @ 999 mls/hr 08/04/19 16:08 08/04/19 18: 49 Dextrose 5%-Lr Iv Solution 1000 Ml IV 08/04/19 17:08 Infused .Q1H1M ONE Infusion Dextrose/Lactated Ringer's Confirm 08/04/19 16:19 Dextrose 5%-Lr Iv Solution 1000 Ml Administered 08/04/19 16:20 Dose 1,000 mls @ ud IV .STK-MED ONE Dextrose/Lactated Ringer's 1,000 mls @ 999 mls/hr 08/04/19 17:54 08/04/19 19: 00 Dextrose 5%-Lr Iv Solution 1000 Ml IV 08/04/19 18:54 Infused .Q1H1M ONE Infusion Dextrose/Lactated Ringer's Confirm 08/04/19 17:54 Dextrose 5%-Lr Iv Solution 1000 Ml Administered 08/04/19 17:55 Dose 1,000 mls @ ud IV .STK-MED ONE Dextrose/Sodium Chloride 1,000 mls @ 100 mls/hr 08/04/19 21:23 Dextrose 5% -0.45 Nacl 1000 Ml IV 09/03/19 21:22 .Q10H AMADA Lorazepam Confirm 08/04/19 22:02 Ativan 2 Mg/1 Ml Vial Administered 08/04/19 22:03 Dose 2 mg .ROUTE .STK-MED ONE Morphine Sulfate 4 mg 08/04/19 18:04 08/04/19 18:28 Morphine Sulfate 4 Mg Inj IV 08/04/19 18:05 4 mg STAT ONE Administration Morphine Sulfate Confirm 08/04/19 18:19 Morphine Sulfate 4 Mg Inj Administered 08/04/19 18:20 Dose 4 mg .ROUTE .STK-MED ONE Morphine Sulfate 4 mg 08/04/19 21:23 08/07/19 15:52 Morphine Sulfate 4 Mg Inj IV 08/09/19 21:22 4 mg Q4H PRN PRN Administration PAIN Intake & Output (Last 24 hours) 08/06/19 08/07/19 08/08/19 08/09/19 11:59 11:59 11:59 11:59 Intake Total 324 712 0702 Output Total 625 575 Balance -305 -215 1140 Weight 93.6 kg Orders (Last 24 hours) Category Date Time Status Docusate Sodium 100 mg [Colace 100 MG] Med 08/08/19 10:00 Active 100 mg PO DAILY Morphine Sulfate 4 mg Inj Med 08/07/19 20:00 Active 4 mg IV Q4H Patient Care Notes (Last 24 hours) 08/08/19 09:23 Case Management Note by Lilian Maya CHECKED [facility]BSITE FOR LEVEL II COMPLETION. SHOWS LEVEL II IS QUEUED FOR REVIEW. WILL CONTINUE TO FOLLOW FOR LEVEL II COMPLETION. MD ORDER TO DC TO [facility] SOON LEVEL II IS APPROVED. Initialized on 08/08/19 09:23 - END OF NOTE - Vitals & Intake/Output Vital Signs: Vital Signs Temperature 97.6 F 08/08/19 07:00 Pulse Rate 89 08/08/19 07:00 Respiratory Rate 18 08/08/19 07:00 Blood Pressure 160/92 08/08/19 07:00 O2 Sat by Pulse Oximetry 93 L 08/08/19 07:37 Oxygen-Last Documented O2 Percentage 2 Liters = 28% Intake & Output: Intake & Output 08/06/19 08/07/19 08/08/19 08/09/19 11:59 11:59 11:59 11:59 Intake Total 282 132 6644 Output Total 625 575 Balance -305 -215 1140 Weight 93.6 kg - Procedures and Test Procedures and Tests throughout Hospitalization: Therapy Orders & Screens 08/05/19 02:57 OT Screen per Nursing Assess Comment: Protocol Order Physician Instructions: Greater than 3 points order OT Admission Screening Reason For Exam: Triggered on Admission Diagnosis: Abdominal pain Open Wound/Cellutlitis/Pressure Ulcers: No Acute Fx/ORIF/Change in wt bearing status: No Severe MUSCULOSKELETAL pain: No ADL Dysfunction: Yes Acute CVA w/Hemiparesis/Hemiplegia: No Decreased Functional Mobility/Strength: Yes Sprain/Strain: No Acute Post-op Mobility Dysfunction: No Total Points: 4 PT Screen per Nursing Assess Comment: Protocol Order Physician Instructions: Greater than 3 points order PT Admission Screenin Reason For Exam: Triggered on Admission Diagnosis: Abdominal pain Open Wound/Cellutlitis/Pressure Ulcers: No Acute Fx/ORIF/Change in wt bearing status: No Severe MUSCULOSKELETAL pain: No ADL Dysfunction: Yes Acute CVA w/Hemiparesis/Hemiplegia: No Decreased Functional Mobility/Strength: Yes Sprain/Strain: No Acute Post-op Mobility Dysfunction: No Total Points: 4 08/05/19 08:09 Oxygen Nasal Cannula 2 lpm Comment: Diagnosis: Abdominal pain Discharge Exam General Appearance: no apparent distress, alert Neurologic Exam: alert, oriented x 3, cooperative, normal mood/affect, nml cerebellar function, sensation nml, No motor deficits Eye Exam: PERRL, EOMI, eyes nml inspection Ears, Nose, Throat Exam: normal ENT inspection, pharynx normal, moist mucous membranes Neck Exam: normal inspection, non-tender, supple, full range of motion Respiratory Exam: normal breath sounds, lungs clear, No respiratory distress Cardiovascular Exam: regular rate/rhythm, normal heart sounds Gastrointestinal/Abdomen Exam: soft, No tenderness, No mass Male Genitalia Exam: deferred Rectal Exam: deferred Back Exam: normal inspection, normal range of motion, No CVA tenderness, No vertebral tenderness Extremity Exam: normal inspection, normal range of motion Skin Exam: normal color, warm, dry Final Diagnosis/Problem List - Final Discharge Diagnosis/Problem (1) Hospice care patient Current Visit: Yes Status: Acute (2) Intractable abdominal pain Current Visit: Yes Status: Acute Code(s): R10.9 - UNSPECIFIED ABDOMINAL PAIN (3) Liver cancer, primary, with metastasis from liver to other site Current Visit: Yes Status: Acute Code(s): C22.8 - MALIGNANT NEOPLASM OF LIVER, PRIMARY, UNSPECIFIED TO TYPE - Discharge Disposition: DC TO [facility] Condition: Stable Prescriptions: New Hydrocodone/Acetaminophen [[place] 10-325 Tablet] 1 each PO Q4H PRN PRN 10 Days #60 tablet MDD max 6 a day PRN Reason: Moderate To Severe Pain Lorazepam 1 mg [Ativan 1 MG] 1 mg PO QID 15 Days #60 tablet No Action Insulin Glargine [Lantus Insulin] 50 unit SQ QHS Insulin Aspart [NovoLOG Insulin] 0 unit SQ UD PRN PRN Reason: elevated blood sugar Metoprolol Tartrate 25 mg [Lopressor 25MG Tab] 12.5 mg PO BID Folic Acid 1 mg [Folate 1 mg] 1 mg PO DAILY Multivitamin [Multivitamins] 1 each PO DAILY
[2019-08-09] MEDS: MORPHINE SULFATE 4 MG INJ IV SCH ×5 (00:28→17:07)
[2019-08-09] MEDS: Colace 100 MG PO SCH (08:42)
[2019-08-09] MEDS: MORPHINE SULFATE 10 MG/ML IV SCH ×2 (17:20→20:07)
[2019-08-09] MEDS: Zofran 4 MG/2 ML VIAL IV PRN (20:16)
[2019-08-09] MEDS: Ativan 2 MG/1 ML VIAL IV PRN (23:14)
[2019-08-10] MEDS: MORPHINE SULFATE 10 MG/ML IV SCH ×5 (00:30→15:50)
[2019-08-10] MEDS ORDERED: Sodium Chloride 0.9% 10 ML FLUSH Syringe IV PRN (06:22)
[2019-08-10 08:47] VITALS: BP 150/78; PULSE 88
[2019-08-10] MEDS: Colace 100 MG PO SCH (09:26)
[2019-08-10 11:29] VITALS: O2SAT 91
[2019-08-10] MEDS: Ativan 2 MG/1 ML VIAL IV PRN (18:21)
== END 2019-08-10 18:30 | disposition hospice, home (50) | DRG 951 ==
LOC: ED 15:56 → MED SURG 21:17
PROVIDERS: ADMIT General Practice; ATTEND General Practice
DX: Z51.5 Encounter for palliative care (principal); C22.8 Malignant neoplasm of liver, primary, unspecified as to type; R10.9 Unspecified abdominal pain; Z79.899 Other long term (current) drug therapy; E11.9 Type 2 diabetes mellitus without complications; I10 Essential (primary) hypertension; B19.20 Unspecified viral hepatitis C without hepatic coma; R13.10 Dysphagia, unspecified
CPT/HCPCS: 82962; 94760; 94762; 96360; 96374; 99285; J2060; J2270; J2405; A9270-GY

== ENCOUNTER 2019-08-10 16:10 | Inpatient (IN) | payer OTHER ==
[2019-08-10] MEDS: MORPHINE SULFATE 10 MG/ML IV SCH (21:19)
[2019-08-11] MEDS: MORPHINE SULFATE 10 MG/ML IV SCH ×4 (00:35→12:15)
--- NOTE | 2019-08-11 07:26 | PCM.NOTE ---
Date and Time: 08/11/19723 Subjective Assessment: patient is admitted for respite care . doing better - Review of Systems Constitutional: No Fever, No Chills Eyes: No Symptoms Ears, Nose, & Throat: No Symptoms Respiratory: No Cough, No Short Of Breath Cardiac: No Chest Pain, No Edema, No Syncope Abdominal/Gastrointestinal: No Abdominal Pain, No Nausea, No Vomiting, No Diarrhea Genitourinary Symptoms: No Dysuria Musculoskeletal: No Back Pain, No Neck Pain Skin: No Rash Neurological: No Dizziness, No Focal Weakness, No Sensory Changes Psychological: No Symptoms Endocrine: No Symptoms Hematologic/Lymphatic: No Symptoms Immunological/Allergic: No Symptoms Objective Exam General Appearance: no apparent distress, alert Neurologic Exam: alert, oriented x 3, cooperative, normal mood/affect, nml cerebellar function, sensation nml, No motor deficits Skin Exam: normal color, warm, dry Eye Exam: PERRL, EOMI, eyes nml inspection Ears, Nose, Throat Exam: normal ENT inspection, pharynx normal, moist mucous membranes Neck Exam: normal inspection, non-tender, supple, full range of motion Respiratory Exam: normal breath sounds, lungs clear, No respiratory distress Cardiovascular Exam: regular rate/rhythm, normal heart sounds Gastrointestinal/Abdomen Exam: soft, No tenderness, No mass Extremity Exam: normal inspection, normal range of motion Back Exam: normal inspection, normal range of motion, No CVA tenderness, No vertebral tenderness Male Genitalia Exam: deferred Rectal Exam: deferred OBJECTIVE DATA Vital Signs: Vital Signs - 24 hr Temp Pulse Resp BP Pulse Ox 08/10/19 22:42 91 L 08/10/19 20:00 97.6 F 82 20 135/78 93 L 08/10/19 19:37 98.8 F 88 16 150/78 91 L Oxygen-Last 24 hours O2 Percentage 2 Liters = 28% Pain Assessment - Last Documented Pain Intensity 8 Pain Scale Used 0-10 Pain Scale Intake and Output: Intake & Output 08/08/19 08/09/19 08/10/19 08/11/19 11:59 11:59 11:59 11:59 Intake Total 1100 Balance 1100 Weight 93.6 kg Assessment/Plan (1) Liver cancer, primary, with metastasis from liver to other site Current Visit: Yes Status: Chronic Assessment & Plan: Chief Complaint Diagnosis RESPITE CARE Allergies Allergy/AdvReac Type Severity Reaction Status Date / Time pregabalin [From Lyrica] Allergy Severe Verified 04/06/19 17:42 duloxetine [From Cymbalta] Allergy Rash Verified 04/06/19 17:42 Vital Signs (Last 24 hours) Temp Pulse Resp BP Pulse Ox 08/10/19 22:42 91 L 08/10/19 20:00 97.6 F 82 20 135/78 93 L 08/10/19 19:37 98.8 F 88 16 150/78 91 L Current Medications Generic Name Dose Route Start Last Admin Trade Name Freq PRN Reason Stop Dose Admin Docusate Sodium 100 mg 08/11/19 10:00 Colace 100 Mg PO 09/07/19 09:59 DAILY AMADA Lorazepam 1 mg 08/10/19 18:55 Ativan 2 Mg/1 Ml Vial IV 09/03/19 22:06 Q4H PRN PRN ANXIETY/AGITATION Morphine Sulfate 5 mg 08/10/19 20:00 08/11/19 03:32 Morphine Sulfate 10 Mg/Ml IV 08/14/19 15:59 5 mg Q4HT AMADA Administration Ondansetron HCl 4 mg 08/10/19 18:55 Zofran 4 Mg/2 Ml Vial IV 09/03/19 21:22 Q6H PRN PRN NAUSEA/VOMITING Sodium Chloride 10 ml 08/10/19 18:55 Sodium Chloride 0.9% 10 Ml Flush Syringe IV 09/09/19 06:21 PRN PRN FLUSH Intake & Output (Last 24 hours) 08/08/19 08/09/19 08/10/19 08/11/19 11:59 11:59 11:59 11:59 Intake Total 1100 Balance 1100 Weight 93.6 kg Orders (Last 24 hours) Category Date Time Status Up Ad Katie ROUTINE Activity 08/10/19 18:55 Active Admit as Inpatient ROUTINE Care 08/10/19 18:55 Active Admit to Respite Care ROUTINE Care 08/10/19 18:55 Active Code Status Order ROUTINE Care 08/10/19 18:55 Active Fall Protocol Q1H Care 08/10/19 18:55 Active IV Care Q6H Care 08/10/19 18:55 Active Miscellaneous Nursing Order ROUTINE Care 08/10/19 18:55 Active Saline Lock ROUTINE Care 08/10/19 18:55 Active Vital Signs DAILY Care 08/10/19 18:55 Active Order Department Supervisor/Discharge Plan Cons 08/10/19 20:03 Active Nutritional Admission Screen Diet 08/10/19 18:55 Active Regular Diet Diet 08/10/19 Breakfast Active Docusate Sodium 100 mg [Colace 100 MG] Med 08/11/19 10:00 Active 100 mg PO DAILY Lorazepam 2 mg/1 ml [Ativan 2 MG/1 ML VIAL] Med 08/10/19 18:55 Active 1 mg IV Q4H PRN PRN Morphine 10 mg Inj [Morphine Sulfate 10 mg/ml] Med 08/10/19 20:00 Active 5 mg IV Q4HT NaCl 0.9% 10 ML FLUSH [Sodium Chloride 0.9% 10 ML FLUSH Med 08/10/19 18:55 Active Syringe] 10 ml IV PRN PRN Ondansetron HCl 4 mg/2 ml [Zofran 4 MG/2 ML VIAL] Med 08/10/19 18:55 Ordered 4 mg IV Q6H PRN PRN Oxygen Nasal Cannula 2 lpm RT 08/10/19 18:55 Active Pulse Oximetry .continuos RT 08/10/19 18:55 Active Patient Care Notes (Last 24 hours) 08/10/19 21:00 (created 08/11/19 06:32) Nursing Note by Ninoska Vasquez Pt refused to sign papers for chart under Respite Care. States " I dont want to sign anything right now". Initialized on 08/11/19 06:32 - END OF NOTE 08/10/19 20:00 (created 08/11/19 01:15) Nursing Note by Ninoska Vasquez pt very drowsy. O2 sat 84% on RA. O2 2L applied and Sats up to 92%. Will continue to monitor. Initialized on 08/11/19 01:15 - END OF NOTE Code(s): C22.8 - MALIGNANT NEOPLASM OF LIVER, PRIMARY, UNSPECIFIED TO TYPE
[2019-08-11] MEDS: Colace 100 MG PO SCH (08:47)
[2019-08-11] MEDS: Ativan 2 MG/1 ML VIAL IV PRN ×2 (10:38→22:52)
[2019-08-11] MEDS: MORPHINE SULFATE 10 MG/ML IV PRN ×2 (14:40→16:46)
[2019-08-12] MEDS: MORPHINE SULFATE 10 MG/ML IV PRN ×5 (06:45→22:21)
[2019-08-12] MEDS: Colace 100 MG PO SCH (07:50)
--- NOTE | 2019-08-12 08:02 | PCM.NOTE ---
Date and Time: 08/12/19800 Subjective Assessment: doing ok, comfortable - Review of Systems Constitutional: No Fever, No Chills Eyes: No Symptoms Ears, Nose, & Throat: No Symptoms Respiratory: No Cough, No Short Of Breath Cardiac: No Chest Pain, No Edema, No Syncope Abdominal/Gastrointestinal: No Abdominal Pain, No Nausea, No Vomiting, No Diarrhea Genitourinary Symptoms: No Dysuria Musculoskeletal: No Back Pain, No Neck Pain Skin: No Rash Neurological: No Dizziness, No Focal Weakness, No Sensory Changes Psychological: No Symptoms Endocrine: No Symptoms Hematologic/Lymphatic: No Symptoms Immunological/Allergic: No Symptoms Objective Exam General Appearance: no apparent distress, alert Neurologic Exam: alert, oriented x 3, cooperative, normal mood/affect, nml cerebellar function, sensation nml, No motor deficits Skin Exam: normal color, warm, dry Eye Exam: PERRL, EOMI, eyes nml inspection Ears, Nose, Throat Exam: normal ENT inspection, pharynx normal, moist mucous membranes Neck Exam: normal inspection, non-tender, supple, full range of motion Respiratory Exam: normal breath sounds, lungs clear, No respiratory distress Cardiovascular Exam: regular rate/rhythm, normal heart sounds Gastrointestinal/Abdomen Exam: soft, No tenderness, No mass Extremity Exam: normal inspection, normal range of motion Back Exam: normal inspection, normal range of motion, No CVA tenderness, No vertebral tenderness Male Genitalia Exam: deferred Rectal Exam: deferred OBJECTIVE DATA Vital Signs: Vital Signs - 24 hr Temp Pulse Resp BP Pulse Ox 08/12/19 04:00 97.9 F 93 H 19 134/76 94 L 08/12/19 00:00 97.7 F 88 18 145/83 94 L 08/11/19 20:30 93 L 08/11/19 20:00 97.9 F 90 19 145/74 94 L Pain Assessment - Last Documented Pain Intensity 9 Pain Scale Used [facility] Intake and Output: Intake & Output 08/09/19 08/10/19 08/11/19 08/12/19 11:59 11:59 11:59 11:59 Intake Total 1100 480 Balance 1100 480 Weight 93.6 kg Assessment/Plan (1) Liver cancer, primary, with metastasis from liver to other site Current Visit: Yes Status: Chronic Assessment & Plan: Respid care Code(s): C22.8 - MALIGNANT NEOPLASM OF LIVER, PRIMARY, UNSPECIFIED TO TYPE
[2019-08-12] MEDS: Zofran 4 MG/2 ML VIAL IV PRN (19:57)
[2019-08-12] MEDS: Ativan 2 MG/1 ML VIAL IV PRN (21:50)
[2019-08-12] MEDS: Sodium Chloride 0.9% 10 ML FLUSH Syringe IV PRN (21:51)
[2019-08-13] MEDS: Ativan 2 MG/1 ML VIAL IV PRN (02:48)
[2019-08-13] MEDS: MORPHINE SULFATE 10 MG/ML IV PRN ×2 (02:48→12:03)
[2019-08-13] MEDS: Sodium Chloride 0.9% 10 ML FLUSH Syringe IV PRN (02:50)
[2019-08-13 04:49] VITALS: BP 119/72; PULSE 99
[2019-08-13 07:55] VITALS: O2SAT 93
[2019-08-13] MEDS: Colace 100 MG PO SCH (10:45)
[2019-08-13] MEDS: Zofran 4 MG/2 ML VIAL IV PRN (12:03)
== END 2019-08-13 13:48 | DRG 437 ==
LOC: MED SURG 16:30 → UNDOADMIN 16:30 → MED SURG 18:30
PROVIDERS: ADMIT General Practice; ATTEND General Practice
DX: C22.8 Malignant neoplasm of liver, primary, unspecified as to type (principal); R10.9 Unspecified abdominal pain; Z75.5 Holiday relief care
CPT/HCPCS: 94760; J2060; J2270; J2405; A9270-GY